=== PATIENT | male | born 1970 | race Caucasian/White ===

== ENCOUNTER → 2017-09-22 | Outpatient (CLI) | payer MEDICARE, OTHER ==
[2017-09-22 10:18] LABS: HCT 37.2 % (39.0-53.0); HGB 11.2 gm/dL (13.0-17.5); Hypochromasia Moderate; MCH 31.1 pg (25.0-35.0); MCHC 30.3 g/dL (31.0-37.0); MCV 102.8 fL (80.0-100.0); Macrocytosis Slight; Mean Platelet Volume 8.1; Platelet Count 410 k/uL (150-450); RBC 3.61 m/uL (4.30-5.90); RDW 14.8 % (11.5-15.5); WBC 5.7 k/uL (3.8-10.6)
[2017-09-22 10:22] LABS: INR 1.1 (<1.2); Prothrombin Time 10.7 sec (9.0-12.0)
[2017-09-22 10:31] LABS: Albumin 3.6 g/dL (3.5-5.0); Calcium 9.4 mg/dL (8.4-10.2); Phosphorus 3.2 mg/dL (2.5-4.5); Total Bilirubin 0.8 mg/dL (0.2-1.3); Total Protein 7.4 g/dL (6.3-8.2)
[2017-09-22 10:33] LABS: Potassium 4.7 mmol/L (3.5-5.1)
--- NOTE | 2017-09-22 10:50 | US ---
EXAMINATION TYPE: US kidneys/renal and bladder DATE OF EXAM: 09/22/2017 COMPARISON: 08/29/2012 CLINICAL HISTORY: R94.4 ABN KIDNEY FUNCTIONS. Abnormal labs. Poor historian. Hx of Down Syndrome an d Autism EXAM MEASUREMENTS: Right Kidney: 6.8 x 3.3 x 3.2 cm Left Kidney: 6.9 x 4.8 x 3.3 cm Limited exam due to patient unable to stay still during the exam Right Kidney: Appears small in size. No hydronephrosis or masses seen Left Kidney: Appears small in size. No hydronephrosis or masses seen Bladder: Nondistended, not visualized There is no evidence for hydronephrosis at this point in time. No nephrolithiasis is seen. No tomasa s are identified. The urinary bladder is anechoic. Bilateral ureteral jets are seen. IMPRESSION: Stable diminutive kidneys.
[2017-09-22 11:03] LABS: Appearance,Urine Clear (Clear); Bilirubin,Urine Negative (Negative); Blood,Urine Negative (Negative); Color,Urine Yellow; Glucose,Urine (UA) Negative (Negative); Ketones,Urine Negative (Negative); Leukocyte Esterase,Urine Negative (Negative); Nitrite,Urine Negative (Negative); PH, Urine 5.5 (5.0-8.0); Protein,Urine Negative (Negative); Specific Gravity,Urine 1.018 (1.001-1.035); Urobilinogen,Urine <2.0 mg/dL (<2.0)
== END | disposition home or self-care (01) ==
LOC: RADUSWWP 09:39 → EEVIPCON 11:00
PROVIDERS: ATTEND Family Medicine
DX: N27.1 Small kidney, bilateral (principal); R94.4 Abnormal results of kidney function studies
CPT/HCPCS: 36415; 76770; 80053; 81003; 84100; 85027; 85610

== ENCOUNTER → 2018-01-10 | Outpatient (CLI) | payer MEDICARE, OTHER ==
[2018-01-10 10:41] LABS: HCT 39.5 % (39.0-53.0); HGB 12.7 gm/dL (13.0-17.5); MCH 32.9 pg (25.0-35.0); MCHC 32.2 g/dL (31.0-37.0); MCV 102.2 fL (80.0-100.0); Macrocytosis Slight; Mean Platelet Volume 7.4; Platelet Count 269 k/uL (150-450); RBC 3.86 m/uL (4.30-5.90); RDW 15.3 % (11.5-15.5); WBC 4.7 k/uL (3.8-10.6)
[2018-01-10 10:44] LABS: Appearance,Urine Clear (Clear); Bacteria,Urine Rare /hpf; Bilirubin,Urine Negative (Negative); Blood,Urine Trace (Negative); Color,Urine Light Yellow; Glucose,Urine (UA) Negative (Negative); Ketones,Urine Negative (Negative); Leukocyte Esterase,Urine Negative (Negative); Mucus,Urine Rare /hpf; Nitrite,Urine Negative (Negative); Protein,Urine Negative (Negative); RBC,Urine 1 /hpf (0-5); Urobilinogen,Urine <2.0 mg/dL (<2.0); WBC,Urine 1 /hpf (0-5)
[2018-01-10 11:07] LABS: Albumin 3.9 g/dL (3.5-5.0); Magnesium 1.9 mg/dL (1.6-2.3); Phosphorus 3.4 mg/dL (2.5-4.5); Total Bilirubin 0.6 mg/dL (0.2-1.3); Total Protein 7.1 g/dL (6.3-8.2); Uric Acid 7.5 mg/dL (3.5-8.5)
[2018-01-10 16:08] LABS: Iron Saturation 15.02 (15.00-50.00)
[2018-01-10 16:13] LABS: Vitamin D 25 Hydroxy 23.7 ng/mL (30.0-100.0)
[2018-01-10 17:52] LABS: Parathyroid Hormone Intact 108.2 pg/mL (14.0-72.0)
== END | disposition home or self-care (01) ==
LOC: LABWHC1 10:03
PROVIDERS: ATTEND Internal Medicine
DX: E55.9 Vitamin D deficiency, unspecified (principal); M10.9 Gout, unspecified; N39.0 Urinary tract infection, site not specified; D63.1 Anemia in chronic kidney disease; N18.3 Chronic kidney disease, stage 3 (moderate); N25.81 Secondary hyperparathyroidism of renal origin
CPT/HCPCS: 36415; 80053; 81001; 82306; 82728; 83540; 83550; 83735; 83970; 84100; 84550; 85027

== ENCOUNTER 2018-06-01 21:26 | Inpatient (IN) | payer MEDICARE, OTHER ==
[2018-06-01] MEDS: SODIUM CHLORIDE 0.9% 500 ML 500 ML IV SCH (22:42)
[2018-06-01 23:22] LABS: Albumin 3.5 g/dL (3.5-5.0); Calcium 8.8 mg/dL (8.4-10.2); Potassium 4.4 mmol/L (3.5-5.1); Total Bilirubin 0.4 mg/dL (0.2-1.3); Total Protein 7.2 g/dL (6.3-8.2)
[2018-06-01 23:32] LABS: INR 1.1 (<1.2); Prothrombin Time 10.8 sec (9.0-12.0)
[2018-06-01 23:44] LABS: Basophils % (A) 0 %; Eosinophils % (A) 0 %; HCT 37.2 % (39.0-53.0); HGB 11.5 gm/dL (13.0-17.5); Lymphocytes # (A) 0.5 k/uL (1.0-4.8); Lymphocytes % (A) 2 %; MCH 31.8 pg (25.0-35.0); MCHC 30.9 g/dL (31.0-37.0); MCV 103.1 fL (80.0-100.0); Macrocytosis Slight; Mean Platelet Volume 8.2; Monocytes # (A) 0.3 k/uL (0-1.0); Monocytes % (A) 1 %; Neutrophils # (A) 20.1 k/uL (1.3-7.7); Neutrophils % (A) 96 %; Platelet Count 371 k/uL (150-450); RBC 3.61 m/uL (4.30-5.90); RDW 14.4 % (11.5-15.5)
--- NOTE | 2018-06-02 00:05 | ED ---
URI HPI - General Chief Complaint: Upper Respiratory Infection Stated Complaint: coughing, shaking, not eating Time Seen by Provider: 06/01/18 22:20 Source: patient Mode of arrival: ambulatory Limitations: physical limitation - History of Present Illness Initial Comments: Adrian is a 47-year-old male with history of Down syndrome who presents the ED today with his caregiver for evaluation of cough and fever. Caregiver reports that Adrian has had a cough for a few days duration, however when he coughs up productive sputum he then swallows it. Caregiver reports that she noticed today that he had a fever and he didn't seem to want to eat or drink as much as usual so she decided to bring him to the ER for evaluation of possible ammonia. The patient is nonverbal at baseline, - Related Data Home Medications Medication Instructions Recorded Confirmed Allopurinol [Zyloprim] 100 mg PO DAILY 06/01/18 06/01/18 Ferrous Sulfate [Feosol] 325 mg PO BID 06/01/18 06/01/18 hydrOXYzine HCL [Atarax] 25 mg PO HS 06/01/18 06/01/18 Allergies Allergy/AdvReac Type Severity Reaction Status Date / Time No Known Allergies Allergy Verified 06/01/18 22:21 Review of Systems ROS Statement: Those systems with pertinent positive or pertinent negative responses have been documented in the HPI. ROS Other: All systems not noted in ROS Statement are negative. Limitations: ROS unobtainable due to patients medical condition ( is nonverbal) Past Medical History Additional Past Medical History / Comment(s): Down syndrom and autism, kidney issues, cardiac cushion defects History of Any Multi-Drug Resistant Organisms: None Reported Past Surgical History: No Surgical Hx Reported Past Psychological History: No Psychological Hx Reported Smoking Status: Never smoker Past Alcohol Use History: None Reported Past Drug Use History: None Reported General Exam - General Exam Comments Initial Comments: GENERAL: Traumatic appearance HENT: Down faces, webbed neck EYES: The sclera were anicteric and conjunctiva were pink and moist. Extraocular movements were intact and pupils were equal round and reactive to light. Eyelids were unremarkable. PULMONARY: Decreased breath sounds at bilateral bases CARDIOVASCULAR: tachycardic systolic murmus ABDOMEN: Soft and nontender with normal bowel sounds. Patient ticklish and laughing on exam SKIN: Psoriatic lesions on arms NEUROLOGIC: Non-verbal, moving all extremities MUSCULOSKELETAL: Normal extremities with adequate strength and full range of motion. No lower extremity swelling or edema. No calf tenderness. LYMPHATICS: No significant lymphadenopathy is noted PSYCHIATRIC: Non-verbal, autistic, laughing Limitations: no limitations Limitations: physical limitation Course Vital Signs 06/01/18 06/02/18 06/02/18 21:37 02:22 03:26 Temperature 100.7 F H Pulse Rate 107 H 85 66 Respiratory 20 20 16 Rate Blood Pressure 124/75 105/66 100/66 O2 Sat by Pulse 95 95 96 Oximetry Medical Decision Making - Medical Decision Making Patient was seen and evaluated history is obtained from the caregiver Sepsis workup was ordered Chest x-ray consistent with bilateral pneumonia, labs to reveal leukocytosis mildly elevated creatinine that the patient does have a chronic kidney disease IV antibiotics and fluids were ordered Caregiver agreeable to plan for admission for IV fluids and antibiotics Patient is improving after IV fluids, heart rate improved, sleeping comfortably , caregiver remains at bedside Patient care was discussed with Dr. Reina primary care physician who accepts the admission - Lab Data Result diagrams: 06/01/18 22:39 06/01/18 22:39 Lab Results 06/01/18 06/01/18 06/01/18 Range/Units 22:39 22:39 22:39 WBC 21.0 H (3.8-10.6) k/uL RBC 3.61 L (4.30-5.90) m/uL Hgb 11.5 L (13.0-17.5) gm/dL Hct 37.2 L (39.0-53.0) % MCV 103.1 H (80.0-100.0) fL MCH 31.8 (25.0-35.0) pg MCHC 30.9 L (31.0-37.0) g/dL RDW 14.4 (11.5-15.5) % Plt Count 371 (150-450) k/uL Neutrophils % 96 % Lymphocytes % 2 % Monocytes % 1 % Eosinophils % 0 % Basophils % 0 % Neutrophils # 20.1 H (1.3-7.7) k/uL Lymphocytes # 0.5 L (1.0-4.8) k/uL Monocytes # 0.3 (0-1.0) k/uL Eosinophils # 0.0 (0-0.7) k/uL Basophils # 0.0 (0-0.2) k/uL Macrocytosis Slight PT (9.0-12.0) sec INR (<1.2) APTT (22.0-30.0) sec Sodium 141 (137-145) mmol/L Potassium 4.4 (3.5-5.1) mmol/L Chloride 110 H (98-107) mmol/L Carbon Dioxide 21 L (22-30) mmol/L Anion Gap 10 mmol/L BUN 27 H (9-20) mg/dL Creatinine 2.47 H (0.66-1.25) mg/dL Est GFR (CKD-EPI)AfAm 34 (>60 ml/min/1.73 sqM) Est GFR (CKD-EPI)NonAf 30 (>60 ml/min/1.73 sqM) Glucose 167 H (74-99) mg/dL Plasma Lactic Acid Maurisio 1.5 (0.7-2.0) mmol/L Calcium 8.8 (8.4-10.2) mg/dL Total Bilirubin 0.4 (0.2-1.3) mg/dL AST 25 (17-59) U/L ALT 28 (21-72) U/L Alkaline Phosphatase 93 (38-126) U/L Total Protein 7.2 (6.3-8.2) g/dL Albumin 3.5 (3.5-5.0) g/dL 06/01/18 Range/Units 22:39 WBC (3.8-10.6) k/uL RBC (4.30-5.90) m/uL Hgb (13.0-17.5) gm/dL Hct (39.0-53.0) % MCV (80.0-100.0) fL MCH (25.0-35.0) pg MCHC (31.0-37.0) g/dL RDW (11.5-15.5) % Plt Count (150-450) k/uL Neutrophils % % Lymphocytes % % Monocytes % % Eosinophils % % Basophils % % Neutrophils # (1.3-7.7) k/uL Lymphocytes # (1.0-4.8) k/uL Monocytes # (0-1.0) k/uL Eosinophils # (0-0.7) k/uL Basophils # (0-0.2) k/uL Macrocytosis PT 10.8 (9.0-12.0) sec INR 1.1 (<1.2) APTT 24.0 (22.0-30.0) sec Sodium (137-145) mmol/L Potassium (3.5-5.1) mmol/L Chloride (98-107) mmol/L Carbon Dioxide (22-30) mmol/L Anion Gap mmol/L BUN (9-20) mg/dL Creatinine (0.66-1.25) mg/dL Est GFR (CKD-EPI)AfAm (>60 ml/min/1.73 sqM) Est GFR (CKD-EPI)NonAf (>60 ml/min/1.73 sqM) Glucose (74-99) mg/dL Plasma Lactic Acid Maurisio (0.7-2.0) mmol/L Calcium (8.4-10.2) mg/dL Total Bilirubin (0.2-1.3) mg/dL AST (17-59) U/L ALT (21-72) U/L Alkaline Phosphatase (38-126) U/L Total Protein (6.3-8.2) g/dL Albumin (3.5-5.0) g/dL Disposition Clinical Impression: Bilateral pneumonia, Sepsis Disposition: ADMITTED IP TO THIS [facility] Condition: Serious Referrals: Joni Reina DO [Primary Care Provider] - 1-2 days
--- NOTE | 2018-06-02 00:54 | XR ---
EXAMINATION TYPE: XR chest 2V DATE OF EXAM: 06/02/2018 COMPARISON: NONE HISTORY: Cough and fever TECHNIQUE: Frontal and lateral views of the chest are obtained. FINDINGS: Heart is normal. There is some coarsening of the lung markings. There is no gross heart fa ilure. There are probably bilateral lower lobe pulmonary infiltrates. There is no definite heart fail ure. There are chest leads. Bony thorax is intact. IMPRESSION: Bilateral lower lobe pneumonia. Pulmonary fibrosis. No gross heart failure.
[2018-06-02] MEDS ORDERED: AZITHROMYCIN 500 MG in SODIUM CHLORIDE 0.9% 250 ML IVPB STA (01:02)
[2018-06-02] MEDS ORDERED: PNEUMONIA PROTOCOL UTILIZED 1 EACH MISC PO PRN (04:26)
[2018-06-02 10:58] VITALS: BMI 23.2
[2018-06-02] MEDS ORDERED: IPRATROPIUM-ALBUTEROL 3 ML NEB INHALATION PRN (14:17)
[2018-06-02] MEDS ORDERED: ACETAMINOPHEN TAB 325 MG TAB PO PRN (14:25)
--- NOTE | 2018-06-02 14:26 | P.HPIM ---
History of Present Illness H&P Date: 06/02/18 Chief Complaint: cough, fever 47-year-old male with a past medical history significant for Down syndrome who presented to the emergency room with his caregiver due to cough and fever. The patient is nonverbal at baseline. Caregiver reports patient has had a nonproductive cough for about 4-5 days. She states he was just not acting like himself at home and she knew something was wrong so she came to the ER for further evaluation. Chest x-ray completed in the emergency room revealed bilateral lower lobe pneumonia. Pulmonary fibrosis. No gross heart failure. Laboratory data upon admission revealed white count 21.5. Hemoglobin 11.5. Daily count 371. Sodium 141. Potassium 4.4. BUN 27. Creatinine 2.47. Glucose 167. Lactic acid 1.5. Testing for influenza A and B was negative. The patient was admitted to the hospital under the care of Dr. Reina. REVIEW OF SYSTEMS: Unable to complete due to mental status PHYSICAL EXAM: GENERAL: This is a 47-year-old male in no apparent distress at the time of examination. HEENT: Head is atraumatic, normocephalic. Pupils are equal, round, and reactive to light. Sclerae anicteric. Conjunctivae are clear. Mucus membranes of the mouth are moist. Neck is supple. RESPIRATORY: Lungs coarse. No wheezes, rales, or rhonchi. No use of accessory muscles. Patient maintaining oxygen saturation greater than 92%. CARDIOVASCULAR: Regular rate and rhythm. S1 and S2 noted. No systolic or diastolic murmur auscultated. No JVD noted. No S3 or S4 noted. GASTROINTESTINAL: No distention noted. Abdomen soft and round. Normal active bowel sounds auscultated x 4 quadrants. INTEGUMENTARY: No cyanosis. No jaundice. No rashes noted. No cellulitis noted. EXTREMITIES: 2+ peripheral pulses. No evidence of peripheral edema. NEUROLOGIC: Cranial nerves II-XII grossly intact. PSYCHIATRIC: Awake and alert. Nonverbal at baseline. ASSESSMENT: Bilateral pneumonia, community-acquired Leukocytosis Acute kidney injury, current 2.47 on admission, secondary to decreased oral intake Chronic kidney disease, stage III History of Down syndrome History of autism History of gout PLAN: Continue antibiotics: zithromax and ceftriaxone Sputum culture Mucinex await results of blood cultures Home meds as appropriate Monitor labs GI prophylaxis: Protonix 40 mg PO Daily DVT prophylaxis: SCDs to bilateral LE Monitor vital signs and address as appropriate Discharge planning: Patient to return home when stable. Patient has a caregiver. Further recommendations pending patient's course Nurse practitioner note has been reviewed by physician. Signing provider agrees with the documented findings, assessment, and plan of care. Past Medical History Additional Past Medical History / Comment(s): eDown syndrom and autism, kidney issues, cardiac cushion defects, gout arthritis and psoriasis pnuemonia years ago with pneumothorax History of Any Multi-Drug Resistant Organisms: None Reported Past Surgical History: No Surgical Hx Reported Past Psychological History: No Psychological Hx Reported Smoking Status: Never smoker Past Alcohol Use History: None Reported Past Drug Use History: None Reported Medications and Allergies Home Medications Medication Instructions Recorded Confirmed Type Allopurinol [Zyloprim] 100 mg PO DAILY 06/01/18 06/01/18 History Ferrous Sulfate [Feosol] 325 mg PO BID 06/01/18 06/01/18 History hydrOXYzine HCL [Atarax] 25 mg PO HS 06/01/18 06/01/18 History Allergies Allergy/AdvReac Type Severity Reaction Status Date / Time No Known Allergies Allergy Verified 06/01/18 22:21 Physical Exam Vitals: Vital Signs Temp Pulse Resp BP Pulse Ox 06/02/18 10:00 82 18 103/63 06/02/18 09:00 86 10 L 110/67 06/02/18 08:00 86 11 L 93/67 06/02/18 07:00 63 13 114/54 06/02/18 06:00 62 13 102/61 97 06/02/18 05:00 80 12 98/65 95 06/02/18 04:00 75 14 99/65 96 06/02/18 03:26 66 16 100/66 96 06/02/18 02:22 85 20 105/66 95 06/01/18 21:37 100.7 F H 107 H 20 124/75 95 Intake and Output 06/01/18 06/02/18 06/02/18 22:59 06:59 14:59 Other: Weight 52.163 kg 52.163 kg Results CBC & Chem 7: 06/01/18 22:39 06/01/18 22:39 Labs: Abnormal Lab Results - Last 24 Hours (Table) 11/29/18 11/29/18 Range/Units 22:39 22:39 WBC 21.0 H (3.8-10.6) k/uL RBC 3.61 L (4.30-5.90) m/uL Hgb 11.5 L (13.0-17.5) gm/dL Hct 37.2 L (39.0-53.0) % MCV 103.1 H (80.0-100.0) fL MCHC 30.9 L (31.0-37.0) g/dL Neutrophils # 20.1 H (1.3-7.7) k/uL Lymphocytes # 0.5 L (1.0-4.8) k/uL Chloride 110 H (98-107) mmol/L Carbon Dioxide 21 L (22-30) mmol/L BUN 27 H (9-20) mg/dL Creatinine 2.47 H (0.66-1.25) mg/dL Glucose 167 H (74-99) mg/dL Thrombosis Risk Factor Assmnt - Choose All That Apply Each Factor Represents 1 point: Age 41-60 years Thrombosis Risk Factor Assessment Total Risk Factor Score: 1 Thrombosis Risk Factor Assessment Level: Low Risk
[2018-06-02] MEDS: SODIUM CHLORIDE 0.9% 1,000 ML IV SCH (15:45)
[2018-06-02] MEDS: IPRATROPIUM-ALBUTEROL 3 ML NEB INHALATION SCH ×3 (17:20→23:26)
[2018-06-02] MEDS: FERROUS SULFATE 325 MG TAB PO SCH (17:27)
[2018-06-02] MEDS: guaiFENesin 600 MG TABLET.ER PO SCH (22:41)
[2018-06-02] MEDS: hydrOXYzine HCL 25 MG TAB PO SCH (22:41)
[2018-06-03] MEDS: IPRATROPIUM-ALBUTEROL 3 ML NEB INHALATION SCH ×6 (02:59→23:30)
[2018-06-03] MEDS: SODIUM CHLORIDE 0.9% 1,000 ML IV SCH ×2 (06:38→17:11)
[2018-06-03] MEDS: FERROUS SULFATE 325 MG TAB PO SCH ×2 (08:04→18:01)
[2018-06-03] MEDS: guaiFENesin 600 MG TABLET.ER PO SCH ×2 (08:04→20:04)
[2018-06-03] MEDS: AZITHROMYCIN 500 MG TAB PO SCH (08:04)
[2018-06-03] MEDS: PANTOPRAZOLE 40 MG TABLET PO SCH (08:04)
[2018-06-03] MEDS: ALLOPURINOL 100 MG TAB PO SCH (08:04)
--- NOTE | 2018-06-03 09:46 | XR ---
EXAMINATION TYPE: XR chest 2V DATE OF EXAM: 06/03/2018 COMPARISON: 06/02/2018 HISTORY: Follow-up for pneumonia. TECHNIQUE: Frontal and lateral views of the chest are obtained. FINDINGS: Frontal view is suboptimal however multifocal airspace disease is demonstrated on the late ral view. Airspace disease is most pronounced within the right middle lobe and at the left lung base although also seen within the right lower lobe. Cardiomediastinal silhouette again appears upper limi ts of normal size but is partially obscured. Osseous structures are grossly intact. IMPRESSION: Suboptimal exam however there is appearance of increasing confluence of the right middle lobe and bibasilar opacities suspicious for multifocal pneumonia.
[2018-06-03 12:00] LABS: Basophils # (A) 0.1 k/uL (0-0.2); Basophils % (A) 1 %; Eosinophils # (A) 0.1 k/uL (0-0.7); Eosinophils % (A) 1 %; HCT 35.1 % (39.0-53.0); Hypochromasia Slight; Lymphocytes # (A) 1.4 k/uL (1.0-4.8); Lymphocytes % (A) 15 %; MCH 32.4 pg (25.0-35.0); MCHC 31.4 g/dL (31.0-37.0); MCV 103.4 fL (80.0-100.0); Macrocytosis Slight; Mean Platelet Volume 7.7; Monocytes # (A) 0.5 k/uL (0-1.0); Monocytes % (A) 5 %; Neutrophils # (A) 7.4 k/uL (1.3-7.7); Neutrophils % (A) 77 %; Platelet Count 339 k/uL (150-450); RDW 14.3 % (11.5-15.5); WBC 9.6 k/uL (3.8-10.6)
[2018-06-03 12:20] LABS: Calcium 8.2 mg/dL (8.4-10.2); Potassium 4.7 mmol/L (3.5-5.1)
[2018-06-03] MEDS ORDERED: FUROSEMIDE 10 MG/ML 4 ML VIAL IV STA (18:33)
[2018-06-03] MEDS: hydrOXYzine HCL 25 MG TAB PO SCH (20:04)
--- NOTE | 2018-06-03 23:30 | PN ---
PROGRESS NOTE DATE OF SERVICE: 06/03/2018. I am covering for Dr. Reina. HISTORY OF PRESENT ILLNESS: This 47-year-old gentleman with a past medical history of multiple medical problems including Down syndrome,kidney disease system, cardiac , gouty arthritis, psoriasis, and previous pneumonia, was admitted with bilateral pneumonia. Otherwise at this time the patient still has a cough. Patient is noncommunicative at this time. The caregiver is at the bedside. The patient is closely monitored. Patient on broad- spectrum IV antibiotics. PAST MEDICAL HISTORY: Reviewed. REVIEW OF SYSTEMS: Could not be taken. CURRENT MEDICATIONS: 1. Tylenol 650 every 4 hours p.r.n. 2. DuoNeb q.i.d. and p.r.n. 4. Zithromax 500 mg p.o. daily. 5. Rocephin 1 g daily. 6. Iron sulfate 320 mg b.i.d. 7. Mucinex 600 mg p.o. b.i.d. 8. Atarax 25 mg at bedtime. 9. Protonix 40 mg daily. PHYSICAL EXAM: Patient is alert, oriented x3. The pulse is 74, blood pressure 114/70, respiration 18, temperature 98.6, pulse ox 94% on room air. HEENT: Conjunctivae normal. Oral mucosa moist. NECK: No jugular venous distention. No lymph node enlargement. CARDIOVASCULAR: S1 and S2 muffled. LUNGS: Breath sounds diminished at the bases. Scattered rhonchi and coarse crackles present. ABDOMEN: Soft, nontender. Legs no edema. NERVOUS SYSTEM: No focal deficits. LABS: WBC 9.2, hemoglobin 11, MCV 103, sodium 143, potassium 4.7. Influenza is negative. ASSESSMENT: 1. Bilateral pneumonia, possibly community-acquired. 2. Leukocytosis. 3. Acute kidney injury with possible prerenal factors. 4. Chronic kidney disease stage III. 5. History of Down syndrome. 6. gout. RECOMMENDATIONS AND DISCUSSION: In this 47-year-old gentleman who presented with multiple complex medical problems, we will monitor the patient closely, continue the current medications and treatment plan. At this time I recommend continue with bronchodilators. Continue with IV antibiotics. Patient is on Zithromax and Rocephin. I would recommend to continue the current medications. Chest x-ray was personally reviewed. Further recommendations to follow. MMODL / IJN: [id number] / SHANEL
[2018-06-04] MEDS: IPRATROPIUM-ALBUTEROL 3 ML NEB INHALATION SCH ×6 (03:09→23:29)
[2018-06-04] MEDS: PANTOPRAZOLE 40 MG TABLET PO SCH (07:32)
[2018-06-04] MEDS: FERROUS SULFATE 325 MG TAB PO SCH ×2 (07:32→17:28)
[2018-06-04] MEDS: ALLOPURINOL 100 MG TAB PO SCH (07:32)
[2018-06-04] MEDS: guaiFENesin 600 MG TABLET.ER PO SCH ×2 (07:32→19:54)
[2018-06-04] MEDS: AZITHROMYCIN 500 MG TAB PO SCH (07:33)
[2018-06-04 09:30] LABS: Basophils # (A) 0.1 k/uL (0-0.2); Basophils % (A) 1 %; Eosinophils # (A) 0.1 k/uL (0-0.7); Eosinophils % (A) 1 %; HCT 36.5 % (39.0-53.0); HGB 11.4 gm/dL (13.0-17.5); Hypochromasia Slight; Lymphocytes # (A) 1.4 k/uL (1.0-4.8); Lymphocytes % (A) 19 %; MCH 32.4 pg (25.0-35.0); MCHC 31.3 g/dL (31.0-37.0); MCV 103.4 fL (80.0-100.0); Macrocytosis Slight; Mean Platelet Volume 7.5; Monocytes # (A) 0.4 k/uL (0-1.0); Monocytes % (A) 5 %; Neutrophils # (A) 5.3 k/uL (1.3-7.7); Neutrophils % (A) 72 %; Platelet Count 319 k/uL (150-450); RBC 3.53 m/uL (4.30-5.90); RDW 14.2 % (11.5-15.5); WBC 7.4 k/uL (3.8-10.6)
[2018-06-04 09:32] LABS: Calcium 8.2 mg/dL (8.4-10.2); Potassium 4.4 mmol/L (3.5-5.1)
[2018-06-04] MEDS: hydrOXYzine HCL 25 MG TAB PO SCH (19:53)
--- NOTE | 2018-06-04 20:16 | PN ---
PROGRESS NOTE DATE OF SERVICE: 06/04/2018 I am covering for Dr. Reina. This 47-year-old gentleman was admitted with bilateral pneumonia. Also had renal failure. No chest pain. No palpitations. No fever. EXAM: Alert and oriented x3. Pulse is 79, blood pressure 119/60, respiration 18, temperature 97.4, pulse ox 94% on room air. HEENT: Conjunctivae normal. Oral mucosa moist. NECK: No jugular venous distention. No lymph node enlargement. CARDIOVASCULAR: S1, S2. RESPIRATORY: Diminished breath sounds at the bases. A few scattered rhonchi and crackles. ABDOMEN: Soft, nontender. LEGS: No swelling. NERVOUS SYSTEM: No focal deficits. LABS: WBC 7, hemoglobin 11.4. Creatinine is 2.39. Influenza negative. ASSESSMENT: 1. Bilateral pneumonia, possibly community acquired. 2. Leukocytosis. 3. Acute kidney injury with possible prerenal factor. 4. Chronic kidney disease stage III. 5. History of Down syndrome. 6. Gout history. RECOMMENDATIONS: Recommend to continue current management, continue symptomatic treatment. The BNP is only 413. Continue rest of medications. Repeat labs. Repeat creatinine. Continue the antibiotics. Dr. Reina will follow. MMODL / IJN: [id number] /
[2018-06-05] MEDS: IPRATROPIUM-ALBUTEROL 3 ML NEB INHALATION SCH ×2 (04:17→09:57)
[2018-06-05 05:37] VITALS: BP 168/92; PULSE 71; RESP 18; TEMP 98.3
[2018-06-05] MEDS: guaiFENesin 600 MG TABLET.ER PO SCH (07:30)
[2018-06-05] MEDS: PANTOPRAZOLE 40 MG TABLET PO SCH (07:30)
[2018-06-05] MEDS: ALLOPURINOL 100 MG TAB PO SCH (07:30)
[2018-06-05] MEDS: FERROUS SULFATE 325 MG TAB PO SCH (07:30)
[2018-06-05] MEDS: AZITHROMYCIN 500 MG TAB PO SCH (07:30)
--- NOTE | 2018-06-05 09:38 | P.DS ---
Providers Date of admission: 06/02/18 04:26 Expected date of discharge: 06/05/18 Attending physician: Joni Reina Primary care physician: Joni Reina [facility] Course: 47-year-old male with a past medical history significant for Down syndrome who presented to the emergency room with his caregiver due to cough and fever. The patient is nonverbal at baseline. Caregiver reports patient has had a nonproductive cough for about 4-5 days. She states he was just not acting like himself at home and she knew something was wrong so she came to the ER for further evaluation. Chest x-ray completed in the emergency room revealed bilateral lower lobe pneumonia. Pulmonary fibrosis. No gross heart failure. Laboratory data upon admission revealed white count 21.5. Hemoglobin 11.5. Daily count 371. Sodium 141. Potassium 4.4. BUN 27. Creatinine 2.47. Glucose 167. Lactic acid 1.5. Testing for influenza A and B was negative. The patient received IV hydration and antibiotics. He has improved and is back to his baseline. He was deemed stable for discharge home today. Discharge Diagnosis: Bilateral pneumonia, community-acquired Sepsis, present on admission, secondary to above, resolved Leukocytosis Acute kidney injury, current 2.47 on admission, secondary to decreased oral intake Chronic kidney disease, stage III History of Down syndrome History of autism History of gout Nurse practitioner note has been reviewed by physician. Signing provider agrees with the documented findings, assessment, and plan of care. Patient Condition at Discharge: Good Plan - Discharge Summary New Discharge Prescriptions: New Cefuroxime Axetil [Ceftin] 500 mg PO BID #10 tab guaiFENesin [Mucinex] 600 mg PO Q12HR #30 tab Continue hydrOXYzine HCL [Atarax] 25 mg PO HS Ferrous Sulfate [Iron (65 MG Elemental)] 325 mg PO BID Allopurinol [Zyloprim] 100 mg PO DAILY Discharge Medication List Allopurinol [Zyloprim] 100 mg PO DAILY 06/01/18 [History] Ferrous Sulfate [Iron (65 MG Elemental)] 325 mg PO BID 06/01/18 [History] hydrOXYzine HCL [Atarax] 25 mg PO HS 06/01/18 [History] Cefuroxime Axetil [Ceftin] 500 mg PO BID #10 tab 06/05/18 [Rx] guaiFENesin [Mucinex] 600 mg PO Q12HR #30 tab 06/05/18 [Rx] Follow up Appointment(s)/Referral(s): Joni Reina DO [Primary Care Provider] - 1 Week (caregiver stated she will make his appointment) Patient Instructions/Handouts: Pneumonia (DC) Discharge Disposition: HOME SELF-CARE
--- NOTE | 2018-06-05 11:13 | ECHOF ---
Referral Reason:chf MEASUREMENTS -------- HEIGHT: 149.9 cm WEIGHT: 52.2 kg BP: 168/92 RVIDd: 3.5 cm (< 3.3) IVSd: 1.0 cm (0.6 - 1.1) LVIDd: 4.1 cm (3.9 - 5.3) LVPWd: 0.9 cm (0.6 - 1.1) IVSs: 1.4 cm LVIDs: 2.4 cm LVPWs: 1.5 cm LA Diam: 2.5 cm (2.7 - 3.8) LAESV Index (A-L): 9.35 ml/m Ao Diam: 3.1 cm (2.0 - 3.7) AV Cusp: 2.2 cm (1.5 - 2.6) MV EXCURSION: 12.475 mm (> 18.000) MV EF SLOPE: 31 mm/s (70 - 150) EPSS: 1.1 cm AR PHT: 926 ms RAP: 5.00 mmHg RVSP: 85.33 mmHg FINDINGS -------- Sinus rhythm. This was a technically adequate study. The left ventricular size is normal. Left ventricular wall thickness is normal. Overall left vent ricular systolic function is normal with, an EF between 55 - 60 %. The right ventricle is mildly enlarged. Normal LA size by volume 22+/-6 ml/m2. The right atrium is normal in size. The aortic valve is trileaflet and appears structurally normal. There is mild aortic regurgitation. The mitral valve is normal. Mild mitral regurgitation is present. Moderate tricuspid regurgitation present. There is severe pulmonary hypertension. Mild prolapse o f the anterior tricuspid valve leaflet. There is no pulmonic regurgitation present. The aortic root size is normal. IVC Not well visulized. There is no pericardial effusion. CONCLUSIONS -------- 1. Sinus rhythm. 2. This was a technically adequate study. 3. The left ventricular size is normal. 4. Left ventricular wall thickness is normal. 5. Overall left ventricular systolic function is normal with, an EF between 55 - 60 %. 6. The right ventricle is mildly enlarged. 7. Normal LA size by volume 22+/-6 ml/m2. 8. The aortic valve is trileaflet and appears structurally normal. 9. There is mild aortic regurgitation. 10. The mitral valve is normal. 11. Mild mitral regurgitation is present. 12. Moderate tricuspid regurgitation present. 13. There is severe pulmonary hypertension. 14. Mild prolapse of the anterior tricuspid valve leaflet. 15. There is no pulmonic regurgitation present. 16. The aortic root size is normal. 17. IVC Not well visulized. 18. There is no pericardial effusion. AIR HOLE DRILLER: Violet Bruno RDCS
--- NOTE | 2018-06-08 07:46 | CDI ---
Last Revision, June 2017 Documentation Clarification Form Date: 06/08/18 From: Vianey Sinclair Phone: If you have a question regarding this query, please contact Prieto Prather at [phone] between 8am and 5pm. Admit Date: 06/02/2018 4:26:00 AM Patient Name: Adrian Londono Visit Number: [id number] Discharge Date: 06/05/18 ATTENTION: The Clinical Documentation Specialists (CDI) and [facility] Coding Staff appreciate your assistance in clarifying documentation. Please respond to the clarification below the line at the bottom and electronically sign. The CDI & [facility] Coding staff will review the response and follow-up if needed. Please note: Queries are made part of the Legal Health Record. If you have any questions, please contact the author of this message via ITS. Joni Middleton , /LAN Ya Sepsis is documented in the ED note. History/Risk Factors: Patient was admitted for community acquired pneumonia. Patient has a history of CKD stage 3, pulmonary fibrosis, Down's syndrome and autism. Clinical Indicators: Leukocytosis, fever. WBC/Left Shift:: 21.0/20.1 Lactic acid: 1.5 Blood cultures: No growth. Vitals signs on admission: T. 100.7, P. 107, R. 20, BP 124/75 Treatment: Antibiotics: IV Azithromycin, IV Ceftriaxone, PO Azithromycin IV Bolus: 1 liter sodium chloride In your professional opinion, please clarify if these findings signify one of the following conditions, whether the condition is POA, and cause, if known: Sepsis ruled out SIRS, without underlying infectious process Sepsis Severe Sepsis Septic Shock Other, please specify Unable to determine Link or clarify if there is associated (due to/with): Organ failure Shock MTDD
== END 2018-06-05 10:29 | disposition home or self-care (01) | DRG 871 ==
LOC: EC 21:26 → 4MS4W 06-02 04:26
PROVIDERS: ADMIT Family Medicine; ATTEND Family Medicine
DX: A41.9 Sepsis, unspecified organism (principal); J18.9 Pneumonia, unspecified organism; F84.0 Autistic disorder; N17.9 Acute kidney failure, unspecified; J84.10 Pulmonary fibrosis, unspecified; M10.9 Gout, unspecified; N18.3 Chronic kidney disease, stage 3 (moderate); Q90.9 Down syndrome, unspecified; L40.9 Psoriasis, unspecified; Z79.899 Other long term (current) drug therapy; Z87.01 Personal history of pneumonia (recurrent)
CPT/HCPCS: 36415; 71046; 80048; 80053; 83605; 83880; 85025; 85610; 85730; 87040; 87502; 93005; 93306; 94640; 96365; 96366; 96367; 99284

== ENCOUNTER 2018-10-16 09:29 | Emergency (ER) | payer MEDICARE, OTHER ==
--- NOTE | 2018-10-16 10:20 | ED ---
General Adult HPI - General Chief complaint: Extremity Injury, Upper Stated complaint: left hand/fingers pain Time Seen by Provider: 10/16/18 09:44 Source: patient Mode of arrival: ambulatory Limitations: no limitations - History of Present Illness Initial comments: Dictation was produced using [employer] dictation software. please excuse any grammatical, word or spelling errors. Chief Complaint: 48-year-old male past medical history of autism and Down syndrome presents with left hand issues. History of Present Illness: 48-year-old male with mental retardation, Down syndrome and autism. He is brought in by tax credit leasing consultant. Patient noted to have abnormal hand positioning. Patient unable to provide detailed H PI at this time given mental status. However tax credit leasing consultant noted that this morning his hand was kind of in a closed position. Patient does have a history of arthritis. Clipper Machine was concerned patient is having a stroke. The ROS documented in this emergency department record has been reviewed and confirmed by me. Those systems with pertinent positive or negative responses have been documented in the HPI. All other systems are other negative and/or noncontributory. PHYSICAL EXAM: General Impression: not in acute distress HEENT: Normocephalic atraumatic, extra-ocular movements intact, pupils equal and reactive to light bilaterally, mucous membranes moist. Cardiovascular: Heart regular rate and rhythm, S1&S2 audible, no murmurs, rubs or gallops Chest: Lungs clear to auscultation bilaterally, no rhonchi, no wheeze, no rales Abdomen: Bowel sounds present, abdomen soft, non-tender, non-distended, no organomegaly Musculoskeletal: Pulses present and equal in all extremities, no peripheral edema Motor: no focal deficits noted Neurological: CN II-XII grossly intact, no focal motor or sensory deficits noted, no facial asymmetry, motor movements intact to the left hand, intact sensation to pain. Full abduction of left upper extremity symmetrical to right. No gait ataxia. Skin: Intact with no visualized rashes Psych: Normal affect and mood ED course: 48-year-old male with past medical history mental retardation, Down syndrome and autism presents with abnormal hand positioning. Patient is well- appearing at this time. At this point reassurance provided. No signs and symptoms to suggest stroke at this time. Likely patient's symptoms are secondary to arthritis. Clipper Machine is told to follow-up with primary care physician upon discharge per she is counseled and instructed on the signs of C VA. EKG interpretation: Ventricular rate [default value]. No TN prolongation, no QTC prolongation, no ST or T-wave changes noted. EKG compared to [default value] showing no changes. Overall, this EKG is unremarkable - Related Data Home Medications Medication Instructions Recorded Confirmed Allopurinol [Zyloprim] 100 mg PO DAILY 06/01/18 06/01/18 Ferrous Sulfate [Iron (65 MG 325 mg PO BID 06/01/18 06/01/18 Elemental)] hydrOXYzine HCL [Atarax] 25 mg PO HS 06/01/18 06/01/18 Previous Rx's Medication Instructions Recorded Cefuroxime Axetil [Ceftin] 500 mg PO BID #10 tab 06/05/18 guaiFENesin [Mucinex] 600 mg PO Q12HR #30 tab 06/05/18 Allergies Allergy/AdvReac Type Severity Reaction Status Date / Time No Known Allergies Allergy Verified 10/16/18 09:40 Review of Systems ROS Statement: Those systems with pertinent positive or pertinent negative responses have been documented in the HPI. ROS Other: All systems not noted in ROS Statement are negative. Past Medical History Additional Past Medical History / Comment(s): Down syndrom and autism, kidney issues, cardiac cushion defects, gout arthritis and psoriasis pnuemonia years ago with pneumothorax History of Any Multi-Drug Resistant Organisms: None Reported Past Surgical History: No Surgical Hx Reported Past Psychological History: No Psychological Hx Reported Smoking Status: Never smoker Past Alcohol Use History: None Reported Past Drug Use History: None Reported General Exam Limitations: no limitations Disposition Clinical Impression: Hand pain Disposition: HOME SELF-CARE Condition: Good Instructions (If sedation given, give patient instructions): Hand Sprain (ED) Is patient prescribed a controlled substance at d/c from ED?: No Referrals: Joni Reina DO [Primary Care Provider] - 1-2 days Time of Disposition: 10:20
== END 2018-10-16 10:36 | disposition home or self-care (01) ==
LOC: EC 09:29
DX: M79.642 Pain in left hand (principal); Q90.9 Down syndrome, unspecified; F84.0 Autistic disorder; M10.9 Gout, unspecified; Z79.899 Other long term (current) drug therapy
CPT/HCPCS: 99283

== ENCOUNTER 2019-07-26 13:31 | Inpatient (IN) | payer MEDICARE, OTHER ==
--- NOTE | 2019-07-26 14:30 | ED ---
General Adult HPI - General Chief complaint: Shortness of Breath Stated complaint: cough, SOB Time Seen by Provider: 07/26/19 13:57 Source: patient, RN notes reviewed, Caregiver Mode of arrival: wheelchair Limitations: altered mental status - History of Present Illness Initial comments: 48-year-old male presents to the emergency department for a chief complaint of cough. Caregiver states the patient developed a cough about 2 weeks ago. States he has been on Keflex for about 6 days but it does not seem to be improving. States his breathing seemed a little bit short of breath but then improved. States he is not eating normally but is continuing to drink some. States that he has had tremors which he gets with fevers however she has not detected any fevers. States that she is here because she would like patient to have a chest x-ray for pneumonia. She states that he is very uncooperative and would prefer to just do a chest x-ray and check for the flu before initiating any blood work. Patient is nonverbal.Patient has no other complaints at this time including chest pain, abdominal pain, nausea or vomiting, headache, or visual changes. - Related Data Home Medications Medication Instructions Recorded Confirmed Allopurinol [Zyloprim] 100 mg PO DAILY 06/01/18 10/16/18 Ferrous Sulfate [Iron (65 MG 325 mg PO BID 06/01/18 10/16/18 Elemental)] hydrOXYzine HCL [Atarax] 25 mg PO HS 06/01/18 10/16/18 Allergies Allergy/AdvReac Type Severity Reaction Status Date / Time amoxicillin AdvReac Unknown Verified 07/26/19 13:41 Review of Systems ROS Statement: Those systems with pertinent positive or pertinent negative responses have been documented in the HPI. ROS Other: All systems not noted in ROS Statement are negative. Past Medical History Additional Past Medical History / Comment(s): Down syndrom and autism, kidney issues, cardiac cushion defects, gout arthritis and psoriasis pnuemonia years ago with pneumothorax History of Any Multi-Drug Resistant Organisms: None Reported Past Surgical History: No Surgical Hx Reported Past Psychological History: No Psychological Hx Reported Smoking Status: Never smoker Past Alcohol Use History: None Reported Past Drug Use History: None Reported General Exam Limitations: altered mental status General appearance: alert, in no apparent distress (Ambulating around room) Head exam: Present: atraumatic, normocephalic, normal inspection Eye exam: Present: normal appearance, PERRL, EOMI. Absent: scleral icterus, conjunctival injection, periorbital swelling ENT exam: Present: normal exam, mucous membranes moist Neck exam: Present: normal inspection, full ROM. Absent: tenderness, meningismu s, lymphadenopathy Respiratory exam: Present: normal lung sounds bilaterally. Absent: respiratory distress, wheezes, rales, rhonchi, stridor Cardiovascular Exam: Present: regular rate, normal rhythm, normal heart sounds. Absent: bradycardia, tachycardia, irregular rhythm Neurological exam: Present: alert, normal gait Course Vital Signs 07/26/19 13:34 Temperature 98.1 F Pulse Rate 73 Respiratory 19 Rate Blood Pressure 142/71 O2 Sat by Pulse 93 L Oximetry Procedures - Sepsis Sepsis Focused Exam #1 Sepsis Focused Exam Complete: Yes Capillary Refill: < 2 Seconds: Fingers Peripheral Pulses: Normal: Radial (R) Skin Color: Normal for Patient Respiratory Exam: rales Cardiovascular Exam: regular rate, normal rhythm Medical Decision Making - Medical Decision Making Caregiver initially wanted to start with a chest x-ray and influenza. Influenza was negative however chest x-ray is nonspecific. Impression reads there may be a component of volume overload, pulmonary venous congestion, and interstitial edema. Correlate to exclude basilar pneumonia versus subsegmental atelectasis. Patient has been on Keflex. However on review of previous admission patient had acute kidney injury when he presented with similar complaints. He also had an Accu cardiogram about a year ago that showed ejection fraction between 55- 60%. At this point lab work was initiated. This did reveal a white count of 21.5, patient was started on Rocephin and azithromycin however does not meet sepsis criteria. Lactic acid was found to be 7.4 and will be repeated. Creatinine 2.18 appears chronic. Chest x-ray revealed possible venous congestion I suspect changes are likely related to pneumonia given leukocytosis and a normal BNP of 2:15. Patient did have an echo done about a year ago which showed a 55% ejection fraction. Patient was bolused with 30 mL/kg of fluids. He is stable at this point however given lactic acid severe sepsis exam was performed. Dr. Choe spoke with Dr Isabel who recommends telemetry placement rather than ICU. - Lab Data Result diagrams: 07/26/19 15:46 07/26/19 15:46 Lab Results 07/26/19 07/26/19 07/26/19 Range/Units 14:27 15:46 15:46 WBC 21.5 H (3.8-10.6) k/uL RBC 3.70 L (4.30-5.90) m/uL Hgb 12.7 L (13.0-17.5) gm/dL Hct 38.4 L (39.0-53.0) % MCV 103.8 H (80.0-100.0) fL MCH 34.2 (25.0-35.0) pg MCHC 33.0 (31.0-37.0) g/dL RDW 13.2 (11.5-15.5) % Plt Count 370 (150-450) k/uL Neutrophils % 93 % Lymphocytes % 4 % Monocytes % 2 % Eosinophils % 0 % Basophils % 0 % Neutrophils # 19.9 H (1.3-7.7) k/uL Lymphocytes # 0.9 L (1.0-4.8) k/uL Monocytes # 0.4 (0-1.0) k/uL Eosinophils # 0.1 (0-0.7) k/uL Basophils # 0.1 (0-0.2) k/uL Hypochromasia Slight Macrocytosis Slight Sodium 144 (137-145) mmol/L Potassium 4.2 (3.5-5.1) mmol/L Chloride 106 (98-107) mmol/L Carbon Dioxide 21 L (22-30) mmol/L Anion Gap 17 mmol/L BUN 20 (9-20) mg/dL Creatinine 2.18 H (0.66-1.25) mg/dL Est GFR (CKD-EPI)AfAm 39 (>60 ml/min/1.73 sqM) Est GFR (CKD-EPI)NonAf 34 (>60 ml/min/1.73 sqM) Glucose 138 H (74-99) mg/dL Plasma Lactic Acid Maurisio (0.7-2.0) mmol/L Calcium 9.3 (8.4-10.2) mg/dL Total Bilirubin 1.0 (0.2-1.3) mg/dL AST 33 (17-59) U/L ALT 17 (4-49) U/L Alkaline Phosphatase 104 (38-126) U/L Troponin I (0.000-0.034) ng/mL NT-Pro-B Natriuret Pep pg/mL Total Protein 7.8 (6.3-8.2) g/dL Albumin 3.9 (3.5-5.0) g/dL Influenza Type A RNA Not Detected (Not Detectd) Influenza Type B (PCR) Not Detected (Not Detectd) 07/26/19 07/26/19 07/26/19 Range/Units 15:46 15:46 15:46 WBC (3.8-10.6) k/uL RBC (4.30-5.90) m/uL Hgb (13.0-17.5) gm/dL Hct (39.0-53.0) % MCV (80.0-100.0) fL MCH (25.0-35.0) pg MCHC (31.0-37.0) g/dL RDW (11.5-15.5) % Plt Count (150-450) k/uL Neutrophils % % Lymphocytes % % Monocytes % % Eosinophils % % Basophils % % Neutrophils # (1.3-7.7) k/uL Lymphocytes # (1.0-4.8) k/uL Monocytes # (0-1.0) k/uL Eosinophils # (0-0.7) k/uL Basophils # (0-0.2) k/uL Hypochromasia Macrocytosis Sodium (137-145) mmol/L Potassium (3.5-5.1) mmol/L Chloride (98-107) mmol/L Carbon Dioxide (22-30) mmol/L Anion Gap mmol/L BUN (9-20) mg/dL Creatinine (0.66-1.25) mg/dL Est GFR (CKD-EPI)AfAm (>60 ml/min/1.73 sqM) Est GFR (CKD-EPI)NonAf (>60 ml/min/1.73 sqM) Glucose (74-99) mg/dL Plasma Lactic Acid Maurisio 7.4 H* (0.7-2.0) mmol/L Calcium (8.4-10.2) mg/dL Total Bilirubin (0.2-1.3) mg/dL AST (17-59) U/L ALT (4-49) U/L Alkaline Phosphatase (38-126) U/L Troponin I <0.012 (0.000-0.034) ng/mL NT-Pro-B Natriuret Pep 215 pg/mL Total Protein (6.3-8.2) g/dL Albumin (3.5-5.0) g/dL Influenza Type A RNA (Not Detectd) Influenza Type B (PCR) (Not Detectd) Disposition Clinical Impression: Pneumonia, Leukocytosis, CKD (chronic kidney disease) Disposition: ADMITTED IP TO THIS HOSP Condition: Fair Is patient prescribed a controlled substance at d/c from ED?: No Referrals: Joni Reina DO [Primary Care Provider] - 1-2 days Time of Disposition: 18:23
--- NOTE | 2019-07-26 15:00 | XR ---
EXAMINATION TYPE: XR chest 1V DATE OF EXAM: 07/26/2019 COMPARISON: Prior chest x-ray 06/03/2000 HISTORY: Cough TECHNIQUE: Single frontal view of the chest is obtained. FINDINGS: Patient is rotated. Exam is expiratory. Patchy basilar density is noted. No evident pneumo thorax or pleural effusion. Heart size within normal limits. Interstitium is increased. Perihilar vas cular indistinctness noted. IMPRESSION: There may be a component of volume overload, pulmonary venous hypertension and interstit ial edema. Correlate to exclude basilar pneumonia versus subsegmental atelectatic changes. Follow-up is recommended.
[2019-07-26 16:08] LABS: Basophils # (A) 0.1 k/uL (0-0.2); Basophils % (A) 0 %; Eosinophils # (A) 0.1 k/uL (0-0.7); Eosinophils % (A) 0 %; HCT 38.4 % (39.0-53.0); HGB 12.7 gm/dL (13.0-17.5); Hypochromasia Slight; Lymphocytes # (A) 0.9 k/uL (1.0-4.8); Lymphocytes % (A) 4 %; MCH 34.2 pg (25.0-35.0); MCV 103.8 fL (80.0-100.0); Macrocytosis Slight; Mean Platelet Volume 8.3; Monocytes # (A) 0.4 k/uL (0-1.0); Monocytes % (A) 2 %; Neutrophils # (A) 19.9 k/uL (1.3-7.7); Neutrophils % (A) 93 %; Platelet Count 370 k/uL (150-450); RDW 13.2 % (11.5-15.5); WBC 21.5 k/uL (3.8-10.6)
[2019-07-26] MEDS ORDERED: AZITHROMYCIN 500 MG in SODIUM CHLORIDE 0.9% 250 ML IVPB STA (16:12)
[2019-07-26] MEDS ORDERED: cefTRIAXone IN SWFI 1,000 MG/10 ML SYRINGE IVP STA (16:12)
[2019-07-26] MEDS ORDERED: SODIUM CHLORIDE 0.9% 500 ML 500 ML IV STA (16:17)
[2019-07-26 16:22] LABS: Albumin 3.9 g/dL (3.5-5.0); Calcium 9.3 mg/dL (8.4-10.2); Potassium 4.2 mmol/L (3.5-5.1); Total Protein 7.8 g/dL (6.3-8.2)
[2019-07-26] MEDS ORDERED: SODIUM CHLORIDE 0.9% 1,000 ML IV STA (17:04)
[2019-07-26] MEDS ORDERED: ACETAMINOPHEN TAB 500 MG TAB PO STA ×2 (17:57→19:06)
[2019-07-26] MEDS ORDERED: NALOXONE 0.4 MG/ML 1 ML VIAL IV PRN (18:18)
[2019-07-26] MEDS ORDERED: ACETAMINOPHEN TAB 325 MG TAB PO PRN (18:18)
[2019-07-26] MEDS: SODIUM CHLORIDE 0.9% 1,000 ML IV SCH (19:14)
[2019-07-27] MEDS ORDERED: AZITHROMYCIN 500 MG in SODIUM CHLORIDE 0.9% 250 ML IVPB SCH ×2 (09:00→16:00)
[2019-07-27] MEDS ORDERED: guaiFENesin 600 MG TABLET.ER PO PRN (09:49)
--- NOTE | 2019-07-27 10:07 | P.HPIM ---
History of Present Illness This is a pleasant 48 years old male with past medical history of Down syndrome, autism, cardiac cushion defect, gouty arthritis, psoriasis. Patient is nonverbal at baseline, his from adult foster home, he has his sister Mrs. Penaloza as his guardian. As per sister patient has been called by the staff that he has been having cold that is slowly progressive and he has struggled with breathing over the last few days. Also he has decreased appetite. He was not sure if he has been vomiting, although she says that he has history of overt eating and vomiting before. Denies history of seizure Vitas looks stable. He is saturating 92% on room air. Lap showing leukocytosis of 20 1.5K. Hemoglobin of 12.7. Lactic acid was elevated at 7.4, came back to 0.7 which is within normal limits this morning. His creatinine was 2.1 yes terday, baseline is 1.9-2.4. Liver enzymes aren't elevated. Chest x-ray: Bilateral pneumonia versus pulmonary congestion. ProBNP is 215. Influenza is negative On admission he was started on Rocephin, Zithromax, he was given the current half of normal saline, and started on 100 mL per hour Review of Systems n/a Past Medical History Past Medical History: Skin Disorder Additional Past Medical History / Comment(s): Down syndrom and autism, kidney issues, cardiac cushion defects, gout arthritis and psoriasis pnuemonia years ago with pneumothorax. History of Any Multi-Drug Resistant Organisms: None Reported Past Surgical History: No Surgical Hx Reported, Unable to Obtain Past Anesthesia/Blood Transfusion Reactions: Unable to Obtain Past Psychological History: No Psychological Hx Reported, Unable to Obtain Smoking Status: Never smoker Past Alcohol Use History: None Reported Past Drug Use History: None Reported - Past Family History Sister(s) Family Medical History: Hypertension Father Family Medical History: CVA/TIA Additional Family Medical History / Comment(s): Parkinsons Medications and Allergies Home Medications Medication Instructions Recorded Confirmed Type Allopurinol [Zyloprim] 100 mg PO DAILY@0700 06/01/18 07/26/19 History Ferrous Sulfate [Iron (65 MG 325 mg PO BID@0700,2100 06/01/18 07/26/19 History Elemental)] hydrOXYzine HCL [Atarax] 25 mg PO HS@209906/01/18 07/26/19 History Acetaminophen Tab [Tylenol Tab] 650 mg PO Q6H PRN 07/26/19 07/26/19 History Cephalexin [Keflex] 500 mg PO TID 07/26/19 07/26/19 History Cholecalciferol (Vitamin D3) 2,000 unit PO DAILY@0700 07/26/19 07/26/19 History [Vitamin D3] QUEtiapine [SEROquel] 50 mg PO HS@2100 07/26/19 07/26/19 History guaiFENesin [Mucinex] 600 mg PO BID PRN 07/26/19 07/26/19 History Allergies Allergy/AdvReac Type Severity Reaction Status Date / Time amoxicillin AdvReac Unknown Verified 07/26/19 20:45 Physical Exam Vitals: Vital Signs Temp Pulse Pulse Resp BP BP Pulse Ox 07/27/19 07:49 97.3 F L 59 L 18 123/70 95 07/27/19 04:07 97.9 F 70 18 123/76 94 L 07/27/19 00:00 98.6 F 102 H 18 106/78 93 L 07/26/19 20:53 101.7 F H 116 H 18 115/52 92 L 07/26/19 19:16 66 16 126/73 07/26/19 13:34 98.1 F 73 19 142/71 93 L Intake and Output 07/26/19 07/27/19 07/27/19 22:59 06:59 14:59 Other: # Voids 2 Weight 49.487 kg -GENERAL: The patient is alert , patient smiling, not in any acute distress. Obese HEENT: Pupils are round and equally reacting to light. EOMI. No scleral icterus. No conjunctival pallor. Normocephalic, atraumatic. No pharyngeal erythema. No thyromegaly. CARDIOVASCULAR: S1 and S2 present. No murmurs, rubs, or gallops. -PULMONARY: Chest is clear to auscultation, no wheezing or crackles. Harsh sounds bilaterally ABDOMEN: Soft, nontender, nondistended, normoactive bowel sounds. No palpable organomegaly. MUSCULOSKELETAL: No joint swelling or deformity. EXTREMITIES: No cyanosis, clubbing, or pedal edema. NEUROLOGICAL: Gross neurological examination did not reveal any focal deficits. SKIN: No rashes. No petechiae Results CBC & Chem 7: 07/26/19 15:46 07/26/19 15:46 Labs: Abnormal Lab Results - Last 24 Hours (Table) 07/26/19 07/26/19 07/26/19 Range/Units 15:46 15:46 15:46 WBC 21.5 H (3.8-10.6) k/uL RBC 3.70 L (4.30-5.90) m/uL Hgb 12.7 L (13.0-17.5) gm/dL Hct 38.4 L (39.0-53.0) % MCV 103.8 H (80.0-100.0) fL Neutrophils # 19.9 H (1.3-7.7) k/uL Lymphocytes # 0.9 L (1.0-4.8) k/uL Carbon Dioxide 21 L (22-30) mmol/L Creatinine 2.18 H (0.66-1.25) mg/dL Glucose 138 H (74-99) mg/dL Plasma Lactic Acid Maurisio 7.4 H* (0.7-2.0) mmol/L 07/26/19 Range/Units 19:59 WBC (3.8-10.6) k/uL RBC (4.30-5.90) m/uL Hgb (13.0-17.5) gm/dL Hct (39.0-53.0) % MCV (80.0-100.0) fL Neutrophils # (1.3-7.7) k/uL Lymphocytes # (1.0-4.8) k/uL Carbon Dioxide (22-30) mmol/L Creatinine (0.66-1.25) mg/dL Glucose (74-99) mg/dL Plasma Lactic Acid Maurisio 2.3 H* (0.7-2.0) mmol/L Thrombosis Risk Factor Assmnt - Choose All That Apply Any of the Below Risk Factors Present?: Yes Each Factor Represents 1 point: Age 41-60 years, Medical pt on bed rest Thrombosis Risk Factor Assessment Total Risk Factor Score: 2 Thrombosis Risk Factor Assessment Level: Low Risk Assessment and Plan Assessment: Bilateral pneumonia rather than CHF. Height lactic acid, came back to normal Dehydration, improving Down syndrome History of autism Cardiac cushion defect History of Gouty arthritis Psoriasis Plan: This is a pleasant 48 years old male who presents mostly with aspiration pneumonia, rule out aspiration. We'll check a swallow evaluation. Call pulmonary consult, a sputum for culture and sensitivity. Change antibiotics to Zosyn, decreased to 50 mL per hour. Follow-up culture results and WBC count. Labs and medication were reviewed.. Continue same treatment. Continue with symptomatic treatment. Resume home medication. Monitor lytes and vitals. DVT and GI prophylaxis. Further recommendations of the clinical course of the patie nt DVT prophylaxis: Subcutaneous heparin GI Prophylaxis: Pepcid PT/OT: Pending Prognosis is guarded
[2019-07-27] MEDS ORDERED: PIPERACILLIN-TAZOBACTAM 3.375 GM in SODIUM CHLORIDE 0.9% 100 ML IVPB SCH ×2 (10:15→14:00)
[2019-07-27] MEDS ORDERED: FAMOTIDINE 20 MG/2 ML VIAL IV SCH (12:00)
--- NOTE | 2019-07-27 14:24 | P.CNPUL ---
History of Present Illness Consult date: 07/27/19 Requesting physician: Chance Albrecht Reason for consult: abnormal CXR/CT (Right lower lobe infiltrate/atelectasis) Chief complaint: Cough, congestion History of present illness: This is a pleasant 48-year-old gentleman who has Down syndrome as well as a form of autism, gout, psoriasis, congenital cardiac defects. He has resided in a foster [facility] since he was 6 years old. He is nonverbal. His sister who is his guardian is present at the bedside and supplies most of the information. They found him to have increasing cough congestion weakness less interactive than usual the last several days. He was brought into the emergency room and was found to have a mild right lower lobe infiltrate. She states he eats well he does need to be fed but does not choke on food or drinks. No previous history of aspiration. He is seen today in consultation on the regular medical floor. He is maintaining O2 saturations in the mid 90s on room air. He's been afebrile. Hemodynamically stable. White count 21.5. Hemoglobin 12.7. Creatinine 2.18. Lactic acid 7.4 currently 0.7. He is currently on Zosyn. His sister states he is more interactive today compared to yesterday. Review of Systems ROS unobtainable: due to mental status Past Medical History Past Medical History: Skin Disorder Additional Past Medical History / Comment(s): Down syndrom and autism, kidney issues, cardiac cushion defects, gout arthritis and psoriasis pnuemonia years ago with pneumothorax. History of Any Multi-Drug Resistant Organisms: None Reported Past Surgical History: No Surgical Hx Reported, Unable to Obtain Past Anesthesia/Blood Transfusion Reactions: Unable to Obtain Past Psychological History: No Psychological Hx Reported, Unable to Obtain Smoking Status: Never smoker Past Alcohol Use History: None Reported Past Drug Use History: None Reported - Past Family History Sister(s) Family Medical History: Hypertension Father Family Medical History: CVA/TIA Additional Family Medical History / Comment(s): Parkinsons Medications and Allergies Home Medications Medication Instructions Recorded Confirmed Type Allopurinol [Zyloprim] 100 mg PO DAILY@0700 06/01/18 07/26/19 History Ferrous Sulfate [Iron (65 MG 325 mg PO BID@0700,2100 06/01/18 07/26/19 History Elemental)] hydrOXYzine HCL [Atarax] 25 mg PO HS@2100 06/01/18 07/26/19 History Acetaminophen Tab [Tylenol Tab] 650 mg PO Q6H PRN 07/26/19 07/26/19 History Cephalexin [Keflex] 500 mg PO TID 07/26/19 07/26/19 History Cholecalciferol (Vitamin D3) 2,000 unit PO DAILY@0700 07/26/19 07/26/19 History [Vitamin D3] QUEtiapine [SEROquel] 50 mg PO HS@2100 07/26/19 07/26/19 History guaiFENesin [Mucinex] 600 mg PO BID PRN 07/26/19 07/26/19 History Allergies Allergy/AdvReac Type Severity Reaction Status Date / Time amoxicillin AdvReac Unknown Verified 07/26/19 20:45 Physical Exam Vitals: Vital Signs Temp Pulse Pulse Resp BP BP Pulse Ox 07/27/19 12:31 81 20 105/60 97 07/27/19 08:00 18 07/27/19 07:49 97.3 F L 59 L 18 123/70 95 07/27/19 04:07 97.9 F 70 18 123/76 94 L 07/27/19 00:00 98.6 F 102 H 18 106/78 93 L 07/26/19 20:53 101.7 F H 116 H 18 115/52 92 L 07/26/19 19:16 66 16 126/73 Intake and Output 07/26/19 07/27/19 07/27/19 22:59 06:59 14:59 Other: # Voids 2 Weight 49.487 kg GENERAL EXAM: 48-year-old gentleman with clinical features of Down syndrome. Alert, smiling, on room air, comfortable in no apparent distress. HEAD: Normocephalic. EYES: Normal reaction of pupils, equal size. NOSE: Clear with pink turbinates. THROAT: No erythema or exudates. NECK: No masses, no JVD. CHEST: No chest wall deformity. LUNGS: Equal air entry with bilateral scattered rhonchi more so on the right lung CVS: S1 and S2 normal with no audible murmur, regular rhythm. ABDOMEN: No hepatosplenomegaly, normal bowel sounds, no guarding or rigidity. SPINE: No scoliosis or deformity SKIN: No rashes CENTRAL NERVOUS SYSTEM: No focal deficits, tone is normal in all 4 extremities. EXTREMITIES: There is no peripheral edema. No clubbing, no cyanosis. Peripheral pulses are intact. Results - Laboratory Findings CBC and BMP: 07/26/19 15:46 07/26/19 15:46 Abnormal lab findings: Abnormal Labs 07/26/19 07/26/19 07/26/19 15:46 15:46 15:46 WBC 21.5 H RBC 3.70 L Hgb 12.7 L Hct 38.4 L MCV 103.8 H Neutrophils # 19.9 H Lymphocytes # 0.9 L Carbon Dioxide 21 L Creatinine 2.18 H Glucose 138 H Plasma Lactic Acid Maurisio 7.4 H* 07/26/19 19:59 WBC RBC Hgb Hct MCV Neutrophils # Lymphocytes # Carbon Dioxide Creatinine Glucose Plasma Lactic Acid Maurisio 2.3 H* - Diagnostic Findings Chest x-ray: image reviewed Assessment and Plan Assessment: 1 Acute right lower lobe pneumonia, community-acquired however the patient does live in foster care setting. 2 Leukocytosis secondary to above. 3 Febrile illness secondary to above, recovered 4 Lactic acidosis secondary to above, recovered 5 Down syndrome 6 Autism 7 History of cardiac congenital abnormality 8 Gout 9 Psoriasis. Plan: The patient was seen and evaluated by Dr. Isabel. Chest x-ray and labs reviewed. We'll continue with Radha for now. Currently on room air. Repeat labs in a.m. We'll continue to follow. I, the cosigning physician, performed a history & physical examination of the patient. Lungs sounds with scattered rhonchi more so on the right. Maintaining good O2 saturations in the 90s on room air. I discussed the assessment and plan of care with my nurse practitioner, Marycarmen Bartlett. I attest to the above consultation as dictated by her. Time with Patient: Greater than 30
[2019-07-27] MEDS: SODIUM CHLORIDE 0.9% 1,000 ML IV SCH ×2 (17:20→18:40)
[2019-07-27] MEDS: FERROUS SULFATE 325 MG TAB PO SCH (20:30)
[2019-07-27] MEDS: hydrOXYzine HCL 25 MG TAB PO SCH (20:31)
[2019-07-27] MEDS: QUEtiapine 50 MG TAB PO SCH (20:32)
[2019-07-27] MEDS: HEPARIN SODIUM,PORCINE 5,000 UNIT/ML 1 ML VIAL SQ SCH (20:32)
[2019-07-27] MEDS: PIPERACILLIN-TAZOBACTAM 3.375 GM in SODIUM CHLORIDE 0.9% 100 ML IVPB SCH (23:55)
[2019-07-28 07:44] LABS: Basophils # (A) 0.1 k/uL (0-0.2); Basophils % (A) 1 %; Eosinophils % (A) 0 %; HCT 33.5 % (39.0-53.0); HGB 10.6 gm/dL (13.0-17.5); Hypochromasia Slight; Lymphocytes # (A) 1.2 k/uL (1.0-4.8); Lymphocytes % (A) 16 %; MCH 33.2 pg (25.0-35.0); MCHC 31.7 g/dL (31.0-37.0); MCV 104.4 fL (80.0-100.0); Macrocytosis Slight; Mean Platelet Volume 8.3; Monocytes # (A) 0.4 k/uL (0-1.0); Monocytes % (A) 6 %; Neutrophils % (A) 76 %; Platelet Count 280 k/uL (150-450); RBC 3.21 m/uL (4.30-5.90); RDW 13.4 % (11.5-15.5); WBC 7.9 k/uL (3.8-10.6)
[2019-07-28 07:57] LABS: Calcium 7.8 mg/dL (8.4-10.2); Potassium 4.1 mmol/L (3.5-5.1)
[2019-07-28] MEDS: PIPERACILLIN-TAZOBACTAM 3.375 GM in SODIUM CHLORIDE 0.9% 100 ML IVPB SCH ×3 (08:13→23:45)
[2019-07-28] MEDS: FERROUS SULFATE 325 MG TAB PO SCH ×2 (08:15→20:32)
[2019-07-28] MEDS: ALLOPURINOL 100 MG TAB PO SCH (08:15)
[2019-07-28] MEDS: CHOLECALCIFEROL 1,000 UNIT TAB PO SCH (08:15)
[2019-07-28] MEDS: FAMOTIDINE 20 MG TAB PO SCH (08:15)
[2019-07-28] MEDS: HEPARIN SODIUM,PORCINE 5,000 UNIT/ML 1 ML VIAL SQ SCH ×2 (08:15→20:32)
--- NOTE | 2019-07-28 09:32 | P.PN ---
Subjective This is a pleasant 48 years old male with past medical history of Down syndrome, autism, cardiac cushion defect, gouty arthritis, psoriasis. Patient is nonverbal at baseline, his from adult foster home, he has his sister Mrs. Penaloza as his guardian. As per sister patient has been called by the staff that he has been having cold that is slowly progressive and he has struggled with breathing over the last few days. Also he has decreased appetite. He was not sure if he has been vomiting, although she says that he has history of overt eating and vomiting before. Denies history of seizure Vitas looks stable. He is saturating 92% on room air. Lap showing leukocytosis of 20 1.5K. Hemoglobin of 12.7. Lactic acid was elevated at 7.4, came back to 0.7 which is within normal limits this morning. His creatinine was 2.1 yesterday, baseline is 1.9-2.4. Liver enzymes aren't elevated. Chest x-ray: Bilateral pneumonia versus pulmonary congestion. ProBNP is 215. Influenza is negative On admission he was started on Rocephin, Zithromax, he was given the current half of normal saline, and started on 100 mL per hour 07/28/2019 Patient still sleeping most of the time. No more fevers since admission. Vitals are stable. WBC came back to normal at 7.9. Lactic acid, 0.7. Influenza is negative. Patient remains on Zosyn. Evaluation was done yesterday showing no evidence of aspiration however in view of his impulsive behavior and history of excessive eating and recommended regular diet/thin liquids restrict one-to-one supervision . at baseline and he can walk with the help. We'll ask for physical therapy evaluation Objective - Vital Signs Vital signs: Vital Signs Temp 97.6 F 07/28/19 05:39 Pulse 88 07/28/19 05:39 Resp 16 07/28/19 05:39 BP 101/67 07/28/19 05:39 Pulse Ox 94 L 07/28/19 05:39 Intake & Output 07/27/19 07/28/19 07/28/19 18:59 06:59 18:59 Intake Total 350 600 Balance 350 600 Intake: Intake, IV Titration 100 600 Amount Piperacillin-Tazobactam 3 100 100 .375 gm In Sodium Chloride 0.9% 100 ml @ 25 mls/hr IVPB Q8H [facility] Rx#: [id number] Piperacillin-Tazobactam 3 100 .375 gm In Sodium Chloride 0.9% 100 ml @ 25 mls/hr IVPB Q8HR [facility] Rx# :[id number] Sodium Chloride 0.9% 1, 400 000 ml @ 50 mls/hr IV . Q20H [facility] Rx#:[id number] Oral 250 Other: Voiding Method Diaper # Voids 2 1 # Bowel Movements 1 - Exam -GENERAL: The patient is alert , patient smiling, not in any acute distress. Obese HEENT: Pupils are round and equally reacting to light. EOMI. No scleral icterus. No conjunctival pallor. Normocephalic, atraumatic. No pharyngeal erythema. No thyromegaly. CARDIOVASCULAR: S1 and S2 present. No murmurs, rubs, or gallops. -PULMONARY: Chest is clear to auscultation, no wheezing or crackles. Harsh sounds bilaterally ABDOMEN: Soft, nontender, nondistended, normoactive bowel sounds. No palpable organomegaly. MUSCULOSKELETAL: No joint swelling or deformity. EXTREMITIES: No cyanosis, clubbing, or pedal edema. NEUROLOGICAL: Gross neurological examination did not reveal any focal deficits. SKIN: No rashes. No petechiae - Labs CBC & Chem 7: 07/28/19 07:10 07/28/19 07:10 Labs: Abnormal Lab Results - Last 24 Hours (Table) 07/28/19 07/28/19 Range/Units 07:10 07:10 RBC 3.21 L (4.30-5.90) m/uL Hgb 10.6 L (13.0-17.5) gm/dL Hct 33.5 L (39.0-53.0) % MCV 104.4 H (80.0-100.0) fL Chloride 115 H (98-107) mmol/L Creatinine 1.98 H (0.66-1.25) mg/dL Glucose 113 H (74-99) mg/dL Calcium 7.8 L (8.4-10.2) mg/dL Microbiology - Last 24 Hours (Table) 07/26/19 15:46 Blood Culture - Preliminary Blood No Growth after 24 hours Assessment and Plan Assessment: Right lower lobe pneumonia, community acquired versus aspiration pneumonia. No evidence of aspiration Heigh lactic acid, came back to normal Dehydration, improving Down syndrome History of autism Cardiac cushion defect History of Gouty arthritis Psoriasis Plan: This is a pleasant 48 years old male who presents mostly with aspiration pneumonia, rule out aspiration. We'll check a swallow evaluation. Call pulmonary consult, a sputum for culture and sensitivity. Change antibiotics to Zosyn, decreased to 50 mL per hour. Follow-up culture results and WBC count. Labs and medication were reviewed.. Continue same treatment. Continue with symptomatic treatment. Resume home medication. Monitor lytes and vitals. DVT and GI prophylaxis. Further recommendations of the clinical course of the patient DVT prophylaxis: Subcutaneous heparin GI Prophylaxis: Pepcid PT/OT: Pending Prognosis is guarded
[2019-07-28] MEDS: SODIUM CHLORIDE 0.9% 1,000 ML IV SCH (12:20)
--- NOTE | 2019-07-28 13:01 | P.PN ---
Subjective Progress Note Date: 07/28/19 Principal diagnosis: Acute right lower lobe pneumonia This is a pleasant 48-year-old gentleman who has Down syndrome as well as a form of autism, gout, psoriasis, congenital cardiac defects. He has resided in a foster fpc since he was 6 years old. He is nonverbal. His sister who is his guardian is present at the bedside and supplies most of the information. They found him to have increasing cough congestion weakness less interactive than usual the last several days. He was brought into the emergency room and was found to have a mild right lower lobe infiltrate. She states he eats well he does need to be fed but does not choke on food or drinks. No previous h istory of aspiration. He is seen today in consultation on the regular medical floor. He is maintaining O2 saturations in the mid 90s on room air. He's been afebrile. Hemodynamically stable. White count 21.5. Hemoglobin 12.7. Creatinine 2.18. Lactic acid 7.4 currently 0.7. He is currently on Zosyn. His sister states he is more interactive today compared to yesterday. The patient is seen today 12/27/2019 in follow-up on the regular medical floor. He is currently resting comfortably in bed. Awake and alert in no acute distress. Maintaining O2 saturation in the 90s on room air. He's afebrile. Hemodynamically stable. Blood cultures reveal no growth. White count 7.9. Hemoglobin 10.6. Creatinine is 1.98. Remains on Zosyn. Objective - Vital Signs Vital signs: Vital Signs Temp 97.6 F 07/28/19 05:39 Pulse 88 07/28/19 08:00 Resp 16 07/28/19 08:00 BP 101/67 07/28/19 05:39 Pulse Ox 94 L 07/28/19 05:39 Intake & Output 07/27/19 07/28/19 07/28/19 18:59 06:59 18:59 Intake Total 350 600 Balance 350 600 Intake: Intake, IV Titration 100 600 Amount Piperacillin-Tazobactam 3 100 100 .375 gm In Sodium Chloride 0.9% 100 ml @ 25 mls/hr IVPB Q8H [facility] Rx#: [id number] Piperacillin-Tazobactam 3 100 .375 gm In Sodium Chloride 0.9% 100 ml @ 25 mls/hr IVPB Q8HR [facility] Rx# :[id number] Sodium Chloride 0.9% 1, 400 000 ml @ 50 mls/hr IV . Q20H [facility] Rx#:[id number] Oral 250 Other: Voiding Method Diaper Diaper # Voids 2 1 # Bowel Movements 1 - Exam GENERAL EXAM: Pleasant 48-year-old gentleman with clinical features of Down syndrome. Alert, smiling, on room air, comfortable in no apparent distress. HEAD: Normocephalic. EYES: Normal reaction of pupils, equal size. NOSE: Clear with pink turbinates. THROAT: No erythema or exudates. NECK: No masses, no JVD. CHEST: No chest wall deformity. LUNGS: Equal air entry with bilateral scattered rhonchi more so on the right lung CVS: S1 and S2 normal with no audible murmur, regular rhythm. ABDOMEN: No hepatosplenomegaly, normal bowel sounds, no guarding or rigidity. SPINE: No scoliosis or deformity SKIN: No rashes CENTRAL NERVOUS SYSTEM: No focal deficits, tone is normal in all 4 extremities. EXTREMITIES: There is no peripheral edema. No clubbing, no cyanosis. Perip heral pulses are intact. - Labs CBC & Chem 7: 07/28/19 07:10 07/28/19 07:10 Labs: Abnormal Lab Results - Last 24 Hours (Table) 07/28/19 07/28/19 Range/Units 07:10 07:10 RBC 3.21 L (4.30-5.90) m/uL Hgb 10.6 L (13.0-17.5) gm/dL Hct 33.5 L (39.0-53.0) % MCV 104.4 H (80.0-100.0) fL Chloride 115 H (98-107) mmol/L Creatinine 1.98 H (0.66-1.25) mg/dL Glucose 113 H (74-99) mg/dL Calcium 7.8 L (8.4-10.2) mg/dL Microbiology - Last 24 Hours (Table) 07/26/19 15:46 Blood Culture - Preliminary Blood No Growth after 24 hours Assessment and Plan Assessment: 1 Acute right lower lobe pneumonia, community-acquired however the patient does live in foster care setting. 2 Leukocytosis secondary to above. 3 Febrile illness secondary to above, recovered 4 Lactic acidosis secondary to above, recovered 5 Down syndrome 6 Autism 7 History of cardiac congenital abnormality 8 Gout 9 Psoriasis. Plan: The patient was seen and evaluated by Dr. Isabel. We'll continue with Radha for now. We will repeat a chest x-ray in the a.m. Probable discharge in the a.m. We'll continue to follow. I, the cosigning physician, performed a history & physical examination of the patient. Lungs sounds with scattered rhonchi more so on the right. Maintaining good O2 saturations in the 90s on room air. I discussed the assessment and plan of care with my nurse practitioner, Marycarmen Bartlett. I attest to the above consultation as dictated by her.
[2019-07-28] MEDS: hydrOXYzine HCL 25 MG TAB PO SCH (20:31)
[2019-07-28] MEDS: QUEtiapine 50 MG TAB PO SCH (20:32)
--- NOTE | 2019-07-29 06:38 | XR ---
EXAMINATION TYPE: XR chest 1V portable DATE OF EXAM: 07/29/2019 HISTORY: F/U pneumonia. REFERENCE: Previous study dated 07/26/2019. FINDINGS: The lungs are overinflated. The heart is enlarged. There is bibasilar airspace disease eith er representing atelectasis or pneumonia. There are small, bilateral effusions. IMPRESSION: 1. COPD. 2. CARDIOMEGALY. 3. BIBASILAR AIRSPACE DISEASE. 4. SMALL, BILATERAL EFFUSIONS.
[2019-07-29] MEDS: CHOLECALCIFEROL 1,000 UNIT TAB PO SCH (07:18)
[2019-07-29] MEDS: ALLOPURINOL 100 MG TAB PO SCH (07:18)
[2019-07-29] MEDS: HEPARIN SODIUM,PORCINE 5,000 UNIT/ML 1 ML VIAL SQ SCH ×2 (07:18→21:31)
[2019-07-29] MEDS: FAMOTIDINE 20 MG TAB PO SCH (07:18)
[2019-07-29] MEDS: PIPERACILLIN-TAZOBACTAM 3.375 GM in SODIUM CHLORIDE 0.9% 100 ML IVPB SCH ×3 (07:18→23:22)
[2019-07-29] MEDS: FERROUS SULFATE 325 MG TAB PO SCH ×2 (07:18→21:29)
[2019-07-29] MEDS: SODIUM CHLORIDE 0.9% 1,000 ML IV SCH (07:20)
[2019-07-29 07:29] LABS: Basophils % (A) 1 %; Eosinophils # (A) 0.1 k/uL (0-0.7); Eosinophils % (A) 2 %; HCT 36.1 % (39.0-53.0); HGB 11.4 gm/dL (13.0-17.5); Hypochromasia Slight; Lymphocytes # (A) 1.1 k/uL (1.0-4.8); Lymphocytes % (A) 28 %; MCHC 31.5 g/dL (31.0-37.0); MCV 104.8 fL (80.0-100.0); Macrocytosis Slight; Mean Platelet Volume 8.3; Monocytes # (A) 0.2 k/uL (0-1.0); Monocytes % (A) 6 %; Neutrophils # (A) 2.4 k/uL (1.3-7.7); Neutrophils % (A) 60 %; Platelet Count 293 k/uL (150-450); RBC 3.44 m/uL (4.30-5.90); RDW 13.5 % (11.5-15.5)
--- NOTE | 2019-07-29 09:50 | P.PN ---
Subjective This is a pleasant 48 years old male with past medical history of Down syndrome, autism, cardiac cushion defect, gouty arthritis, psoriasis. Patient is nonverbal at baseline, his from adult foster home, he has his sister Mrs. Penaloza as his guardian. As per sister patient has been called by the staff that he has been having cold that is slowly progressive and he has struggled with breathing over the last few days. Also he has decreased appetite. He was not sure if he has been vomiting, although she says that he has history of overt eating and vomiting before. Denies history of seizure Vitas looks stable. He is saturating 92% on room air. Lap showing leukocytosis of 20 1.5K. Hemoglobin of 12.7. Lactic acid was elevated at 7.4, came back to 0.7 which is within normal limits this morning. His creatinine was 2.1 yesterday, baseline is 1.9-2.4. Liver enzymes aren't elevated. Chest x-ray: Bilateral pneumonia versus pulmonary congestion. ProBNP is 215. Influenza is negative On admission he was started on Rocephin, Zithromax, he was given the current half of normal saline, and started on 100 mL per hour 07/28/2019 Patient still sleeping most of the time. No more fevers since admission. Vitals are stable. WBC came back to normal at 7.9. Lactic acid, 0.7. Influenza is negative. Patient remains on Zosyn. Evaluation was done yesterday showing no evidence of aspiration however in view of his impulsive behavior and history of excessive eating and recommended regular diet/thin liquids restrict one-to-one supervision . at baseline and he can walk with the help. We'll ask for physical therapy evaluation Objective - Vital Signs Vital signs: Vital Signs Temp 98.4 F 07/29/19 05:00 Pulse 86 07/29/19 05:00 Resp 18 07/29/19 05:00 BP 137/69 07/29/19 05:00 Pulse Ox 98 07/29/19 05:00 Intake & Output 07/28/19 07/29/19 07/29/19 18:59 06:59 18:59 Intake Total 420 500 480 Balance 420 500 480 Intake: Intake, IV Titration 500 Amount Piperacillin-Tazobactam 3 100 .375 gm In Sodium Chloride 0.9% 100 ml @ 25 mls/hr IVPB Q8HR [facility] Rx# :[id number] Sodium Chloride 0.9% 1, 400 000 ml @ 50 mls/hr IV . Q20H [facility] Rx#:[id number] Oral 420 480 Other: Voiding Method Diaper Diaper # Voids 1 1 # Bowel Movements 1 - Exam -GENERAL: The patient is alert , patient smiling, not in any acute distress. Obese HEENT: Pupils are round and equally reacting to light. EOMI. No scleral icterus. No conjunctival pallor. Normocephalic, atraumatic. No pharyngeal erythema. No thyromegaly. CARDIOVASCULAR: S1 and S2 present. No murmurs, rubs, or gallops. -PULMONARY: Chest is clear to auscultation, no wheezing or crackles. Harsh sounds bilaterally ABDOMEN: Soft, nontender, nondistended, normoactive bowel sounds. No palpable organomegaly. MUSCULOSKELETAL: No joint swelling or deformity. EXTREMITIES: No cyanosis, clubbing, or pedal edema. NEUROLOGICAL: Gross neurological examination did not reveal any focal deficits. SKIN: No rashes. No petechiae - Labs CBC & Chem 7: 07/29/19 07:09 07/28/19 07:10 Labs: Abnormal Lab Results - Last 24 Hours (Table) 07/29/19 Range/Units 07:09 RBC 3.44 L (4.30-5.90) m/uL Hgb 11.4 L (13.0-17.5) gm/dL Hct 36.1 L (39.0-53.0) % MCV 104.8 H (80.0-100.0) fL Microbiology - Last 24 Hours (Table) 07/26/19 15:46 Blood Culture - Preliminary Blood No Growth after 48 hours Assessment and Plan Assessment: Right lower lobe pneumonia, community acquired versus aspiration pneumonia. No evidence of aspiration Heigh lactic acid, came back to normal Dehydration, improving Down syndrome History of autism Cardiac cushion defect History of Gouty arthritis Psoriasis Plan: This is a pleasant 48 years old male who presents mostly with aspiration pneumonia, rule out aspiration. Follow-up recommendation by pulmonary consult, a sputum for culture and sensitivity. Continue with Zosyn, decreased to 50 mL per hour. Blood culture showed no growth after 48 hours, final results pending Labs and medication were reviewed.. Continue same treatment. Continue with s ymptomatic treatment. Resume home medication. Monitor lytes and vitals. DVT and GI prophylaxis. Further recommendations of the clinical course of the patient DVT prophylaxis: Subcutaneous heparin GI Prophylaxis: Pepcid Prognosis is guarded
--- NOTE | 2019-07-29 12:42 | P.PN ---
Subjective Progress Note Date: 07/29/19 Principal diagnosis: Acute right lower lobe pneumonia This is a pleasant 48-year-old gentleman who has Down syndrome as well as a form of autism, gout, psoriasis, congenital cardiac defects. He has resided in a foster custodial since he was 6 years old. He is nonverbal. His sister who is his guardian is present at the bedside and supplies most of the information. They found him to have increasing cough congestion weakness less interactive than usual the last several days. He was brought into the emergency room and was found to have a mild right lower lobe infiltrate. She states he eats well he does need to be fed but does not choke on food or drinks. No previous h istory of aspiration. He is seen today in consultation on the regular medical floor. He is maintaining O2 saturations in the mid 90s on room air. He's been afebrile. Hemodynamically stable. White count 21.5. Hemoglobin 12.7. Creatinine 2.18. Lactic acid 7.4 currently 0.7. He is currently on Zosyn. His sister states he is more interactive today compared to yesterday. The patient is seen today 12/27/2019 in follow-up on the regular medical floor. He is currently resting comfortably in bed. Awake and alert in no acute distress. Maintaining O2 saturation in the 90s on room air. He's afebrile. Hemodynamically stable. Blood cultures reveal no growth. White count 7.9. Hemoglobin 10.6. Creatinine is 1.98. Remains on Zosyn. The patient is seen today 07/28/2019 in follow-up on the regular medical floor. He is currently sitting up in a chair. Awake. Appears in no acute distress. Maintaining O2 saturations in the 90s on room air. She's afebrile. Hemodynamically stable. Blood culture reveals no growth. White count 4.0. Hemoglobin 11.4. Continued on Zosyn. Objective - Vital Signs Vital signs: Vital Signs Temp 98.4 F 07/29/19 05:00 Pulse 65 07/29/19 08:00 Resp 18 07/29/19 08:00 BP 137/69 07/29/19 05:00 Pulse Ox 98 07/29/19 05:00 Intake & Output 01/25/20 01/26/20 01/26/20 18:59 06:59 18:59 Intake Total 420 500 480 Balance 420 500 480 Intake: Intake, IV Titration 500 Amount Piperacillin-Tazobactam 3 100 .375 gm In Sodium Chloride 0.9% 100 ml @ 25 mls/hr IVPB Q8HR [facility] Rx# :[id number] Sodium Chloride 0.9% 1, 400 000 ml @ 50 mls/hr IV . Q20H [facility] Rx#:[id number] Oral 420 480 Other: Voiding Method Diaper Diaper Diaper # Voids 1 1 # Bowel Movements 1 - Labs CBC & Chem 7: 07/29/19 07:09 07/28/19 07:10 Labs: Abnormal Lab Results - Last 24 Hours (Table) 07/29/19 Range/Units 07:09 RBC 3.44 L (4.30-5.90) m/uL Hgb 11.4 L (13.0-17.5) gm/dL Hct 36.1 L (39.0-53.0) % MCV 104.8 H (80.0-100.0) fL Microbiology - Last 24 Hours (Table) 07/26/19 15:46 Blood Culture - Preliminary Blood No Growth after 48 hours
[2019-07-29 13:49] VITALS: RESP 16
[2019-07-29 21:00] VITALS: TEMP 97.4
[2019-07-29] MEDS: hydrOXYzine HCL 25 MG TAB PO SCH (21:29)
[2019-07-29] MEDS: QUEtiapine 50 MG TAB PO SCH (21:29)
[2019-07-30] MEDS: SODIUM CHLORIDE 0.9% 1,000 ML IV SCH (03:18)
[2019-07-30 05:59] VITALS: BP 141/71; PULSE 77
[2019-07-30] MEDS: HEPARIN SODIUM,PORCINE 5,000 UNIT/ML 1 ML VIAL SQ SCH (08:05)
[2019-07-30] MEDS: PIPERACILLIN-TAZOBACTAM 3.375 GM in SODIUM CHLORIDE 0.9% 100 ML IVPB SCH (08:05)
[2019-07-30] MEDS: ALLOPURINOL 100 MG TAB PO SCH (08:05)
[2019-07-30] MEDS: CHOLECALCIFEROL 1,000 UNIT TAB PO SCH (08:05)
[2019-07-30] MEDS: FAMOTIDINE 20 MG TAB PO SCH (08:05)
[2019-07-30] MEDS: FERROUS SULFATE 325 MG TAB PO SCH (08:05)
[2019-07-30 08:29] LABS: Basophils # (A) 0.1 k/uL (0-0.2); Basophils % (A) 1 %; Eosinophils # (A) 0.1 k/uL (0-0.7); Eosinophils % (A) 3 %; HCT 34.8 % (39.0-53.0); HGB 11.2 gm/dL (13.0-17.5); Hypochromasia Slight; Lymphocytes # (A) 1.2 k/uL (1.0-4.8); Lymphocytes % (A) 24 %; MCH 32.8 pg (25.0-35.0); MCHC 32.1 g/dL (31.0-37.0); Macrocytosis Slight; Mean Platelet Volume 9.1; Monocytes # (A) 0.2 k/uL (0-1.0); Monocytes % (A) 5 %; Neutrophils # (A) 3.4 k/uL (1.3-7.7); Neutrophils % (A) 66 %; Platelet Count 313 k/uL (150-450); RBC 3.42 m/uL (4.30-5.90); RDW 13.6 % (11.5-15.5); WBC 5.1 k/uL (3.8-10.6)
[2019-07-30 08:39] LABS: Large Platelets Present
--- NOTE | 2019-07-30 11:24 | P.DS ---
Providers Date of admission: 07/26/19 17:49 Expected date of discharge: 07/30/19 Attending physician: Joni Reina Consults: 07/27/19 10:05 Consult Physician Urgent Consulting Provider: Cliff Isabel Reason/Comments: pna Do you want consulting provider notified?: Yes Primary care physician: Joni Reina Hospital Course: Right lower lobe pneumonia, community acquired. No evidence of aspiration Elevated lactic acid, secondary to the above, resolved Dehydration, improving Down syndrome History of autism Cardiac congenital defect History of Gouty arthritis Psoriasis Hospital course: This is a pleasant 48 years old male with past medical history of Down syndrome, autism, cardiac cushion defect, gouty arthritis, psoriasis. Patient is nonverbal at baseline, his from adult foster home, he has his sister Mrs. Penaloza as his guardian. As per sister patient has been called by the staff that he has been having cold that is slowly progressive and he has struggled with breathing over the last few days. Also he has decreased appetite. He was not sure if he has been vomiting, although she says that he has history of overt eating and vomiting before. Denies history of seizure Vitas looks stable. He is saturating 92% on room air. Lap showing leukocytosis of 20 1.5K. Hemoglobin of 12.7. Lactic acid was elevated at 7.4, came back to 0.7 which is within normal limits this morning. His creatinine was 2.1 yesterday, baseline is 1.9-2.4. Liver enzymes aren't elevated. Chest x-ray: Bilateral pneumonia versus pulmonary congestion. ProBNP is 215. Influenza is negative On admission he was started on Rocephin, Zithromax, he was given the current half of normal saline, and started on 100 mL per hour Maintained on Zosyn, WBC 5.1, afebrile. No evidence of aspiration as per evaluation with regular diet/thin liquids, restricting one-to-one supervision recommended. Significant clinical improvement. Patient will be discharged back to [facility] pending pulmonary clearance, in a stable condition with guarded prognosis. Microbiology 07/26/19 15:46 Blood Blood Culture - Preliminary No Growth after 72 hours - Exam -GENERAL: The patient is alert , patient smiling, not in any acute distress. Obese CARDIOVASCULAR: S1 and S2 present. No murmurs, rubs, or gallops. -PULMONARY: Chest is clear to auscultation, no wheezing or crackles. Coarse rhonchi. ABDOMEN: Soft, nontender, nondistended, normoactive bowel sounds. No palpable organomegaly. NEUROLOGICAL: Gross neurological examination did not reveal any focal deficits. The impression and plan of care has been dictated as directed. : I performed a history and examination of this patient, discussed the same with the dictator. I agree with the dictator's note ,documented as a scribe. Any additional findings or plans will be noted. Patient Condition at Discharge: Stable Plan - Discharge Summary Discharge Rx Participant: Yes New Discharge Prescriptions: New Amoxic-Pot Clav 875-125Mg [Augmentin 875-125] 1 tab PO Q12HR #10 tablet Famotidine [Pepcid] 20 mg PO DAILY #15 tablet Continue hydrOXYzine HCL [Atarax] 25 mg PO HS@2100 Ferrous Sulfate [Iron (65 MG Elemental)] 325 mg PO BID@0700,2100 Allopurinol [Zyloprim] 100 mg PO DAILY@0700 Cholecalciferol (Vitamin D3) [Vitamin D3] 2,000 unit PO DAILY@0700 Acetaminophen Tab [Tylenol] 650 mg PO Q6H PRN PRN Reason: Fever And/ Or Pain QUEtiapine [SEROquel] 50 mg PO HS@2100 guaiFENesin [Mucinex] 600 mg PO BID PRN PRN Reason: Congestion Discontinued Cephalexin [Keflex] 500 mg PO TID Discharge Medication List Allopurinol [Zyloprim] 100 mg PO DAILY@0700 06/01/18 [History] Ferrous Sulfate [Iron (65 MG Elemental)] 325 mg PO BID@0700,2100 06/01/18 [History] hydrOXYzine HCL [Atarax] 25 mg PO HS@2100 06/01/18 [History] Acetaminophen Tab [Tylenol] 650 mg PO Q6H PRN 07/26/19 [History] Cholecalciferol (Vitamin D3) [Vitamin D3] 2,000 unit PO DAILY@0700 07/26/19 [History] QUEtiapine [SEROquel] 50 mg PO HS@2100 07/26/19 [History] guaiFENesin [Mucinex] 600 mg PO BID PRN 07/26/19 [History] Amoxic-Pot Clav 875-125Mg [Augmentin 875-125] 1 tab PO Q12HR #10 tablet 07/30/19 [Rx] Famotidine [Pepcid] 20 mg PO DAILY #15 tablet 07/30/19 [Rx] Follow up Appointment(s)/Referral(s): Joni Reina DO [Primary Care Provider] - 3 Days Ambulatory/Diagnostic Orders: Complete Blood Count w/diff [LAB.AMB] Time Frame: 3 Days, Location: None Selected Activity/Diet/Wound Care/Special Instructions: [facility] Pending pulmonary clearance & final dc rec
[2019-07-30 12:12] LABS: Calcium 8.1 mg/dL (8.4-10.2)
[2019-07-30 12:14] LABS: Potassium 4.7 mmol/L (3.5-5.1)
--- NOTE | 2019-07-30 17:48 | P.PN ---
Subjective Progress Note Date: 07/30/19 Principal diagnosis: Acute right lower lobe pneumonia This is a pleasant 48-year-old gentleman who has Down syndrome as well as a form of autism, gout, psoriasis, congenital cardiac defects. He has resided in a foster retirement since he was 6 years old. He is nonverbal. His sister who is his guardian is present at the bedside and supplies most of the information. They found him to have increasing cough congestion weakness less interactive than usual the last several days. He was brought into the emergency room and was found to have a mild right lower lobe infiltrate. She states he eats well he does need to be fed but does not choke on food or drinks. No previous h istory of aspiration. He is seen today in consultation on the regular medical floor. He is maintaining O2 saturations in the mid 90s on room air. He's been afebrile. Hemodynamically stable. White count 21.5. Hemoglobin 12.7. Creatinine 2.18. Lactic acid 7.4 currently 0.7. He is currently on Zosyn. His sister states he is more interactive today compared to yesterday. The patient is seen today 07/28/2019 in follow-up on the regular medical floor. He is currently resting comfortably in bed. Awake and alert in no acute distress. Maintaining O2 saturation in the 90s on room air. He's afebrile. Hemodynamically stable. Blood cultures reveal no growth. White count 7.9. Hemoglobin 10.6. Creatinine is 1.98. Remains on Zosyn. The patient is seen today 07/29/2019 in follow-up on the regular medical floor. He is currently sitting up in a chair. Awake. Appears in no acute distress. Maintaining O2 saturations in the 90s on room air. She's afebrile. Hemodynamically stable. Blood culture reveals no growth. White count 4.0. Hemoglobin 11.4. Continued on Zosyn. The patient is seen today 07/30/2019 in follow-up on the regular medical floor. He is currently sitting up in a chair at the bedside. Awake and alert in no acute distress. He is maintaining good O2 saturations in the upper 90s on room air. He's been afebrile. Hemodynamically stable. More active today. Blood cultures reveal no growth. White count 5.1. Hemoglobin 11.2. Creatinine 2.22. Maintained on Zosyn. Objective - Vital Signs Vital signs: Vital Signs Temp 97.4 F L 07/29/19 20:59 Pulse 77 07/30/19 05:00 Resp 16 07/30/19 05:00 BP 141/71 07/30/19 05:00 Pulse Ox 98 07/30/19 05:00 Intake & Output 07/29/19 07/30/19 07/30/19 18:59 06:59 18:59 Intake Total 2500 1210 300 Balance 2500 1210 300 Intake: Intake, IV Titration 700 500 300 Amount Piperacillin-Tazobactam 3 100 100 100 .375 gm In Sodium Chloride 0.9% 100 ml @ 25 mls/hr IVPB Q8HR [facility] Rx# :[id number] Sodium Chloride 0.9% 1, 600 400 200 000 ml @ 50 mls/hr IV . Q20H [facility] Rx#:[id number] Oral 1800 710 Other: Voiding Method Diaper Toilet Toilet Diaper Diaper # Voids 2 2 2 # Bowel Movements 1 - Exam GENERAL EXAM: Pleasant 48-year-old gentleman with clinical features of Down syndrome. Nonverbal. Alert, smiling, on room air, comfortable in no apparent distress. HEAD: Normocephalic. EYES: Normal reaction of pupils, equal size. NOSE: Clear with pink turbinates. THROAT: No erythema or exudates. NECK: No masses, no JVD. CHEST: No chest wall deformity. LUNGS: Equal air entry with rhonchi, crackles or wheeze. CVS: S1 and S2 normal with no audible murmur, regular rhythm. ABDOMEN: No hepatosplenomegaly, normal bowel sounds, no guarding or rigidity. SPINE: No scoliosis or deformity SKIN: No rashes CENTRAL NERVOUS SYSTEM: No focal deficits, tone is normal in all 4 extremities. EXTREMITIES: There is no peripheral edema. No clubbing, no cyanosis. Peripheral pulses are intact. - Labs CBC & Chem 7: 07/30/19 07:39 07/30/19 07:39 Labs: Abnormal Lab Results - Last 24 Hours (Table) 07/30/19 07/30/19 Range/Units 07:39 07:39 RBC 3.42 L (4.30-5.90) m/uL Hgb 11.2 L (13.0-17.5) gm/dL Hct 34.8 L (39.0-53.0) % MCV 102.0 H (80.0-100.0) fL Chloride 117 H (98-107) mmol/L Carbon Dioxide 21 L (22-30) mmol/L Creatinine 2.22 H (0.66-1.25) mg/dL Calcium 8.1 L (8.4-10.2) mg/dL Microbiology - Last 24 Hours (Table) 07/26/19 15:46 Blood Culture - Preliminary Blood No Growth after 72 hours Assessment and Plan Assessment: 1 Acute right lower lobe pneumonia, community-acquired however the patient does live in foster care setting. 2 Leukocytosis secondary to above. Recovered. 3 Febrile illness secondary to above, recovered 4 Lactic acidosis secondary to above, recovered 5 Down syndrome 6 Autism 7 History of cardiac congenital abnormality 8 Gout 9 Psoriasis. Plan: The patient was seen and evaluated by Dr. Gamez. He is cleared for discharge from pulmonary standpoint. Complete course of antibiotics in the form of Augmentin. I, the cosigning physician, performed a history & physical examination of the patient. Lungs sounds clear. Maintaining good O2 saturations in the 90s on room air. I discussed the assessment and plan of care with my nurse practitioner, Ellie Bartlett. I attest to the above consultation as dictated by her.
== END 2019-07-30 16:39 | disposition home or self-care (01) | DRG 194 ==
LOC: EC 13:31 → 3SCARD 17:49 → 5NMEDONC 07-27 10:10
PROVIDERS: ADMIT Family Medicine; ATTEND Family Medicine
DX: J18.9 Pneumonia, unspecified organism (principal); E87.2 Acidosis; F84.0 Autistic disorder; E86.0 Dehydration; L40.9 Psoriasis, unspecified; M10.9 Gout, unspecified; N18.9 Chronic kidney disease, unspecified; Q24.9 Congenital malformation of heart, unspecified; Q90.9 Down syndrome, unspecified; Z79.899 Other long term (current) drug therapy; Z82.0 Family history of epilepsy and other diseases of the nervous system; Z82.49 Family history of ischemic heart disease and other diseases of the circulatory system; Z82.3 Family history of stroke; Z87.01 Personal history of pneumonia (recurrent); Z88.0 Allergy status to penicillin
CPT/HCPCS: 36415; 71045; 80048; 80053; 83605; 83880; 84484; 85025; 87040; 87502; 96361; 96374; 99285

== ENCOUNTER 2020-09-05 18:58 | Inpatient (IN) | payer MEDICARE, OTHER ==
[2020-09-05] MEDS ORDERED: ZIPRASIDONE 20 MG VIAL IM STA (19:47)
[2020-09-05] MEDS ORDERED: SODIUM CHLORIDE 0.9% 1,000 ML IV ONE (19:51)
[2020-09-05] MEDS ORDERED: LORazepam 2 MG/ML INJ IM STA ×2 (20:48→21:29)
--- NOTE | 2020-09-05 21:59 | CT ---
EXAMINATION TYPE: CT brain wo con DATE OF EXAM: 09/05/2020 COMPARISON: None HISTORY: Altered mental status. CT DLP: 1068.4 mGycm Automated exposure control for dose reduction was used. Ventricles are prominent.. There is no mass effect nor midline shift. There is no sign of intracrania l hemorrhage. There is some cerebral cortical atrophy. There is symmetric dense thalamic calcificatio n. The calvarium is intact. The skull base is intact. There is very little pneumatization of the mast oid sinuses. IMPRESSION: Cerebral atrophy. Thalamic calcification. No acute intracranial abnormality.
--- NOTE | 2020-09-05 22:01 | XR ---
EXAMINATION TYPE: XR chest 2V DATE OF EXAM: 09/05/2020 COMPARISON: 07/29/2019 HISTORY: Follow-up pneumonia TECHNIQUE: 2 views FINDINGS: Heart is slightly enlarged. There is no heart failure. There is mild increased interstitial pulmonary density. There is slight blunting of the costophrenic angles. Bony thorax is intact. IMPRESSION: Pleural fluid and interstitial mild edema is mostly cleared compared to old exam. Mild ca rdiomegaly.
[2020-09-05 22:07] LABS: Anisocytosis Slight; Basophils % (A) 0 %; Eosinophils # (A) 0.1 k/uL (0-0.7); Eosinophils % (A) 1 %; HCT 36.9 % (39.0-53.0); HGB 11.7 gm/dL (13.0-17.5); Lymphocytes # (A) 0.3 k/uL (1.0-4.8); Lymphocytes % (A) 4 %; MCH 32.6 pg (25.0-35.0); MCHC 31.8 g/dL (31.0-37.0); MCV 102.5 fL (80.0-100.0); Macrocytosis Moderate; Mean Platelet Volume 7.2; Monocytes # (A) 0.2 k/uL (0-1.0); Monocytes % (A) 2 %; Neutrophils # (A) 8.7 k/uL (1.3-7.7); Neutrophils % (A) 93 %; Platelet Count 283 k/uL (150-450); RDW 16.9 % (11.5-15.5); WBC 9.3 k/uL (3.8-10.6)
[2020-09-05 22:22] LABS: INR 1.1 (<1.2); Lactic Acid, Venous 1.4 mmol/L (0.7-2.0); Prothrombin Time 11.2 sec (9.0-12.0)
[2020-09-05 22:23] LABS: ALT 17 U/L (4-49); AST 35 U/L (17-59); Acetaminophen <10.0 ug/mL; African American GFR (CKD) 43 (>60 ml/min/1.73 sqM); Albumin 3.7 g/dL (3.5-5.0); Alkaline Phosphatase 106 U/L (38-126); Anion Gap 13 mmol/L; Blood Urea Nitrogen 21 mg/dL (9-20); Calcium 8.8 mg/dL (8.4-10.2); Carbon Dioxide 19 mmol/L (22-30); Chloride 107 mmol/L (98-107); Creatine Kinase 198 U/L (55-170); Glucose 169 mg/dL (74-99); Non-African American GFR(CKD) 38 (>60 ml/min/1.73 sqM); Partial Thromboplastin Time 21.5 sec (22.0-30.0); Potassium 3.4 mmol/L (3.5-5.1); Salicylate <1.0 mg/dL; Sodium 139 mmol/L (137-145); Total Bilirubin 0.8 mg/dL (0.2-1.3); Total Protein 6.9 g/dL (6.3-8.2)
[2020-09-05] MEDS ORDERED: AZITHROMYCIN 500 MG in SODIUM CHLORIDE 0.9% 250 ML IVPB STA (23:23)
[2020-09-05] MEDS ORDERED: cefTRIAXone IN SWFI 1,000 MG/10 ML SYRINGE IVP STA (23:23)
--- NOTE | 2020-09-05 23:26 | ED ---
General Adult HPI - General Chief complaint: Altered Mental Status Stated complaint: altered mental status Time Seen by Provider: 09/05/20 19:23 Source: Caregiver Mode of arrival: ambulatory Limitations: altered mental status, physical limitation - History of Present Illness Initial comments: 50-year-old male with past history of autism and Down's syndrome who presents emergency Department with reported abnormal behavior. Care Attendant is at bedside and helps provide the history. States that she has taking care of the patient since he is a teenager. He normally has a very soft demeanor and is easy to direct. States for the past 3 days the patient has been aggressive with constant yelling and screaming. States this is not his normal baseline. R eports that patient previously had similar episode and he was found to have pneumonia. She denies any sick contacts. No fevers or chills. No cough. Patient has not been complaining of any pain. He has had a decreased appetite with poor oral intake. The remainder of the HPI is limited because the patient's history of cerebral palsy and nonverbal status - Related Data Home Medications Medication Instructions Recorded Confirmed Ferrous Sulfate [Iron (65 MG 325 mg PO TID 06/01/18 09/05/20 Elemental)] allopurinoL [Zyloprim] 200 mg PO DAILY 06/01/18 09/05/20 hydrOXYzine HCL [Atarax] 25 mg PO HS 06/01/18 09/05/20 Cholecalciferol (Vitamin D3) 50 mcg PO Q48H 07/26/19 09/05/20 [Vitamin D3] QUEtiapine [SEROquel] 50 mg PO HS 07/26/19 09/05/20 Allergies Allergy/AdvReac Type Severity Reaction Status Date / Time amoxicillin AdvReac Unknown Verified 09/05/20 19:19 Review of Systems ROS Statement: Those systems with pertinent positive or pertinent negative responses have been documented in the HPI. ROS Other: All systems not noted in ROS Statement are negative. Past Medical History Past Medical History: Skin Disorder Additional Past Medical History / Comment(s): Down syndrom and autism, kidney issues, cardiac cushion defects, gout arthritis and psoriasis pnuemonia years ago with pneumothorax. History of Any Multi-Drug Resistant Organisms: None Reported Past Surgical History: No Surgical Hx Reported Past Anesthesia/Blood Transfusion Reactions: Unable to Obtain Past Psychological History: Anxiety Smoking Status: Never smoker Past Alcohol Use History: None Reported Past Drug Use History: None Reported - Past Family History Sister(s) Family Medical History: Hypertension Father Family Medical History: CVA/TIA Additional Family Medical History / Comment(s): Parkinsons General Exam Limitations: altered mental status, physical limitation General appearance: alert, anxious Head exam: Present: atraumatic, normocephalic, normal inspection Eye exam: Present: normal appearance, PERRL, EOMI. Absent: scleral icterus, conjunctival injection, periorbital swelling ENT exam: Present: mucous membranes dry Neck exam: Present: normal inspection. Absent: tenderness, meningismus, lymphadenopathy Respiratory exam: Present: normal lung sounds bilaterally. Absent: respiratory distress, wheezes, rales, rhonchi, stridor Cardiovascular Exam: Present: regular rate, normal rhythm, normal heart sounds. Absent: systolic murmur, diastolic murmur, rubs, gallop, clicks GI/Abdominal exam: Present: soft, normal bowel sounds. Absent: distended, tenderness, guarding, rebound, rigid Extremities exam: Present: normal inspection, full ROM, normal capillary refill. Absent: tenderness, pedal edema, joint swelling, calf tenderness Back exam: Present: normal inspection Neurological exam: Present: alert Psychiatric exam: Present: agitated, other (screaming, uncooperative) Skin exam: Present: warm, dry, intact, normal color. Absent: rash Course Vital Signs 09/05/20 09/05/20 09/05/20 20:55 22:16 23:55 Temperature 97.1 F L Pulse Rate 64 86 52 L Respiratory 20 16 16 Rate Blood Pressure 122/109 100/58 111/62 O2 Sat by Pulse 98 95 96 Oximetry 09/06/20 09/06/20 04:30 14:54 Temperature 98.0 F Pulse Rate 60 74 Respiratory 16 18 Rate Blood Pressure 95/64 110/78 O2 Sat by Pulse 96 99 Oximetry EKG Findings - EKG Comments: EKG Findings:: EKG demonstrates normal sinus rhythm with a ventricular rate of 93. KS interval 148. QRS 92. QTC 497. No acute ST segment elevations or depressions concerning for ischemic changes Medical Decision Making - Medical Decision Making Upon arrival patient was placed into room 25. A thorough history and physical exam was performed. Patient is extremely uncooperative, crouching down on the corner of the room. Because of this 20 mg of IM Geodon is ordered. Patient is watched for approximately one hour and has no change in his agitation. He was then given 2 mg of Ativan and watched for an additional hour. Patient continues to remain agitated and we are unable to get laboratory studies or imaging. Because of this and additional 2 mg of Ativan was ordered and patient is able to be placed in the bed. Laboratory studies are drawn. Catheterization is performed. Patient went for CT of his head as well as chest x-ray. Laboratory studies reviewed and discussed with the manager investment banking. Chest x-ray does demonstrate mild increased interstitial pulmonary density. Blood cultures obtained, patient started on antibiotics. Patient's will be admitted overnight. Spoke with Dr. Cool who agreed to admit the patient. Care Attendant agreed to this treatment plan and the patient is currently awaiting a bed on the floor - Lab Data Result diagrams: 09/06/20 05:55 09/06/20 05:55 Lab Results 09/05/20 09/05/20 09/05/20 Range/Units 21:45 21:45 21:45 WBC 9.3 (3.8-10.6) k/uL RBC 3.60 L (4.30-5.90) m/uL Hgb 11.7 L (13.0-17.5) gm/dL Hct 36.9 L (39.0-53.0) % MCV 102.5 H (80.0-100.0) fL MCH 32.6 (25.0-35.0) pg MCHC 31.8 (31.0-37.0) g/dL RDW 16.9 H (11.5-15.5) % Plt Count 283 (150-450) k/uL MPV 7.2 Neutrophils % 93 % Lymphocytes % 4 % Monocytes % 2 % Eosinophils % 1 % Basophils % 0 % Neutrophils # 8.7 H (1.3-7.7) k/uL Lymphocytes # 0.3 L (1.0-4.8) k/uL Monocytes # 0.2 (0-1.0) k/uL Eosinophils # 0.1 (0-0.7) k/uL Basophils # 0.0 (0-0.2) k/uL Anisocytosis Slight Macrocytosis Moderate PT 11.2 (9.0-12.0) sec INR 1.1 (<1.2) APTT 21.5 L (22.0-30.0) sec Sodium 139 (137-145) mmol/L Potassium 3.4 L (3.5-5.1) mmol/L Chloride 107 (98-107) mmol/L Carbon Dioxide 19 L (22-30) mmol/L Anion Gap 13 mmol/L BUN 21 H (9-20) mg/dL Creatinine 1.99 H (0.66-1.25) mg/dL Est GFR (CKD-EPI)AfAm 43 (>60 ml/min/1.73 sqM) Est GFR (CKD-EPI)NonAf 38 (>60 ml/min/1.73 sqM) Glucose 169 H (74-99) mg/dL Plasma Lactic Acid Maurisio (0.7-2.0) mmol/L Calcium 8.8 (8.4-10.2) mg/dL Total Bilirubin 0.8 (0.2-1.3) mg/dL AST 35 (17-59) U/L ALT 17 (4-49) U/L Alkaline Phosphatase 106 (38-126) U/L Ammonia (<30) umol/L Creatine Kinase 198 H (55-170) U/L Troponin I (0.000-0.034) ng/mL Total Protein 6.9 (6.3-8.2) g/dL Albumin 3.7 (3.5-5.0) g/dL TSH 3.190 (0.465-4.680) mIU/L Urine Color Urine Appearance (Clear) Urine pH (5.0-8.0) Ur Specific Jefferson (1.001-1.035) Urine Protein (Negative) Urine Glucose (UA) (Negative) Urine Ketones (Negative) Urine Blood (Negative) Urine Nitrite (Negative) Urine Bilirubin (Negative) Urine Urobilinogen (<2.0) mg/dL Ur Leukocyte Esterase (Negative) Urine RBC (0-5) /hpf Urine WBC (0-5) /hpf Urine Mucus (None) /hpf Salicylates <1.0 mg/dL Urine Opiates Screen (NotDetected) Ur Oxycodone Screen (NotDetected) Urine Methadone Screen (NotDetected) Ur Propoxyphene Screen (NotDetected) Acetaminophen <10.0 ug/mL Ur Barbiturates Screen (NotDetected) U Tricyclic Antidepress (NotDetected) Ur Phencyclidine Scrn (NotDetected) Ur Amphetamines Screen (NotDetected) U Methamphetamines Scrn (NotDetected) U Benzodiazepines Scrn (NotDetected) Urine Cocaine Screen (NotDetected) U Marijuana (THC) Screen (NotDetected) Coronavirus (PCR) (Not Detectd) 09/05/20 09/05/20 09/05/20 Range/Units 21:45 21:45 23:40 WBC (3.8-10.6) k/uL RBC (4.30-5.90) m/uL Hgb (13.0-17.5) gm/dL Hct (39.0-53.0) % MCV (80.0-100.0) fL MCH (25.0-35.0) pg MCHC (31.0-37.0) g/dL RDW (11.5-15.5) % Plt Count (150-450) k/uL MPV Neutrophils % % Lymphocytes % % Monocytes % % Eosinophils % % Basophils % % Neutrophils # (1.3-7.7) k/uL Lymphocytes # (1.0-4.8) k/uL Monocytes # (0-1.0) k/uL Eosinophils # (0-0.7) k/uL Basophils # (0-0.2) k/uL Anisocytosis Macrocytosis PT (9.0-12.0) sec INR (<1.2) APTT (22.0-30.0) sec Sodium (137-145) mmol/L Potassium (3.5-5.1) mmol/L Chloride (98-107) mmol/L Carbon Dioxide (22-30) mmol/L Anion Gap mmol/L BUN (9-20) mg/dL Creatinine (0.66-1.25) mg/dL Est GFR (CKD-EPI)AfAm (>60 ml/min/1.73 sqM) Est GFR (CKD-EPI)NonAf (>60 ml/min/1.73 sqM) Glucose (74-99) mg/dL Plasma Lactic Acid Maurisio 1.4 (0.7-2.0) mmol/L Calcium (8.4-10.2) mg/dL Total Bilirubin (0.2-1.3) mg/dL AST (17-59) U/L ALT (4-49) U/L Alkaline Phosphatase (38-126) U/L Ammonia <9 (<30) umol/L Creatine Kinase (55-170) U/L Troponin I <0.012 (0.000-0.034) ng/mL Total Protein (6.3-8.2) g/dL Albumin (3.5-5.0) g/dL TSH (0.465-4.680) mIU/L Urine Color Urine Appearance (Clear) Urine pH (5.0-8.0) Ur Specific [place] (1.001-1.035) Urine Protein (Negative) Urine Glucose (UA) (Negative) Urine Ketones (Negative) Urine Blood (Negative) Urine Nitrite (Negative) Urine Bilirubin (Negative) Urine Urobilinogen (<2.0) mg/dL Ur Leukocyte Esterase (Negative) Urine RBC (0-5) /hpf Urine WBC (0-5) /hpf Urine Mucus (None) /hpf Salicylates mg/dL Urine Opiates Screen (NotDetected) Ur Oxycodone Screen (NotDetected) Urine Methadone Screen (NotDetected) Ur Propoxyphene Screen (NotDetected) Acetaminophen ug/mL Ur Barbiturates Screen (NotDetected) U Tricyclic Antidepress (NotDetected) Ur Phencyclidine Scrn (NotDetected) Ur Amphetamines Screen (NotDetected) U Methamphetamines Scrn (NotDetected) U Benzodiazepines Scrn (NotDetected) Urine Cocaine Screen (NotDetected) U Marijuana (THC) Screen (NotDetected) Coronavirus (PCR) Not Detected (Not Detectd) 09/05/20 Range/Units 23:50 WBC (3.8-10.6) k/uL RBC (4.30-5.90) m/uL Hgb (13.0-17.5) gm/dL Hct (39.0-53.0) % MCV (80.0-100.0) fL MCH (25.0-35.0) pg MCHC (31.0-37.0) g/dL RDW (11.5-15.5) % Plt Count (150-450) k/uL MPV Neutrophils % % Lymphocytes % % Monocytes % % Eosinophils % % Basophils % % Neutrophils # (1.3-7.7) k/uL Lymphocytes # (1.0-4.8) k/uL Monocytes # (0-1.0) k/uL Eosinophils # (0-0.7) k/uL Basophils # (0-0.2) k/uL Anisocytosis Macrocytosis PT (9.0-12.0) sec INR (<1.2) APTT (22.0-30.0) sec Sodium (137-145) mmol/L Potassium (3.5-5.1) mmol/L Chloride (98-107) mmol/L Carbon Dioxide (22-30) mmol/L Anion Gap mmol/L BUN (9-20) mg/dL Creatinine (0.66-1.25) mg/dL Est GFR (CKD-EPI)AfAm (>60 ml/min/1.73 sqM) Est GFR (CKD-EPI)NonAf (>60 ml/min/1.73 sqM) Glucose (74-99) mg/dL Plasma Lactic Acid Maurisio (0.7-2.0) mmol/L Calcium (8.4-10.2) mg/dL Total Bilirubin (0.2-1.3) mg/dL AST (17-59) U/L ALT (4-49) U/L Alkaline Phosphatase (38-126) U/L Ammonia (<30) umol/L Creatine Kinase (55-170) U/L Troponin I (0.000-0.034) ng/mL Total Protein (6.3-8.2) g/dL Albumin (3.5-5.0) g/dL TSH (0.465-4.680) mIU/L Urine Color Yellow Urine Appearance Cloudy (Clear) Urine pH 5.0 (5.0-8.0) Ur Specific [place] 1.015 (1.001-1.035) Urine Protein 1+ H (Negative) Urine Glucose (UA) Negative (Negative) Urine Ketones Trace H (Negative) Urine Blood Moderate H (Negative) Urine Nitrite Negative (Negative) Urine Bilirubin Negative (Negative) Urine Urobilinogen <2.0 (<2.0) mg/dL Ur Leukocyte Esterase Negative (Negative) Urine RBC 18 H (0-5) /hpf Urine WBC 5 (0-5) /hpf Urine Mucus Rare H (None) /hpf Salicylates mg/dL Urine Opiates Screen Not Detected (NotDetected) Ur Oxycodone Screen Not Detected (NotDetected) Urine Methadone Screen Not Detected (NotDetected) Ur Propoxyphene Screen Not Detected (NotDetected) Acetaminophen ug/mL Ur Barbiturates Screen Not Detected (NotDetected) U Tricyclic Antidepress Not Detected (NotDetected) Ur Phencyclidine Scrn Not Detected (NotDetected) Ur Amphetamines Screen Not Detected (NotDetected) U Methamphetamines Scrn Not Detected (NotDetected) U Benzodiazepines Scrn Not Detected (NotDetected) Urine Cocaine Screen Not Detected (NotDetected) U Marijuana (THC) Screen Not Detected (NotDetected) Coronavirus (PCR) (Not Detectd) Disposition Clinical Impression: Pneumonia, CKD (chronic kidney disease), Acute encephalopathy Disposition: ADMITTED IP TO THIS [facility] Condition: Stable Is patient prescribed a controlled substance at d/c from ED?: No Decision to Admit Reason: Admit from EC Decision Date: 09/05/20 Decision Time: 23:29
[2020-09-05] MEDS ORDERED: NALOXONE 0.4 MG/ML 1 ML VIAL IV PRN (23:30)
[2020-09-06] MEDS ORDERED: AZITHROMYCIN 500 MG in SODIUM CHLORIDE 0.9% 250 ML IVPB ONE ×2
[2020-09-06 00:06] LABS: Appearance,Urine Cloudy (Clear); Bilirubin,Urine Negative (Negative); Blood,Urine Moderate (Negative); Color,Urine Yellow; Glucose,Urine (UA) Negative (Negative); Ketones,Urine Trace (Negative); Leukocyte Esterase,Urine Negative (Negative); Mucus,Urine Rare /hpf; Nitrite,Urine Negative (Negative); Protein,Urine 1+ (Negative); RBC,Urine 18 /hpf (0-5); Specific Gravity,Urine 1.015 (1.001-1.035); Urobilinogen,Urine <2.0 mg/dL (<2.0); WBC,Urine 5 /hpf (0-5)
[2020-09-06] MEDS: SODIUM CHLORIDE 0.9% 1,000 ML IV SCH ×4 (00:06→19:47)
[2020-09-06 00:17] LABS: Amphetamine Screen,Urine Not Detected (NotDetected); Barbiturate Screen,Urine Not Detected (NotDetected); Benzodiazepines Screen,Urine Not Detected (NotDetected); Cocaine Screen,Urine Not Detected (NotDetected); Methadone Screen, Urine Not Detected (NotDetected); Opiate Screen,Urine Not Detected (NotDetected); Oxycodone Screen, Urine Not Detected (NotDetected); Phencyclidine Screen,Urine Not Detected (NotDetected); Tricyclic Antidepressant,Urine Not Detected (NotDetected); Urn Cannabinoid Scrn Not Detected (NotDetected)
[2020-09-06 06:16] LABS: Anisocytosis Slight; Basophils % (A) 1 %; Eosinophils # (A) 0.1 k/uL (0-0.7); Eosinophils % (A) 1 %; HCT 40.4 % (39.0-53.0); HGB 12.5 gm/dL (13.0-17.5); Hypochromasia Slight; Lymphocytes # (A) 1.3 k/uL (1.0-4.8); Lymphocytes % (A) 15 %; MCH 32.8 pg (25.0-35.0); MCHC 30.9 g/dL (31.0-37.0); MCV 105.9 fL (80.0-100.0); Macrocytosis Moderate; Mean Platelet Volume 7.5; Monocytes # (A) 0.5 k/uL (0-1.0); Monocytes % (A) 6 %; Neutrophils # (A) 6.8 k/uL (1.3-7.7); Neutrophils % (A) 76 %; Platelet Count 228 k/uL (150-450); RBC 3.81 m/uL (4.30-5.90); RDW 16.6 % (11.5-15.5); WBC 8.9 k/uL (3.8-10.6)
[2020-09-06 06:26] LABS: Potassium 4.5 mmol/L (3.5-5.1)
[2020-09-06] MEDS ORDERED: LORazepam 2 MG/ML INJ IV PRN (16:12)
[2020-09-06] MEDS ORDERED: CHOLECALCIFEROL 25 MCG (1000 IU) TABLET PO SCH (17:00)
--- NOTE | 2020-09-06 18:25 | P.HPIM ---
History of Present Illness H&P Date: 09/06/20 Chief Complaint: Altered mental status 50-year-old male with past history of autism and Down's syndrome who presents emergency Department with reported abnormal behavior. Bag Valver is at bedside and helps provide the history. States that she has taking care of the patient s candie he is a teenager. He normally has a very soft and is easy to direct. States for the past 3 days the patient has been aggressive with constant yelling and screaming. States this is not his normal baseline. Reports that patient previously had similar episode and he was found to have pneumonia. She denies any sick contacts. No fevers or chills. No cough. Patient has not been complaining of any pain. He has had a decreased appetite with poor oral intake. The remainder of the HPI is limited because the patient's history of cerebral palsy and nonverbal status Chest x-ray does demonstrate mild increased interstitial pulmonary density. Blood cultures obtained patient started on antibiotics. Review of Systems ROS unobtainable: due to mental status Past Medical History Past Medical History: Skin Disorder Additional Past Medical History / Comment(s): Down syndrom and autism, kidney issues, cardiac cushion defects, gout arthritis and psoriasis pnuemonia years ago with pneumothorax. History of Any Multi-Drug Resistant Organisms: None Reported Past Surgical History: No Surgical Hx Reported Past Anesthesia/Blood Transfusion Reactions: Unable to Obtain Past Psychological History: Anxiety Smoking Status: Never smoker Past Alcohol Use History: None Reported Past Drug Use History: None Reported - Past Family History Sister(s) Family Medical History: Hypertension Father Family Medical History: CVA/TIA Additional Family Medical History / Comment(s): Parkinsons Medications and Allergies Home Medications Medication Instructions Recorded Confirmed Type Ferrous Sulfate [Iron (65 MG 325 mg PO TID 06/01/18 09/05/20 History Elemental)] allopurinoL [Zyloprim] 200 mg PO DAILY 06/01/18 09/05/20 History hydrOXYzine HCL [Atarax] 25 mg PO HS 06/01/18 09/05/20 History Cholecalciferol (Vitamin D3) 50 mcg PO Q48H 07/26/19 09/05/20 History [Vitamin D3] QUEtiapine [SEROquel] 50 mg PO HS 07/26/19 09/05/20 History Allergies Allergy/AdvReac Type Severity Reaction Status Date / Time amoxicillin AdvReac Unknown Verified 09/05/20 19:19 Physical Exam Vitals: Vital Signs Temp Pulse Resp BP Pulse Ox 09/06/20 04:30 98.0 F 60 16 95/64 96 09/05/20 23:55 52 L 16 111/62 96 09/05/20 22:16 86 16 100/58 95 09/05/20 20:55 97.1 F L 64 20 122/109 98 Intake and Output 09/05/20 09/06/20 09/06/20 22:59 06:59 14:59 Other: Weight 52.163 kg - Constitutional General appearance: Present: average body habitus, cooperative, no acute distress - EENT Eyes: Present: anicteric sclerae, EOMI, PERRLA, normal appearance ENT: Present: hearing grossly normal, normal oropharynx Ears: bilateral: normal - Neck Neck: Present: normal ROM. Absent: lymphadenopathy, rigidity, thyromegaly Carotids: negative: bruit present Thyroid: bilateral: normal size, negative: enlarged, nodule - Respiratory Respiratory: bilateral: CTA, negative: rales, rhonchi, wheezing - Cardiovascular Rhythm: regular Heart sounds: normal: S1, S2 Abnormal Heart Sounds: Absent: systolic murmur, diastolic murmur - Gastrointestinal General gastrointestinal: Present: normal bowel sounds, soft. Absent: distended, organomegaly, tenderness - Genitourinary Genitourinary Comment(s): deferred - Integumentary Integumentary: Present: normal turgor. Absent: jaundiced, rash, ulcer - Neurologic Neurologic: Present: CNII-XII intact. Absent: focal deficits - Musculoskeletal Musculoskeletal: Present: gait normal, strength equal bilaterally - Psychiatric Psychiatric: Present: A&O x's 3, appropriate affect, intact judgment & insight Results CBC & Chem 7: 09/06/20 05:55 09/06/20 05:55 Labs: Abnormal Lab Results - Last 24 Hours (Table) 09/05/20 09/05/20 09/05/20 Range/Units 21:45 21:45 21:45 RBC 3.60 L (4.30-5.90) m/uL Hgb 11.7 L (13.0-17.5) gm/dL Hct 36.9 L (39.0-53.0) % MCV 102.5 H (80.0-100.0) fL MCHC (31.0-37.0) g/dL RDW 16.9 H (11.5-15.5) % Neutrophils # 8.7 H (1.3-7.7) k/uL Lymphocytes # 0.3 L (1.0-4.8) k/uL APTT 21.5 L (22.0-30.0) sec Potassium 3.4 L (3.5-5.1) mmol/L Chloride (98-107) mmol/L Carbon Dioxide 19 L (22-30) mmol/L BUN 21 H (9-20) mg/dL Creatinine 1.99 H (0.66-1.25) mg/dL Glucose 169 H (74-99) mg/dL Calcium (8.4-10.2) mg/dL Creatine Kinase 198 H (55-170) U/L Urine Protein (Negative) Urine Ketones (Negative) Urine Blood (Negative) Urine RBC (0-5) /hpf Urine Mucus (None) /hpf 09/05/20 09/06/20 09/06/20 Range/Units 23:50 05:55 05:55 RBC 3.81 L (4.30-5.90) m/uL Hgb 12.5 L (13.0-17.5) gm/dL Hct (39.0-53.0) % MCV 105.9 H (80.0-100.0) fL MCHC 30.9 L (31.0-37.0) g/dL RDW 16.6 H (11.5-15.5) % Neutrophils # (1.3-7.7) k/uL Lymphocytes # (1.0-4.8) k/uL APTT (22.0-30.0) sec Potassium (3.5-5.1) mmol/L Chloride 114 H (98-107) mmol/L Carbon Dioxide (22-30) mmol/L BUN (9-20) mg/dL Creatinine 1.71 H (0.66-1.25) mg/dL Glucose (74-99) mg/dL Calcium 8.0 L (8.4-10.2) mg/dL Creatine Kinase (55-170) U/L Urine Protein 1+ H (Negative) Urine Ketones Trace H (Negative) Urine Blood Moderate H (Negative) Urine RBC 18 H (0-5) /hpf Urine Mucus Rare H (None) /hpf Assessment and Plan Assessment: 1. Altered mental status; toxic/metabolic encephalopathy - Community-acquired pneumonia - Acute renal injury/dehydration 2. Community-acquired pneumonia - We will start patient on IV Rocephin and azithromycin; sputum and blood cultures if possible 3. Acute renal injury/dehydration - Resume IV fluid hydration; monitor strict FRANCIS's, daily weights, renal function and electrolytes; avoid nephrotoxic agents 4. Hypokalemia; supplemented in ED ; we will monitor lactic lites closely 5. Hyperglycemia; no history of diabetes; we will monitor Accu-Cheks every b efore meals and at bedtime and make further recommendations 6. Down syndrome with autism; we will continue to use Geodon for agitation and behavior DVT prophylaxis; SCDs CODE STATUS; full code
[2020-09-06] MEDS ORDERED: HALOPERIDOL LACTATE 5 MG/ML 1 ML VIAL IVP PRN (18:26)
[2020-09-06] MEDS: QUEtiapine 50 MG TAB PO SCH (20:16)
[2020-09-06] MEDS: hydrOXYzine HCL 25 MG TAB PO SCH (20:16)
[2020-09-06] MEDS: FERROUS SULFATE 325 MG TAB PO SCH (20:16)
[2020-09-06] MEDS: HALOPERIDOL LACTATE 5 MG/ML 1 ML VIAL IM PRN (23:13)
[2020-09-07] MEDS: SODIUM CHLORIDE 0.9% 1,000 ML IV SCH ×2 (05:37→07:07)
[2020-09-07] MEDS: HALOPERIDOL LACTATE 5 MG/ML 1 ML VIAL IM PRN (07:00)
[2020-09-07] MEDS ORDERED: LORazepam 2 MG/ML INJ IM STA (07:58)
[2020-09-07] MEDS: FERROUS SULFATE 325 MG TAB PO SCH ×3 (08:12→20:04)
[2020-09-07] MEDS: allopurinoL 100 MG TAB PO SCH (08:13)
[2020-09-07] MEDS ORDERED: LORazepam 2 MG/ML INJ IM PRN (14:06)
[2020-09-07] MEDS: DOXYCYCLINE 100 MG CAP PO SCH ×2 (16:42→20:04)
--- NOTE | 2020-09-07 17:27 | P.PN ---
Subjective Progress Note Date: 09/07/20 Principal diagnosis: Altered mental status Toxic/metabolic encephalopathy 50-year-old male with past history of autism and Down's syndrome who presents emergency Department with reported abnormal behavior. Entry Level is at bedside and helps provide the history. States that she has taking care of the patient since he is a teenager. He normally has a very soft and is easy to direct. States for the past 3 days the patient has been aggressive with constant yelling and screaming. States this is not his normal baseline. Reports that patient previously had similar episode and he was found to have pneumonia. She denies any sick contacts. No fevers or chills. No cough. Patient has not been complaining of any pain. He has had a decreased appetite with poor oral intake. The remainder of the HPI is limited because the patient's history of cerebral palsy and nonverbal status Chest x-ray does demonstrate mild increased interstitial pulmonary density. Blood cultures obtained patient started on antibiotics. 09/07/2020 Patient is seen and evaluated sleeping comfortably in bed with caregiver at bedside; patient had multiple episodes of agitation and aggressive behavior and has been pulling out IVs refusing care; remains on IM Ativan/Haldol Vital signs are reviewed and are stable; patient has pulled off all IV lines; antibiotics have been switched to oral; we will monitor CBC, CRP and pro- calcitonin Patient continues to have multiple behavioral issues; psych is consulted for adjustment of medications Objective - Vital Signs Vital signs: Vital Signs Temp 98.3 F 09/06/20 20:00 Pulse 118 H 09/06/20 20:00 Resp 20 09/06/20 20:00 BP 153/69 09/06/20 20:00 Pulse Ox 95 09/06/20 20:00 Intake & Output 09/06/20 09/07/20 09/07/20 18:59 06:59 18:59 Intake Total 100 Balance 100 Weight 52.163 kg Intake: Oral 100 Other: Voiding Method Diaper Incontinent # Voids 1 1 2 # Bowel Movements 1 - Exam - Constitutional General appearance: Present: average body habitus, cooperative, no acute distress - EENT Eyes: Present: anicteric sclerae, EOMI, PERRLA, normal appearance ENT: Present: hearing grossly normal, normal oropharynx Ears: bilateral: normal - Neck Neck: Present: normal ROM. Absent: lymphadenopathy, rigidity, thyromegaly Carotids: negative: bruit present Thyroid: bilateral: normal size, negative: enlarged, nodule - Respiratory Respiratory: bilateral: CTA, negative: rales, rhonchi, wheezing - Cardiovascular Rhythm: regular Heart sounds: normal: S1, S2 Abnormal Heart Sounds: Absent: systolic murmur, diastolic murmur - Gastrointestinal General gastrointestinal: Present: normal bowel sounds, soft. Absent: distended, organomegaly, tenderness - Genitourinary Genitourinary Comment(s): deferred - Integumentary Integumentary: Present: normal turgor. Absent: jaundiced, rash, ulcer - Neurologic Neurologic: Present: CNII-XII intact. Absent: focal deficits - Musculoskeletal Musculoskeletal: Present: gait normal, strength equal bilaterally - Psychiatric Psychiatric: Present: A&O x's 3, appropriate affect, intact judgment & insight - Labs CBC & Chem 7: 09/06/20 05:55 09/06/20 05:55 Labs: Microbiology - Last 24 Hours (Table) 09/05/20 21:45 Blood Culture - Preliminary Blood No Growth after 24 hours 09/05/20 21:45 Blood Culture - Preliminary Blood No Growth after 24 hours Assessment and Plan Assessment: 1. Altered mental status; toxic/metabolic encephalopathy - Community-acquired pneumonia - Acute renal injury/dehydration 2. Community-acquired pneumonia - We will start patient on IV Rocephin and azithromycin; sputum and blood cultures if possible 3. Acute renal injury/dehydration - Resume IV fluid hydration; monitor strict FRANCIS's, daily weights, renal function and electrolytes; avoid nephrotoxic agents 4. Hypokalemia; supplemented in ED ; we will monitor lactic lites closely 5. Hyperglycemia; no history of diabetes; we will monitor Accu-Cheks every before meals and at bedtime and make further recommendations 6. Down syndrome with autism; we will continue to use Geodon for agitation and behavior DVT prophylaxis; SCDs CODE STATUS; full code
[2020-09-07] MEDS: hydrOXYzine HCL 25 MG TAB PO SCH (20:04)
[2020-09-07] MEDS: QUEtiapine 50 MG TAB PO SCH (20:04)
[2020-09-07 20:37] VITALS: TEMP 98.9
[2020-09-08] MEDS: DOXYCYCLINE 100 MG CAP PO SCH (07:22)
[2020-09-08] MEDS: FERROUS SULFATE 325 MG TAB PO SCH (07:22)
[2020-09-08] MEDS: allopurinoL 100 MG TAB PO SCH (07:22)
[2020-09-08 08:25] VITALS: BP 164/84; PULSE 107; RESP 17
[2020-09-08 09:01] LABS: Basophils # (A) 0.05 X 10*3/uL (0.00-0.10); Basophils % (A) 0.8 %; Eosinophils # (A) 0.17 X 10*3/uL (0.04-0.35); Eosinophils % (A) 2.8 %; HGB 12.4 g/dL (13.0-17.0); Lymphocytes # (A) 2.19 X 10*3/uL (0.90-5.00); Lymphocytes % (A) 36.3 %; MCH 32.4 pg (27.0-32.0); MCV 104.4 fL (80.0-97.0); Mean Platelet Volume 10.1 fL (9.5-12.2); Monocytes # (A) 0.47 X 10*3/uL (0.20-1.00); Monocytes % (A) 7.8 %; Neutrophils # (A) 3.12 X 10*3/uL (1.80-7.70); Neutrophils % (A) 51.8 %; Platelet Count 293 X 10*3/uL (140-440); RBC 3.83 X 10*6/uL (4.40-5.60); RDW 16.5 % (11.5-14.5); WBC 6.03 X 10*3/uL (4.50-10.00)
[2020-09-08 09:38] LABS: African American GFR (CKD) 49.1 (60.0-200.0); Anion Gap 8.7 mmol/L (4.00-12.00); BUN/Creat Ratio 7.78 Ratio (12.00-20.00); Calcium 9.3 mg/dL (8.7-10.3); Carbon Dioxide 24.3 mmol/L (21.6-31.8); Non-African American GFR(CKD) 42.3 (60.0-200.0); Potassium 4.2 mmol/L (3.5-5.5)
--- NOTE | 2020-09-09 17:17 | P.DS ---
Providers Date of admission: 09/06/20 00:00 Expected date of discharge: 09/08/20 Attending physician: Joni Reina Primary care physician: Joni Reina [facility] Course: Final Diagnoses: Community-acquired pneumonia Altered mental status, acute toxic, metabolic encephalopathy secondary to the above Acute on chronic renal failure III, secondary to dehydration Cardiac congenital defect Down syndrome with autism History of gouty arthritis Chronic psoriasis Hospital course: This a 50-year-old gentleman with Down syndrome admitted with community-acquired pneumonia and multiple other medical issues. Maintained on IV fluid hydration and IV antibiotic therapy with significant clinical improvement. Much more alert, sitting up in chair. Patient's caregiver Margo from his long term is at bedside -states patient is at baseline which is nonverbal, non-communicative , makes sounds. Patient will be discharged home today in a stable condition with guarded prognosis. The impression and plan of care has been dictated as directed. : I performed a history and examination of this patient, discussed the same with the dictator. I agree with the dictator's note ,documented as a scribe. Any additional findings or plans will be noted. Patient Condition at Discharge: Stable Plan - Discharge Summary Discharge Rx Participant: Yes New Discharge Prescriptions: New Doxycycline [Vibramycin] 100 mg PO BID #10 cap Continue hydrOXYzine HCL [Atarax] 25 mg PO HS Ferrous Sulfate [Iron (65 MG Elemental)] 325 mg PO TID allopurinoL [Zyloprim] 200 mg PO DAILY Cholecalciferol (Vitamin D3) [Vitamin D3] 50 mcg PO Q48H QUEtiapine [SEROquel] 50 mg PO HS Discharge Medication List Ferrous Sulfate [Iron (65 MG Elemental)] 325 mg PO TID 06/01/18 [History] allopurinoL [Zyloprim] 200 mg PO DAILY 06/01/18 [History] hydrOXYzine HCL [Atarax] 25 mg PO HS 06/01/18 [History] Cholecalciferol (Vitamin D3) [Vitamin D3] 50 mcg PO Q48H 07/26/19 [History] QUEtiapine [SEROquel] 50 mg PO HS 07/26/19 [History] Doxycycline [Vibramycin] 100 mg PO BID #10 cap 09/08/20 [Rx] Follow up Appointment(s)/Referral(s): Joni Reina DO [Primary Care Provider] - 09/10/20 10:00 am (Appointment set with Gwen) Ambulatory/Diagnostic Orders: Basic Metabolic Panel [LAB.AMB] Time Frame: 3 Days, Location: None Selected Complete Blood Count w/diff [LAB.AMB] Location: None Selected Patient Instructions/Handouts: Encephalopathy (DC) Discharge Disposition: HOME SELF-CARE
== END 2020-09-08 10:43 | disposition home or self-care (01) | DRG 193 ==
LOC: EC 18:58 → 4SSUR 09-06
PROVIDERS: ADMIT Family Medicine; ATTEND Family Medicine
DX: J18.9 Pneumonia, unspecified organism (principal); G92 Toxic encephalopathy; N17.9 Acute kidney failure, unspecified; F84.0 Autistic disorder; N18.9 Chronic kidney disease, unspecified; Q90.9 Down syndrome, unspecified; G80.9 Cerebral palsy, unspecified; F41.9 Anxiety disorder, unspecified; E87.6 Hypokalemia; E86.0 Dehydration; M10.9 Gout, unspecified; R73.9 Hyperglycemia, unspecified; R45.1 Restlessness and agitation; Z20.822 Contact with and (suspected) exposure to COVID-19; Z82.3 Family history of stroke; Z82.49 Family history of ischemic heart disease and other diseases of the circulatory system; Z82.0 Family history of epilepsy and other diseases of the nervous system; Z88.0 Allergy status to penicillin; Z79.899 Other long term (current) drug therapy
CPT/HCPCS: 36415; 70450; 71046; 80048; 80053; 80143; 80179; 80306; 81001; 82140; 82550; 83605; 84443; 84484; 85025; 85610; 85730; 87040; 87635; 93005; 96365; 96372; 96375; 99285

== ENCOUNTER 2020-11-25 21:57 | Emergency (ER) | payer MEDICARE, OTHER ==
--- NOTE | 2020-11-25 23:04 | ED ---
General Adult HPI - General Chief complaint: Back Pain/Injury Stated complaint: fever Time Seen by Provider: 11/25/20 22:34 Source: patient, family Mode of arrival: ambulatory Limitations: no limitations, physical limitation - History of Present Illness Initial comments: This patient is a 50-year-old man with history of Down syndrome and reportedly with dementia. Patient is brought by his caregiver who gives all of the history as he does not speak. The patient's for the past 3 days has been continually standing next to her and holding onto her arm. She reports that this is it change from his usual behavior. The patient's last stay in the hospital was for a change in kidney function and therefore caregiver concerned that this may have changed again. No change in bowel movements or urination is noted. No fever at home. Onset/Timin -: days(s) Improves with: none, immobilization Associated Symptoms: denies other symptoms Treatments Prior to Arrival: none - Related Data Home Medications Medication Instructions Recorded Confirmed Ferrous Sulfate [Iron (65 MG 325 mg PO TID 06/01/18 09/05/20 Elemental)] allopurinoL [Zyloprim] 200 mg PO DAILY 06/01/18 09/05/20 hydrOXYzine HCL [Atarax] 25 mg PO HS 06/01/18 09/05/20 Cholecalciferol (Vitamin D3) 50 mcg PO Q48H 07/26/19 09/05/20 [Vitamin D3] QUEtiapine [SEROquel] 50 mg PO HS 07/26/19 09/05/20 Previous Rx's Medication Instructions Recorded Doxycycline [Vibramycin] 100 mg PO BID #10 cap 09/08/20 Allergies Allergy/AdvReac Type Severity Reaction Status Date / Time amoxicillin AdvReac Unknown Verified 11/25/20 22:12 Review of Systems ROS Statement: Those systems with pertinent positive or pertinent negative responses have been documented in the HPI. ROS Other: All systems not noted in ROS Statement are negative. Limitations: ROS unobtainable due to patients medical condition Constitutional: Denies: fever Respiratory: Denies: cough, dyspnea Gastrointestinal: Denies: vomiting, diarrhea Skin: Reports: rash (Chronic psoriasis) Past Medical History Past Medical History: Dementia, Skin Disorder Additional Past Medical History / Comment(s): Down syndrom and autism, kidney is sues, cardiac cushion defects, gout arthritis and psoriasis pnuemonia years ago with pneumothorax. History of Any Multi-Drug Resistant Organisms: None Reported Past Surgical History: No Surgical Hx Reported Past Anesthesia/Blood Transfusion Reactions: Unable to Obtain Past Psychological History: Anxiety Smoking Status: Never smoker Past Alcohol Use History: None Reported Past Drug Use History: None Reported - Past Family History Sister(s) Family Medical History: Hypertension Father Family Medical History: CVA/TIA Additional Family Medical History / Comment(s): Parkinsons General Exam Limitations: no limitations, physical limitation General appearance: alert, in no apparent distress Head exam: Present: atraumatic Eye exam: Present: normal appearance, EOMI. Absent: scleral icterus, conjun ctival injection Neck exam: Present: normal inspection, full ROM. Absent: tenderness, meningismus Respiratory exam: Present: normal lung sounds bilaterally. Absent: respiratory distress, wheezes, rales, rhonchi, stridor, chest wall tenderness, accessory muscle use, decreased breath sounds, prolonged expiratory Cardiovascular Exam: Present: regular rate, normal rhythm, normal heart sounds. Absent: systolic murmur, diastolic murmur, rubs, gallop GI/Abdominal exam: Present: soft, guarding. Absent: distended, tenderness, rebound, rigid, mass Extremities exam: Present: normal inspection, normal capillary refill, pedal edema (Trace of edema at the feet bilaterally). Absent: calf tenderness Back exam: Present: normal inspection. Absent: tenderness, vertebral tenderness Neurological exam: Present: alert. Absent: motor sensory deficit Skin exam: Present: warm, dry, intact, other (Psoriatic plaques) Course Vital Signs 11/26/20 02:00 Pulse Rate 87 Respiratory 18 Rate Blood Pressure 162/90 O2 Sat by Pulse 98 Oximetry Medical Decision Making - Lab Data Result diagrams: 11/25/20 23:08 11/25/20 23:08 Lab Results 11/25/20 11/25/20 11/25/20 Range/Units 23:08 23:08 23:08 WBC 7.4 (3.8-10.6) k/uL RBC 3.88 L (4.30-5.90) m/uL Hgb 13.3 (13.0-17.5) gm/dL Hct 40.0 (39.0-53.0) % MCV 103.0 H (80.0-100.0) fL MCH 34.2 (25.0-35.0) pg MCHC 33.2 (31.0-37.0) g/dL RDW 14.2 (11.5-15.5) % Plt Count 272 (150-450) k/uL MPV 7.5 Neutrophils % 71 % Lymphocytes % 19 % Monocytes % 6 % Eosinophils % 2 % Basophils % 1 % Neutrophils # 5.2 (1.3-7.7) k/uL Lymphocytes # 1.4 (1.0-4.8) k/uL Monocytes # 0.4 (0-1.0) k/uL Eosinophils # 0.2 (0-0.7) k/uL Basophils # 0.1 (0-0.2) k/uL Macrocytosis Slight Sodium 138 (137-145) mmol/L Potassium 4.9 (3.5-5.1) mmol/L Chloride 104 (98-107) mmol/L Carbon Dioxide 27 (22-30) mmol/L Anion Gap 7 mmol/L BUN 27 H (9-20) mg/dL Creatinine 2.37 H (0.66-1.25) mg/dL Est GFR (CKD-EPI)AfAm 35 (>60 ml/min/1.73 sqM) Est GFR (CKD-EPI)NonAf 30 (>60 ml/min/1.73 sqM) Glucose 104 H (74-99) mg/dL Lactic Ac Sepsis Rflx Plasma Lactic Acid Maurisio 2.3 H* (0.7-2.0) mmol/L Calcium 9.3 (8.4-10.2) mg/dL Total Bilirubin 0.5 (0.2-1.3) mg/dL AST 38 (17-59) U/L ALT 18 (4-49) U/L Alkaline Phosphatase 92 (38-126) U/L Total Protein 6.8 (6.3-8.2) g/dL Albumin 3.9 (3.5-5.0) g/dL Urine Color Urine Appearance (Clear) Urine pH (5.0-8.0) Ur Specific [place] (1.001-1.035) Urine Protein (Negative) Urine Glucose (UA) (Negative) Urine Ketones (Negative) Urine Blood (Negative) Urine Nitrite (Negative) Urine Bilirubin (Negative) Urine Urobilinogen (<2.0) mg/dL Ur Leukocyte Esterase (Negative) Urine RBC (0-5) /hpf Urine WBC (0-5) /hpf Urine Mucus (None) /hpf 11/25/20 11/26/20 11/26/20 Range/Units 23:38 02:00 02:08 WBC (3.8-10.6) k/uL RBC (4.30-5.90) m/uL Hgb (13.0-17.5) gm/dL Hct (39.0-53.0) % MCV (80.0-100.0) fL MCH (25.0-35.0) pg MCHC (31.0-37.0) g/dL RDW (11.5-15.5) % Plt Count (150-450) k/uL MPV Neutrophils % % Lymphocytes % % Monocytes % % Eosinophils % % Basophils % % Neutrophils # (1.3-7.7) k/uL Lymphocytes # (1.0-4.8) k/uL Monocytes # (0-1.0) k/uL Eosinophils # (0-0.7) k/uL Basophils # (0-0.2) k/uL Macrocytosis Sodium (137-145) mmol/L Potassium (3.5-5.1) mmol/L Chloride (98-107) mmol/L Carbon Dioxide (22-30) mmol/L Anion Gap mmol/L BUN (9-20) mg/dL Creatinine (0.66-1.25) mg/dL Est GFR (CKD-EPI)AfAm (>60 ml/min/1.73 sqM) Est GFR (CKD-EPI)NonAf (>60 ml/min/1.73 sqM) Glucose (74-99) mg/dL Lactic Ac Sepsis Rflx Y Plasma Lactic Acid Maurisio 0.8 (0.7-2.0) mmol/L Calcium (8.4-10.2) mg/dL Total Bilirubin (0.2-1.3) mg/dL AST (17-59) U/L ALT (4-49) U/L Alkaline Phosphatase (38-126) U/L Total Protein (6.3-8.2) g/dL Albumin (3.5-5.0) g/dL Urine Color Light Yellow Urine Appearance Clear (Clear) Urine pH 6.0 (5.0-8.0) Ur Specific [place] 1.013 (1.001-1.035) Urine Protein Negative (Negative) Urine Glucose (UA) Negative (Negative) Urine Ketones Negative (Negative) Urine Blood Small H (Negative) Urine Nitrite Negative (Negative) Urine Bilirubin Negative (Negative) Urine Urobilinogen <2.0 (<2.0) mg/dL Ur Leukocyte Esterase Negative (Negative) Urine RBC 21 H (0-5) /hpf Urine WBC <1 (0-5) /hpf Urine Mucus Rare H (None) /hpf Disposition Clinical Impression: CKD (chronic kidney disease), Constipation Disposition: HOME SELF-CARE Condition: Fair Instructions (If sedation given, give patient instructions): Constipation (ED) Is patient prescribed a controlled substance at d/c from ED?: No Referrals: Joni Reina DO [Primary Care Provider] - 1-2 days
[2020-11-25 23:19] LABS: Basophils # (A) 0.1 k/uL (0-0.2); Basophils % (A) 1 %; Eosinophils # (A) 0.2 k/uL (0-0.7); Eosinophils % (A) 2 %; HGB 13.3 gm/dL (13.0-17.5); Lymphocytes # (A) 1.4 k/uL (1.0-4.8); Lymphocytes % (A) 19 %; MCH 34.2 pg (25.0-35.0); MCHC 33.2 g/dL (31.0-37.0); Macrocytosis Slight; Mean Platelet Volume 7.5; Monocytes # (A) 0.4 k/uL (0-1.0); Monocytes % (A) 6 %; Neutrophils # (A) 5.2 k/uL (1.3-7.7); Neutrophils % (A) 71 %; Platelet Count 272 k/uL (150-450); RBC 3.88 m/uL (4.30-5.90); RDW 14.2 % (11.5-15.5); WBC 7.4 k/uL (3.8-10.6)
[2020-11-25 23:28] LABS: Albumin 3.9 g/dL (3.5-5.0); Calcium 9.3 mg/dL (8.4-10.2); Potassium 4.9 mmol/L (3.5-5.1); Total Bilirubin 0.5 mg/dL (0.2-1.3); Total Protein 6.8 g/dL (6.3-8.2)
[2020-11-25] MEDS ORDERED: SODIUM CHLORIDE 0.9% 1,000 ML IV ONE (23:56)
[2020-11-26] MEDS ORDERED: KETAMINE 50 MG/ML 10 ML VIAL IM ONE (01:06)
[2020-11-26 02:13] VITALS: BP 162/90; PULSE 87; RESP 18
[2020-11-26 02:36] LABS: Appearance,Urine Clear (Clear); Bilirubin,Urine Negative (Negative); Blood,Urine Small (Negative); Color,Urine Light Yellow; Glucose,Urine (UA) Negative (Negative); Ketones,Urine Negative (Negative); Leukocyte Esterase,Urine Negative (Negative); Mucus,Urine Rare /hpf; Nitrite,Urine Negative (Negative); Protein,Urine Negative (Negative); RBC,Urine 21 /hpf (0-5); Specific Gravity,Urine 1.013 (1.001-1.035); Urobilinogen,Urine <2.0 mg/dL (<2.0); WBC,Urine <1 /hpf (0-5)
--- NOTE | 2020-11-26 02:45 | CT ---
EXAM: CT Abdomen and Pelvis Without Intravenous Contrast CLINICAL HISTORY: ITS.REASON CT Reason: suspected flank pain. fever. Pt. has down syndrome and Alzheimers. TECHNIQUE: Axial computed tomography images of the abdomen and pelvis without intravenous contrast. CTDI is 7.7 mGy and DLP is 382.1 mGy-cm. This CT exam was performed using one or more of the following dose reduction techniques: automated exposure control, adjustment of the mA and/or kV according to patient size, and/or use of iterative reconstruction technique. COMPARISON: No relevant prior studies available. FINDINGS: Lung bases: Mosaic attenuation in the lung bases. May reflect areas of atelectasis and scattered air trapping versus mild atelectasis/airspace disease. Mediastinum: Small hiatal hernia and/or distal esophageal wall thickening. Wall thickening appears circumferential and possibly irregular. Few small adjacent nodes. ABDOMEN: Liver: Unremarkable. Gallbladder and bile ducts: Unremarkable. No calcified stones. No ductal dilation. Pancreas: Unremarkable. No ductal dilation. Spleen: Unremarkable. No splenomegaly. Adrenals: Slightly nodular right adrenal gland. Left adrenal gland appears normal Kidneys and ureters: Multiple nonobstructing bilateral renal calculi. No obstructing calculus or hydronephrosis. Lobular renal contours. No obvious discrete lesion, although somewhat limited evaluation on noncontrast study. Stomach and bowel: Large amount of stool within the rectosigmoid colon as well as most of the rest of the colon. Rectum distended to 6.5 cm. Mild surrounding fat stranding. No mucosal thickening. PELVIS: Appendix: No findings to suggest acute appendicitis. Bladder: Unremarkable. No stones. Reproductive: Unremarkable as visualized. ABDOMEN and PELVIS: Intraperitoneal space: Unremarkable. No free air. No significant fluid collection. Bones/joints: Old right posterior rib fracture deformities. No dislocation. Soft tissues: Unremarkable. Vasculature: Unremarkable. No abdominal aortic aneurysm. Lymph nodes: See above. IMPRESSION: 1. Multiple nonobstructing bilateral renal calculi. No obstructing calculus or hydronephrosis. 2. Large amount of stool within the rectosigmoid colon and mild surrounding fat stranding. Correlate for fecal impaction/stercoral colitis. 3. Small hiatal hernia and/or distal esophageal wall thickening. Wall thickening appears circumferential and possibly irregular. Few small adjacent nodes. Consider further evaluation/endoscopy. Malignancy not excluded. 4. Mosaic attenuation in the lung bases. May reflect areas of atelectasis and scattered air trapping versus mild atelectasis/airspace disease.
[2020-11-26] MEDS ORDERED: PEG 3350-NA SULF,BICARB,CL/KCL 4,000 ML BOTTLE PO ONE (04:30)
== END 2020-11-26 04:22 | disposition home or self-care (01) ==
LOC: EC 21:57
DX: N18.9 Chronic kidney disease, unspecified (principal); K59.00 Constipation, unspecified; F02.80 Dementia in other diseases classified elsewhere, unspecified severity, without behavioral disturbance, psychotic disturbance, mood disturbance, and anxiety
CPT/HCPCS: 36415; 74176; 80053; 81001; 83605; 85025; 96372; 99284

== ENCOUNTER 2022-09-17 21:14 | Inpatient (IN) | payer MEDICARE, OTHER ==
--- NOTE | 2022-09-17 22:00 | ED ---
General Adult HPI - General Chief complaint: Upper Respiratory Infection Stated complaint: Difficulty Breathing, Cough Time Seen by Provider: 09/17/22 21:33 Source: family, Caregiver Mode of arrival: ambulatory Limitations: altered mental status, physical limitation - History of Present Illness Initial comments: Dictation was produced using [employer] dictation software. please excuse any grammatical, word or spelling errors. Chief Complaint: 52-year-old male presents to emergency room for 2 weeks of cough congestion History of Present Illness: 52-year-old male presents to the emergency room for 2 weeks with cough and congestion. Patient unable to provide history at this time. Secondary to mental status. Gas Regulator Repairer at the bedside phthisis are present illness. States that he's had a cough for 2 weeks. Over the last 3-4 days he's been a lot more cleaning than usual. Patient has not showed any signs of respiratory distress. Gas Regulator Repairer concerned that he is coming down again with pneumonia. The ROS documented in this emergency department record has been reviewed and confirmed by me. Those systems with pertinent positive or negative responses have been documented in the HPI. All other systems are other negative and/or noncontributory. PHYSICAL EXAM: General Impression: Alert, not in acute distress HEENT: Normocephalic atraumatic, extra-ocular movements intact, pupils equal and reactive to light bilaterally, mucous membranes moist. Cardiovascular: Heart regular rate and rhythm Chest: No wheezings, no rhonchi no Rales. Lung auscultation difficult due to patient making a lot of noise. No retractions, no tachypnea Abdomen: abdomen soft, non-tender, non-distended, no organomegaly Musculoskeletal: Pulses present and equal in all extremities, no peripheral edema Motor: no focal deficits noted Neurological: no focal motor or sensory deficits noted Skin: Intact with no visualized rashes ED course: 52-year-old male presents emergency Department with academic department chair for worsening cough and congestion for the last 2 weeks. Vital signs upon arrival are within acceptable limits. Patient not showing signs of significant distress. Nursing notes and chart review was performed Patient's well-appearing at the bedside and showed no signs of significant distress. Not hypotensive. No concerns for septic shock at this time. Was pt. sent in by a medical professional or institution (, PA, PAYROLL OFFICER, urgent care, hospital, or residential...) When possible be specific @ -No Did you speak to anyone other than the patient for history (EMS, parent, family, police, friend...)? What history was obtained from this source @ -Immersion Metal Cleaner at the bedside Did you review nursing and triage notes (agree or disagree)? Why? @ -I reviewed and agree with nursing and triage notes Were old charts reviewed (outside hosp., previous admission, EMS record, old EKG, old radiological studies, urgent care reports/EKG's, residential records)? Report findings @ -No old charts were reviewed Differential Diagnosis (chest pain, altered mental status, abdominal pain women, abdominal pain men, vaginal bleeding, musculoskeletal, weakness, fever, dyspnea, syncope, headache, dizziness, GI bleed, back pain, seizure, CVA, palpatations, mental health)? @ -Differential Dyspnea: Coronary syndrome, arrhythmia, tamponade, asthma, COPD, pulmonary embolism, pneumonia, pneumothorax, pulmonary effusion, anaphylaxis, diabetic ketoacidosis, flailed chest, pulmonary contusion, diaphragmatic rupture, anemia, neuromuscular, this is not meant to be an all-inclusive list. EKG interpreted by me (3pts min.). @ -None done X-rays interpreted by me (1pt min.). @ -Left-sided infiltrate CT interpreted by me (1pt min.). @ -None done U/S interpreted by me (1pt. min.). @ -None done What testing was considered but not performed or refused? (CT, X-rays, U/S, labs)? Why? @ -None What meds were considered but not given or refused? Why? @ -None Did you discuss the management of the patient with other professionals (professionals i.e. , PA, PAYROLL OFFICER, lab, RT, psych nurse, delinquency prevention social worker, fiction writer, teacher, strike operations officer, outpatient case manager)? Give summary @ -Discussed with Dr. Saleh for admission Was smoking cessation discussed for >3mins.? @ -No Was critical care preformed (if so, how long)? @ -No Were there social determinants of health that impacted care today? How? (Homelessness, low income, unemployed, alcoholism, drug addiction, transportation, low edu. Level, literacy, decrease access to med. care, skilled nursing, rehab)? @ -No Was there de-escalation of care discussed even if they declined (Discuss DNR or withdrawal of care, Hospice)? DNR status @ -No What co-morbidities impacted this encounter? (DM, HTN, Smoking, COPD, CAD, Cancer, CVA, ARF, Chemo, Hep., AIDS, mental health diagnosis, sleep apnea, morbid obesity)? @ -Autism, Down syndrome Was patient admitted / discharged? Hospital course, mention meds given and route, prescriptions, significant lab abnormalities, going to OR and other pertinent info. @ -42-year-old male presents emergency Department with chief complaint of cough and congestion. He has history of autism and Down syndrome. Patient vital signs within acceptable limits. X-ray shows left-sided pneumonia. White count elevated 23.1. Patient has significant comorbidities which warrants admission for medical monitoring. Patient be admitted. Pulmonology consult it. Started on pneumonia antibiotics. Undiagnosed new problem with uncertain prognosis? @ -No Drug Therapy requiring intensive monitoring for toxicity (Heparin, Nitro, Insulin, Cardizem)? @ -No Were any procedures done? @ -No Diagnosis/symptom? Acute, or Chronic, or Acute on Chronic? Uncomplicated (without systemic symptoms) or Complicated (systemic symptoms)? @ -1. Acute community acquired pneumonia Side effects of treatment? @ -No Exacerbation, Progression, or Severe Exacerbation? @ -No Poses a threat to life or bodily function? How? (Chest pain, [place], [place], pneumonia, PE, COPD, DKA, ARF, appy, cholecystitis, CVA, Diverticulitis, Homicidal, Suicidal, threat to staff... and all critical care pts) @ -yes - Related Data Home Medications Medication Instructions Recorded Confirmed Ferrous Sulfate [Iron (65 MG 325 mg PO TID 06/01/18 09/05/20 Elemental)] allopurinoL [Zyloprim] 200 mg PO DAILY 06/01/18 09/05/20 hydrOXYzine HCL [Atarax] 25 mg PO HS 06/01/18 09/05/20 Cholecalciferol (Vitamin D3) 50 mcg PO Q48H 07/26/19 09/05/20 [Vitamin D3] QUEtiapine [SEROquel] 50 mg PO HS 07/26/19 09/05/20 Previous Rx's Medication Instructions Recorded Doxycycline [Vibramycin] 100 mg PO BID #10 cap 09/08/20 Allergies Allergy/AdvReac Type Severity Reaction Status Date / Time amoxicillin AdvReac Unknown Verified 09/17/22 21:27 Review of Systems ROS Statement: Those systems with pertinent positive or pertinent negative responses have been documented in the HPI. ROS Other: All systems not noted in ROS Statement are negative. Past Medical History Past Medical History: Dementia, Skin Disorder Additional Past Medical History / Comment(s): Down syndrom and autism, kidney issues, cardiac cushion defects, gout arthritis and psoriasis pnuemonia years ago with pneumothorax. History of Any Multi-Drug Resistant Organisms: None Reported Past Surgical History: No Surgical Hx Reported Past Anesthesia/Blood Transfusion Reactions: Unable to Obtain Past Psychological History: Anxiety Smoking Status: Never smoker Past Alcohol Use History: None Reported Past Drug Use History: None Reported - Past Family History Sister(s) Family Medical History: Hypertension Father Family Medical History: CVA/TIA Additional Family Medical History / Comment(s): Parkinsons General Exam Limitations: altered mental status, physical limitation Course Vital Signs 09/17/22 21:19 Temperature 99.5 F Pulse Rate 58 L Respiratory 22 Rate Blood Pressure 123/79 O2 Sat by Pulse 92 L Oximetry Medical Decision Making - Lab Data Result diagrams: 09/17/22 22:07 Lab Results 09/17/22 09/17/22 Range/Units 21:42 22:07 WBC 23.1 H (3.8-10.6) k/uL RBC 3.23 L (4.30-5.90) m/uL Hgb 9.2 L (13.0-17.5) gm/dL Hct 30.3 L (39.0-53.0) % MCV 94.0 (80.0-100.0) fL MCH 28.6 (25.0-35.0) pg MCHC 30.4 L (31.0-37.0) g/dL RDW 20.6 H (11.5-15.5) % Plt Count 434 (150-450) k/uL MPV 8.8 Neutrophils % 94 % Lymphocytes % 3 % Monocytes % 2 % Eosinophils % 0 % Basophils % 0 % Neutrophils # 21.7 H (1.3-7.7) k/uL Lymphocytes # 0.8 L (1.0-4.8) k/uL Monocytes # 0.5 (0-1.0) k/uL Eosinophils # 0.0 (0-0.7) k/uL Basophils # 0.1 (0-0.2) k/uL Hypochromasia Moderate Anisocytosis Moderate Macrocytosis Slight Influenza Type A (PCR) Not Detected (Not Detectd) Influenza Type B (PCR) Not Detected (Not Detectd) RSV (PCR) Not Detected (Not Detectd) SARS-CoV-2 (PCR) Not Detected (Not Detectd) Disposition Clinical Impression: Pneumonia Disposition: ADMITTED IP TO THIS [facility] Condition: Fair Referrals: Nonstaff,Physician [REFERRING] - 1-2 days Decision Time: 23:31
--- NOTE | 2022-09-17 22:12 | XR ---
EXAMINATION TYPE: XR chest 2V DATE OF EXAM: 09/17/2022 COMPARISON: NONE HISTORY: Cough and congestion TECHNIQUE: FINDINGS: There is coarse interstitial density in the lungs. This is mainly in the left lower lobe. N o heart failure. There are no hilar masses. IMPRESSION: There is left-sided interstitial pneumonia. There is improvement in right lower lobe pneu monia compared to old exam.
[2022-09-17 22:23] LABS: Anisocytosis Moderate; Basophils # (A) 0.1 k/uL (0-0.2); Basophils % (A) 0 %; Eosinophils % (A) 0 %; HCT 30.3 % (39.0-53.0); HGB 9.2 gm/dL (13.0-17.5); Hypochromasia Moderate; Lymphocytes # (A) 0.8 k/uL (1.0-4.8); Lymphocytes % (A) 3 %; MCH 28.6 pg (25.0-35.0); MCHC 30.4 g/dL (31.0-37.0); Macrocytosis Slight; Mean Platelet Volume 8.8; Monocytes # (A) 0.5 k/uL (0-1.0); Monocytes % (A) 2 %; Neutrophils # (A) 21.7 k/uL (1.3-7.7); Neutrophils % (A) 94 %; Platelet Count 434 k/uL (150-450); RBC 3.23 m/uL (4.30-5.90); RDW 20.6 % (11.5-15.5); WBC 23.1 k/uL (3.8-10.6)
[2022-09-17] MEDS ORDERED: AZITHROMYCIN 500 MG in SODIUM CHLORIDE 0.9% 250 ML IVPB STA ×2 (23:05→23:25)
[2022-09-17] MEDS ORDERED: cefTRIAXone IN SWFI 1,000 MG/10 ML SYRINGE IVP ONE (23:15)
[2022-09-17] MEDS ORDERED: PNEUMONIA PROTOCOL UTILIZED 1 EACH MISC PO PRN (23:25)
[2022-09-17] MEDS ORDERED: SODIUM CHLORIDE 0.9% 1,000 ML IV SCH (23:30)
[2022-09-18 00:38] LABS: Calcium 8.5 mg/dL (8.4-10.2); Potassium 4.9 mmol/L (3.5-5.1)
[2022-09-18] MEDS ORDERED: LORazepam 2 MG/ML INJ IV PRN (00:52)
[2022-09-18] MEDS: ACETAMINOPHEN TAB 325 MG TAB PO PRN (01:05)
[2022-09-18] MEDS ORDERED: TRIAMCINOLONE 0.1% CREAM 80 GM TUBE TOPICAL PRN (11:29)
--- NOTE | 2022-09-18 11:52 | P.CNPUL ---
History of Present Illness Consult date: 09/18/22 Requesting physician: Ayush Saleh Reason for consult: dyspnea, abnormal CXR/CT Chief complaint: Shortness of breath History of present illness: This is a 52-year-old male patient with history of gout, hyperlipidemia, Down syndrome and autism. He was brought in to the emergency room yesterday with noted increasing shortness of breath and cough per the caretakers. Chest x-ray revealed some left-sided interstitial pneumonia. White count 20.1. Hemoglobin 9.2. Platelets 434. Sodium 143. Potassium 4.9. Bicarb 20. BUN 32. Creatinine 2.45. Glucose 1. Influenza screen negative. RSV screen negative. COVID-19 screen negative. He's been initiated on ceftriaxone and azithromycin. He is seen today in consultation on the regular medical floor. He is currently resting comfortably in bed. Caretakers at the bedside. He is maintaining good O2 saturations in the 90s on room air. Currently afebrile. He did have a T-max of 101.2. Review of Systems ROS unobtainable: due to mental status Past Medical History Past Medical History: Dementia, Skin Disorder Additional Past Medical History / Comment(s): Down syndrome and autism, kidney issues, cardiac cushion defects, gout arthritis and psoriasis pnuemonia years ago with pneumothorax. History of Any Multi-Drug Resistant Organisms: None Reported Past Surgical History: No Surgical Hx Reported Past Anesthesia/Blood Transfusion Reactions: Unable to Obtain Past Psychological History: Anxiety Smoking Status: Never smoker Past Alcohol Use History: None Reported Past Drug Use History: None Reported - Past Family History Sister(s) Family Medical History: Hypertension Father Family Medical History: CVA/TIA Additional Family Medical History / Comment(s): Parkinsons Medications and Allergies Home Medications Medication Instructions Recorded Confirmed Type Ferrous Sulfate [Iron (65 MG 325 mg PO DAILY 06/01/18 09/18/22 History Elemental)] allopurinoL [Zyloprim] 200 mg PO DAILY 06/01/18 09/18/22 History hydrOXYzine HCL [Atarax] 25 mg PO HS 06/01/18 09/18/22 History Cholecalciferol (Vitamin D3) 50 mcg PO Q48H 07/26/19 09/18/22 History [Vitamin D3] QUEtiapine [SEROquel] 50 mg PO HS 07/26/19 09/18/22 History Atorvastatin [Lipitor] 20 mg PO HS 09/18/22 09/18/22 History Furosemide [Lasix] 20 mg PO DAILY 09/18/22 09/18/22 History Memantine [Namenda] 10 mg PO BID 09/18/22 09/18/22 History Triamcinolone 0.1% Cream [Kenalog 1 applicatio TOPICAL BID PRN 09/18/22 09/18/22 History 0.1% Cream] Allergies Allergy/AdvReac Type Severity Reaction Status Date / Time amoxicillin AdvReac Unknown Verified 09/18/22 10:35 Physical Exam Vitals: Vital Signs Temp Pulse Pulse Resp BP BP BP 09/18/22 07:37 98.8 F 67 16 95/53 97/59 09/18/22 02:05 98.9 F 09/18/22 00:47 101.2 F H 09/18/22 00:10 22 09/17/22 21:19 99.5 F 58 L 22 123/79 Pulse Ox 09/18/22 07:37 94 L 09/18/22 02:05 09/18/22 00:47 09/18/22 00:10 09/17/22 21:19 92 L Intake and Output 09/17/22 09/18/22 09/18/22 22:59 06:59 14:59 Intake Total 120 Balance 120 Intake: Oral 120 Other: Voiding Method Diaper Diaper Incontinent Incontinent # Voids 2 Weight 48.988 kg 48.988 kg GENERAL EXAM: Alert, nonverbal, 52-year-old male patient on room air, features of Down syndrome, comfortable in no apparent distress. HEAD: Normocephalic. EYES: Normal reaction of pupils, equal size. NOSE: Clear with pink turbinates. THROAT: No erythema or exudates. NECK: No masses, no JVD. CHEST: No chest wall deformity. LUNGS: Equal air entry with few scattered rhonchi on the right. CVS: S1 and S2 normal with no audible murmur, regular rhythm. ABDOMEN: No hepatosplenomegaly, normal bowel sounds, no guarding or rigidity. SPINE: No scoliosis or deformity SKIN: No rashes CENTRAL NERVOUS SYSTEM: No focal deficits, tone is normal in all 4 extremities. EXTREMITIES: There is no peripheral edema. No clubbing, no cyanosis. Peripheral pulses are intact. Results - Laboratory Findings CBC and BMP: 09/17/22 22:07 09/17/22 22:07 Abnormal lab findings: Abnormal Labs 09/17/22 09/17/22 22:07 22:07 WBC 23.1 H RBC 3.23 L Hgb 9.2 L Hct 30.3 L MCHC 30.4 L RDW 20.6 H Neutrophils # 21.7 H Lymphocytes # 0.8 L Chloride 111 H BUN 32 H Creatinine 2.45 H Glucose 108 H - Diagnostic Findings Chest x-ray: image reviewed Assessment and Plan Assessment: Acute community-acquired pneumonia more so on the left lung Down syndrome Autism History of gout History psoriasis Hypertension Congenital cardiac defects Nonverbal, resides in foster care setting Plan: The patient was seen and evaluated Chest x-ray, labs and medications reviewed Currently stable and on room air Continue antibiotics Follow-up chest x-ray in a.m. We will continue to follow and make further recommendations based on his clinical status I have personally seen and examined the patient, performed the documentation and the assessment and plan as written. Number of minutes spent on the visit: 20.
[2022-09-18] MEDS: allopurinoL 100 MG TAB PO SCH (12:50)
--- NOTE | 2022-09-18 19:02 | P.HPIM ---
History of Present Illness H&P Date: 09/18/22 Chief Complaint: Cough congestion This is a 52-year-old patient follows with visiting physicians Dr. William. History is obtained by patient's care provider back at the bedside. Patient's sister Nanette Llanos is the guardian At the baseline: Patient is able to feed himself. Able to walk. Does get a BE. Does not talk. Has simple understanding of things. Has underlying diagnosis of Down syndrome/autism. For 3 years have some episodes of not cooperating and shouting at times. For last 10-14 days patient started having a cough. And the caregivers giving [id number] medications for the same. Last night decided not to take any cough syrup. Yesterday developed chills, congested productive cough. Tired, decrease oral intake. Overnight he had this morning was given Ativan. Review of systems: Patient himself is not able to give any history Past medical history to include: Cognitive impairment, Down syndrome, autism, chronic kidney disease, cardiac defects cringe and Nitrol, Cartia arthritis, psoriasis Social history: Patient has a caregiver called Pitts. Lives at the [facility] Nanette Llanos sister: Guardian Physical examination: VITAL SIGNS: [101.2, 70, 20, 10 6 x 60, 98% room air GENERAL: BMI 24.2, laying in bed tired sleepy. EYES: Pupils equal. Conjunctiva normal. HEENT: External appearance of nose and ears normal, oral cavity grossly normal. NECK: JVD not raised; masses not palpable. HEART: First and second heart sounds are normal; no edema. LUNGS: Respiratory rate increased coarse breath sounds. ABDOMEN: Soft, nontender, liver spleen not palpable, no masses palpable. PSYCH: Patient does not talkl. MUSCULOSKELETAL:No Clubbing/cyanosis;muscles-grossly intact NEUROLOGICAL: Cranial nerves grossly intact; no facial asymmetry, power and sensation grossly intact. LYMPHATICS: No lymph nodes palpable in the axilla and neck INVESTIGATIONS, reviewed in the clinical context: White count 23.1 hemoglobin 9.2 platelets 434 potassium 4.9 BUN 32 creatinine 2.45. Lactic acid 2.3 Influenza type A,b, RSV, COVID-19: Not detected EKG tracing personally reviewed by me-sinus tachycardia. Nonspecific ST/T-wave changes. Chest x-ray film personally reviewed by [id number] infiltrate Previous labs: Creatinine 2.November Assessment and plan: -Pneumonia suspect gram-negative organism. Causing sepsis IV ceftriaxone -Sepsis secondary to pneumonia IV ceftriaxone -Severe cognitive impairment from underlying Down syndrome and autism Patient is nonverbal -Down syndrome autism -Hyperuricemia Allopurinol -Hyperlipidemia Lipitor 20 mg daily at bedtime -Nanette Llanos [sister]: Guardian IV ceftriaxone. IV fluids. Home medications resumed. Care was discussed the care your the bedside. Questions answered. - Past Medical History Past Medical History: Dementia, Skin Disorder Additional Past Medical History / Comment(s): Down syndrome and autism, kidney issues, cardiac cushion defects, gout arthritis and psoriasis pnuemonia years ago with pneumothorax. History of Any Multi-Drug Resistant Organisms: None Reported Past Surgical History: No Surgical Hx Reported Past Anesthesia/Blood Transfusion Reactions: Unable to Obtain Past Psychological History: Anxiety Smoking Status: Never smoker Past Alcohol Use History: None Reported Past Drug Use History: None Reported - Past Family History Sister(s) Family Medical History: Hypertension Father Family Medical History: CVA/TIA Additional Family Medical History / Comment(s): Parkinsons Medications and Allergies Home Medications Medication Instructions Recorded Confirmed Type Ferrous Sulfate [Iron (65 MG 325 mg PO DAILY 06/01/18 09/18/22 History Elemental)] allopurinoL [Zyloprim] 200 mg PO DAILY 06/01/18 09/18/22 History hydrOXYzine HCL [Atarax] 25 mg PO HS 06/01/18 09/18/22 History Cholecalciferol (Vitamin D3) 50 mcg PO Q48H 07/26/19 09/18/22 History [Vitamin D3] QUEtiapine [SEROquel] 50 mg PO HS 07/26/19 09/18/22 History Atorvastatin [Lipitor] 20 mg PO HS 09/18/22 09/18/22 History Furosemide [Lasix] 20 mg PO DAILY 09/18/22 09/18/22 History Memantine [Namenda] 10 mg PO BID 09/18/22 09/18/22 History Triamcinolone 0.1% Cream [Kenalog 1 applicatio TOPICAL BID PRN 09/18/22 09/18/22 History 0.1% Cream] Allergies Allergy/AdvReac Type Severity Reaction Status Date / Time amoxicillin AdvReac Unknown Verified 09/18/22 10:35 Physical Exam Vitals: Vital Signs Temp Pulse Pulse Resp BP BP BP 09/18/22 07:37 98.8 F 67 16 95/53 97/59 09/18/22 02:05 98.9 F 09/18/22 00:47 101.2 F H 09/18/22 00:10 22 09/17/22 21:19 99.5 F 58 L 22 123/79 Pulse Ox 09/18/22 07:37 94 L 09/18/22 02:05 09/18/22 00:47 09/18/22 00:10 09/17/22 21:19 92 L Intake and Output 09/17/22 09/18/22 09/18/22 22:59 06:59 14:59 Intake Total 120 Balance 120 Intake: Oral 120 Other: Voiding Method Diaper Diaper Incontinent Incontinent # Voids 2 Weight 48.988 kg 48.988 kg Results CBC & Chem 7: 09/17/22 22:07 09/17/22 22:07 Labs: Abnormal Lab Results - Last 24 Hours (Table) 09/17/22 09/17/22 Range/Units 22:07 22:07 WBC 23.1 H (3.8-10.6) k/uL RBC 3.23 L (4.30-5.90) m/uL Hgb 9.2 L (13.0-17.5) gm/dL Hct 30.3 L (39.0-53.0) % MCHC 30.4 L (31.0-37.0) g/dL RDW 20.6 H (11.5-15.5) % Neutrophils # 21.7 H (1.3-7.7) k/uL Lymphocytes # 0.8 L (1.0-4.8) k/uL Chloride 111 H (98-107) mmol/L BUN 32 H (9-20) mg/dL Creatinine 2.45 H (0.66-1.25) mg/dL Glucose 108 H (74-99) mg/dL Thrombosis Risk Factor Assmnt - Choose All That Apply Any of the Below Risk Factors Present?: Yes Each Factor Represents 1 point: Age 41-60 years, Serious lung disease incl. pneumonia (< 1month) Thrombosis Risk Factor Assessment Total Risk Factor Score: 2 Thrombosis Risk Factor Assessment Level: Low Risk
[2022-09-18] MEDS: MEMANTINE 10 MG TAB PO SCH (21:56)
[2022-09-18] MEDS: ENOXAPARIN 30 MG/0.3 ML SYRINGE SQ SCH (21:56)
[2022-09-18] MEDS: QUEtiapine 50 MG TAB PO SCH (21:56)
[2022-09-18] MEDS: ATORVASTATIN 20 MG TAB PO SCH (21:56)
[2022-09-18] MEDS: DEXTROSE 5%-0.45% NACL 1,000 ML IV SCH (21:57)
[2022-09-18] MEDS: AZITHROMYCIN 500 MG in SODIUM CHLORIDE 0.9% 250 ML IVPB SCH (22:57)
[2022-09-19] MEDS: DEXTROSE 5%-0.45% NACL 1,000 ML IV SCH ×3 (06:02→20:43)
[2022-09-19 06:23] LABS: Anisocytosis Moderate; Basophils % (A) 0 %; Eosinophils # (A) 0.1 k/uL (0-0.7); Eosinophils % (A) 1 %; HCT 26.1 % (39.0-53.0); Hypochromasia Marked; Lymphocytes # (A) 1.8 k/uL (1.0-4.8); Lymphocytes % (A) 11 %; MCH 28.9 pg (25.0-35.0); MCHC 30.4 g/dL (31.0-37.0); MCV 94.9 fL (80.0-100.0); Macrocytosis Slight; Mean Platelet Volume 8.2; Monocytes # (A) 0.5 k/uL (0-1.0); Monocytes % (A) 3 %; Neutrophils # (A) 13.5 k/uL (1.3-7.7); Neutrophils % (A) 84 %; Platelet Count 361 k/uL (150-450); RBC 2.75 m/uL (4.30-5.90); RDW 21.1 % (11.5-15.5); WBC 16.2 k/uL (3.8-10.6)
[2022-09-19 06:39] LABS: African American GFR (CKD) 30 (>60 ml/min/1.73 sqM); Anion Gap 5 mmol/L; Blood Urea Nitrogen 36 mg/dL (9-20); Calcium 7.4 mg/dL (8.4-10.2); Carbon Dioxide 24 mmol/L (22-30); Chloride 112 mmol/L (98-107); Glucose 115 mg/dL (74-99); Non-African American GFR(CKD) 26 (>60 ml/min/1.73 sqM); Potassium 4.5 mmol/L (3.5-5.1); Sodium 141 mmol/L (137-145)
--- NOTE | 2022-09-19 07:49 | XR ---
EXAMINATION TYPE: XR chest 1V DATE OF EXAM: 09/19/2022 COMPARISON: 09/17/2022 HISTORY: 52-year-old male pneumonia, cough TECHNIQUE: Single frontal view of the chest is obtained. FINDINGS: Heart is mildly enlarged. Hyperinflation. Worsening bilateral perihilar airspace disease. Additional worsening bibasilar airspace disease and increasing diffuse interstitial change. No pleura l effusion. IMPRESSION: COPD with worsening bilateral interstitial and airspace disease. Correlate for atypical or multifocal pneumonia.
[2022-09-19] MEDS: CHOLECALCIFEROL 25 MCG (1000 IU) TABLET PO SCH (08:49)
[2022-09-19] MEDS: ENOXAPARIN 30 MG/0.3 ML SYRINGE SQ SCH (08:49)
[2022-09-19] MEDS: allopurinoL 100 MG TAB PO SCH (08:49)
[2022-09-19] MEDS: FERROUS SULFATE 325 MG TAB PO SCH (08:49)
[2022-09-19] MEDS: MEMANTINE 10 MG TAB PO SCH (08:49)
--- NOTE | 2022-09-19 13:02 | P.PN ---
Subjective Progress Note Date: 09/19/22 This is a 52-year-old male patient with history of gout, hyperlipidemia, Down syndrome and autism. He was brought in to the emergency room yesterday with noted increasing shortness of breath and cough per the caretakers. Chest x-ray revealed some left-sided interstitial pneumonia. White count 20.1. Hemoglobin 9.2. Platelets 434. Sodium 143. Potassium 4.9. Bicarb 20. BUN 32. Creatinine 2.45. Glucose 1. Influenza screen negative. RSV screen negative. COVID-19 screen negative. He's been initiated on ceftriaxone and azithromycin. He is seen today in consultation on the regular medical floor. He is currently resting comfortably in bed. Caretakers at the bedside. He is maintaining good O2 saturations in the 90s on room air. Currently afebrile. He did have a T-max of 101.2. Patient is seen today in 09/19/2022 in follow-up on the regular medical floor. He is currently awake and alert sitting up in bed. Caretakers at the bedside. Tolerating a diet. Chest x-ray today reveals COPD with worsening bilateral interstitial and airspace disease. Correlate for atypical or multifocal pneumonia. Blood cultures reveal no growth to date. White count 16.2. Hemoglobin 8.0. Sodium 141. Potassium 4.5. Bicarb 24. BUN 36. Creatinine 2.66. Glucose 1:15. Pro-calcitonin 53.2. He is continued on ceftriaxone and azithromycin. Currently afebrile. Hemodynamically stable. Objective - Vital Signs Vital signs: Vital Signs Temp 97.0 F L 09/18/22 17:57 Pulse 70 09/19/22 08:35 Resp 20 09/19/22 08:35 BP 106/60 09/18/22 17:57 Pulse Ox 95 09/18/22 23:25 FiO2 Intake & Output 09/18/22 09/19/22 09/19/22 18:59 06:59 18:59 Intake Total 840 Balance 840 Intake: Intake, IV Titration 300 Amount Azithromycin 500 mg In 250 Sodium Chloride 0.9% 250 ml @ 250 mls/hr IVPB Q24H [facility] Rx#:[id number] cefTRIAXone 2 gm In 50 Sodium Chloride 0.9% 50 ml @ 100 mls/hr IVPB Q24H [facility] Rx#:[id number] Oral 540 Other: Voiding Method Diaper Diaper Diaper Incontinent Incontinent Incontinent # Voids 3 2 - Exam GENERAL EXAM: Alert, nonverbal, 52-year-old male patient on room air, features of Down syndrome, comfortable in no apparent distress. HEAD: Normocephalic. EYES: Normal reaction of pupils, equal size. NOSE: Clear with pink turbinates. THROAT: No erythema or exudates. NECK: No masses, no JVD. CHEST: No chest wall deformity. LUNGS: Equal air entry with few scattered rhonchi bilaterally. CVS: S1 and S2 normal with no audible murmur, regular rhythm. ABDOMEN: No hepatosplenomegaly, normal bowel sounds, no guarding or rigidity. SPINE: No scoliosis or deformity SKIN: No rashes CENTRAL NERVOUS SYSTEM: No focal deficits, tone is normal in all 4 extremities. EXTREMITIES: There is no peripheral edema. No clubbing, no cyanosis. Peripheral pulses are intact. - Labs CBC & Chem 7: 09/19/22 05:36 09/19/22 05:36 Labs: Abnormal Lab Results - Last 24 Hours (Table) 09/19/22 09/19/22 09/19/22 Range/Units 05:36 05:36 05:36 WBC 16.2 H (3.8-10.6) k/uL RBC 2.75 L (4.30-5.90) m/uL Hgb 8.0 L (13.0-17.5) gm/dL Hct 26.1 L (39.0-53.0) % MCHC 30.4 L (31.0-37.0) g/dL RDW 21.1 H (11.5-15.5) % Neutrophils # 13.5 H (1.3-7.7) k/uL Chloride 112 H (98-107) mmol/L BUN 36 H (9-20) mg/dL Creatinine 2.66 H (0.66-1.25) mg/dL Glucose 115 H (74-99) mg/dL Calcium 7.4 L (8.4-10.2) mg/dL Procalcitonin 53.20 H (0.02-0.09) ng/mL Microbiology - Last 24 Hours (Table) 09/18/22 07:32 Blood Culture - Preliminary Blood No Growth after 24 hours 09/18/22 07:13 Blood Culture - Preliminary Blood No Growth after 24 hours Assessment and Plan Assessment: Acute community-acquired pneumonia bilaterally, pro-calcitonin 53. Cannot rule out aspiration though the patient is eating well. We'll plan for swallow evaluation Leukocytosis secondary to above Acute kidney injury suspecting secondary to dehydration Anemia Down syndrome Autism History of gout History psoriasis Hypertension Congenital cardiac defects Nonverbal, resides in foster care setting Plan: The patient was seen and evaluated Chest x-ray, labs and medications reviewed Currently stable and on room air Continue ceftriaxone and azithromycin for now Add bronchodilators Swallow evaluation We will continue to follow I have personally seen and examined the patient, performed the documentation and the assessment and plan as written. Number of minutes spent on the visit: 10.
--- NOTE | 2022-09-19 14:48 | P.PN ---
Progress Note - Text Progress Note Date: 09/19/22 Chief Complaint: Cough congestion This is a 52-year-old patient follows with visiting physicians Dr. William. History is obtained by patient's care provider back at the bedside. Patient's sister Nanette Llanos is the guardian At the baseline: Patient is able to feed himself. Able to walk. Does get a BE. Does not talk. Has simple understanding of things. Has underlying diagnosis of Down syndrome/autism. For 3 years have some episodes of not cooperating and shouting at times. For last 10-14 days patient started having a cough. And the caregivers giving [id number] medications for the same. Last night decided not to take any cough syrup. Yesterday developed chills, congested productive cough. Tired, decrease oral intake. Overnight he had this morning was given Ativan. Admitted with bilateral pneumonia. IV ceftriaxone. Causing sepsis 09/19/2022: Caregiver at the bedside. Had a good breakfast today. Sounds a bit less congested. IV ceftriaxone. IV fluids. Looks a bit more restful Active Medications Acetaminophen (Acetaminophen Tab 325 Mg Tab) 650 mg PO Q6HR PRN PRN Reason: Fever and/ or Pain Last Admin: 09/18/22 01:05 Dose: 650 mg Albuterol Sulfate (Albuterol Nebulized 2.5 Mg/3 Ml) 2.5 mg INHALATION RT-QID [facility] Allopurinol (Allopurinol 100 Mg Tab) 200 mg PO DAILY [facility] Last Admin: 09/19/22 08:49 Dose: 200 mg Atorvastatin Calcium (Atorvastatin 20 Mg Tab) 20 mg PO HS [facility] Last Admin: 09/18/22 21:56 Dose: 20 mg Cholecalciferol (Cholecalciferol 25 Mcg (1000 Iu) Tablet) 50 mcg PO Q48H [facility] Last Admin: 09/19/22 08:49 Dose: 50 mcg Enoxaparin Sodium (Enoxaparin 30 Mg/0.3 Ml Syringe) 30 mg SQ DAILY [facility] Last Admin: 09/19/22 08:49 Dose: 30 mg Ferrous Sulfate (Ferrous Sulfate 325 Mg Tab) 325 mg PO DAILY [facility] Last Admin: 09/19/22 08:49 Dose: 325 mg Ceftriaxone Sodium 2 gm/ (Sodium Chloride) 50 mls @ 100 mls/hr IVPB Q24H [facility]; Protocol Stop: 09/21/22 22:29 Last Admin: 09/18/22 21:56 Dose: 100 mls/hr Azithromycin 500 mg/ Sodium (Chloride) 250 mls @ 250 mls/hr IVPB Q24H [facility]; Protocol Stop: 09/19/22 22:59 Last Admin: 09/18/22 22:57 Dose: 250 mls/hr Dextrose/Sodium Chloride (Dextrose 5%-1/2ns Iv Soln) 1,000 mls @ 125 mls/hr IV .Q8H [facility] Last Admin: 09/19/22 14:02 Dose: 125 mls/hr Lorazepam (Lorazepam 2 Mg/Ml Inj) 0.5 mg IV Q8HR PRN PRN Reason: Anxiety Last Admin: 09/18/22 01:06 Dose: 0.5 mg Memantine (Memantine 5 Mg Tab) 5 mg PO BID [facility] Miscellaneous Information (Pneumonia Protocol Utilized 1 Each Misc) 1 each PO ONCE PRN PRN Reason: Per Protocol Quetiapine Fumarate (Quetiapine 50 Mg Tab) 50 mg PO HS [facility] Last Admin: 09/18/22 21:56 Dose: 50 mg Triamcinolone Acetonide (Triamcinolone 0.1% Cream 80 Gm Tube) 1 applic TOPICAL BID PRN; Protocol PRN Reason: Rash Past medical history to include: Cognitive impairment, Down syndrome, autism, chronic kidney disease, cardiac defects cringe and Nitrol, Cartia arthritis, psoriasis Social history: Patient has a caregiver called Hong. Lives at the [facility] Nanette Llanos sister: Guardian Physical examination: VITAL SIGNS: T-max 101.2, 88, 20, 144/68, 98% room air GENERAL: Laying in bed, eyes close, more comfortable EYES: Pupils equal. Conjunctiva normal. HEENT: External appearance of nose and ears normal, oral cavity grossly normal. NECK: JVD not raised; masses not palpable. HEART: First and second heart sounds are normal; no edema. LUNGS: Respiratory rate increased coarse breath sounds. ABDOMEN: Soft, nontender, liver spleen not palpable, no masses palpable. PSYCH: Patient does not talkl. INVESTIGATIONS, reviewed in the clinical context: September 19: White count 16.2 hemoglobin 8 potassium 4.5 BUN 36 creatinine 2.66 procalcitonin 53.2 White count 23.1 hemoglobin 9.2 platelets 434 potassium 4.9 BUN 32 creatinine 2.45. Lactic acid 2.3 Influenza type A,b, RSV, COVID-19: Not detected EKG tracing personally reviewed by me-sinus tachycardia. Nonspecific ST/T-wave changes. Chest x-ray film personally reviewed by [id number] infiltrate Previous labs: Creatinine 2.November Assessment and plan: -Pneumonia suspect gram-negative organism. Causing sepsis: Slow to respond IV ceftriaxone -Sepsis secondary to pneumonia: Slow to respond IV ceftriaxone -Severe cognitive impairment from underlying Down syndrome and autism Patient is nonverbal -Down syndrome autism -Chronic kidney disease stage III likely nephrosclerosis -Hyperuricemia Allopurinol -Hyperlipidemia Lipitor 20 mg daily at bedtime -Nanette Llanos [sister]: Guardian Continue IV ceftriaxone. IV fluids. Discussed with caregiver. -
[2022-09-19] MEDS: ALBUTEROL NEBULIZED 2.5 MG/3 ML INHALATION SCH ×2 (15:55→21:47)
[2022-09-19] MEDS: QUEtiapine 50 MG TAB PO SCH (20:43)
[2022-09-19] MEDS: ATORVASTATIN 20 MG TAB PO SCH (20:43)
[2022-09-19] MEDS: MEMANTINE 5 MG TAB PO SCH (20:43)
[2022-09-19] MEDS: AZITHROMYCIN 500 MG in SODIUM CHLORIDE 0.9% 250 ML IVPB SCH (21:20)
[2022-09-20] MEDS: DEXTROSE 5%-0.45% NACL 1,000 ML IV SCH ×3 (01:49→21:31)
[2022-09-20 04:43] LABS: Anisocytosis Moderate; Basophils # (A) 0.1 k/uL (0-0.2); Basophils % (A) 1 %; Eosinophils # (A) 0.1 k/uL (0-0.7); Eosinophils % (A) 1 %; HCT 26.8 % (39.0-53.0); Hypochromasia Marked; Lymphocytes # (A) 1.6 k/uL (1.0-4.8); Lymphocytes % (A) 18 %; MCH 28.6 pg (25.0-35.0); MCHC 29.8 g/dL (31.0-37.0); Macrocytosis Slight; Mean Platelet Volume 8.5; Monocytes # (A) 0.4 k/uL (0-1.0); Monocytes % (A) 4 %; Neutrophils # (A) 6.5 k/uL (1.3-7.7); Neutrophils % (A) 72 %; Platelet Count 375 k/uL (150-450); RBC 2.79 m/uL (4.30-5.90); RDW 21.6 % (11.5-15.5); WBC 9.1 k/uL (3.8-10.6)
[2022-09-20 06:46] LABS: African American GFR (CKD) 41 (>60 ml/min/1.73 sqM); Anion Gap 6 mmol/L; Blood Urea Nitrogen 27 mg/dL (9-20); Calcium 7.2 mg/dL (8.4-10.2); Carbon Dioxide 19 mmol/L (22-30); Chloride 116 mmol/L (98-107); Glucose 113 mg/dL (74-99); Non-African American GFR(CKD) 36 (>60 ml/min/1.73 sqM); Potassium 4.6 mmol/L (3.5-5.1); Sodium 141 mmol/L (137-145)
[2022-09-20] MEDS: ALBUTEROL NEBULIZED 2.5 MG/3 ML INHALATION SCH ×4 (09:04→20:49)
[2022-09-20] MEDS: MEMANTINE 5 MG TAB PO SCH ×2 (09:59→21:33)
[2022-09-20] MEDS: allopurinoL 100 MG TAB PO SCH (09:59)
[2022-09-20] MEDS: ENOXAPARIN 30 MG/0.3 ML SYRINGE SQ SCH (09:59)
[2022-09-20] MEDS: FERROUS SULFATE 325 MG TAB PO SCH (09:59)
--- NOTE | 2022-09-20 11:50 | P.PN ---
Subjective Progress Note Date: 09/20/22 This is a 52-year-old male patient with history of gout, hyperlipidemia, Down syndrome and autism. He was brought in to the emergency room yesterday with noted increasing shortness of breath and cough per the caretakers. Chest x-ray revealed some left-sided interstitial pneumonia. White count 20.1. Hemoglobin 9.2. Platelets 434. Sodium 143. Potassium 4.9. Bicarb 20. BUN 32. Creatinine 2.45. Glucose 1. Influenza screen negative. RSV screen negative. COVID-19 screen negative. He's been initiated on ceftriaxone and azithromycin. He is seen today in consultation on the regular medical floor. He is currently resting comfortably in bed. Caretakers at the bedside. He is maintaining good O2 saturations in the 90s on room air. Currently afebrile. He did have a T-max of 101.2. Patient is seen today in 09/19/2022 in follow-up on the regular medical floor. He is currently awake and alert sitting up in bed. Caretakers at the bedside. Tolerating a diet. Chest x-ray today reveals COPD with worsening bilateral interstitial and airspace disease. Correlate for atypical or multifocal pneumonia. Blood cultures reveal no growth to date. White count 16.2. Hemoglobin 8.0. Sodium 141. Potassium 4.5. Bicarb 24. BUN 36. Creatinine 2.66. Glucose 1:15. Pro-calcitonin 53.2. He is continued on ceftriaxone and azithromycin. Currently afebrile. Hemodynamically stable. The patient is seen today 09/20/2022 in follow-up on the regular medical floor. He is currently resting comfortably in bed. Caretakers at the bedside. He was awake most of the night. He remains afebrile. Hemodynamically stable. No worsening shortness of breath, cough or congestion. Blood cultures reveal no growth to date. Sodium 141. Potassium 4.6. Bicarb 19. BUN 27. Creatinine 2.06. BNP 437. He completed azithromycin. Currently on ceftriaxone. Objective - Vital Signs Vital signs: Vital Signs Temp 98.8 F 09/20/22 03:00 Pulse 74 09/20/22 03:00 Resp 18 09/20/22 03:00 BP 124/55 09/20/22 03:00 Pulse Ox 98 09/20/22 09:05 FiO2 Intake & Output 09/19/22 09/20/22 09/20/22 18:59 06:59 18:59 Other: Voiding Method Diaper Diaper Diaper Incontinent Incontinent Incontinent # Voids 2 2 - Exam GENERAL EXAM: Alert, nonverbal, 52-year-old male patient, on room air, features of Down syndrome, comfortable in no apparent distress. HEAD: Normocephalic. EYES: Normal reaction of pupils, equal size. NOSE: Clear with pink turbinates. THROAT: No erythema or exudates. NECK: No masses, no JVD. CHEST: No chest wall deformity. LUNGS: Equal air entry with few scattered rhonchi bilaterally. CVS: S1 and S2 normal with no audible murmur, regular rhythm. ABDOMEN: No hepatosplenomegaly, normal bowel sounds, no guarding or rigidity. SPINE: No scoliosis or deformity SKIN: No rashes CENTRAL NERVOUS SYSTEM: No focal deficits, tone is normal in all 4 extremities. EXTREMITIES: There is no peripheral edema. No clubbing, no cyanosis. Peripheral pulses are intact. - Labs CBC & Chem 7: 09/20/22 04:07 09/20/22 05:47 Labs: Abnormal Lab Results - Last 24 Hours (Table) 09/20/22 09/20/22 Range/Units 04:07 05:47 RBC 2.79 L (4.30-5.90) m/uL Hgb 8.0 L (13.0-17.5) gm/dL Hct 26.8 L (39.0-53.0) % MCHC 29.8 L (31.0-37.0) g/dL RDW 21.6 H (11.5-15.5) % Chloride 116 H (98-107) mmol/L Carbon Dioxide 19 L (22-30) mmol/L BUN 27 H (9-20) mg/dL Creatinine 2.06 H (0.66-1.25) mg/dL Glucose 113 H (74-99) mg/dL Calcium 7.2 L (8.4-10.2) mg/dL Microbiology - Last 24 Hours (Table) 09/18/22 07:13 Blood Culture - Preliminary Blood No Growth after 48 hours 09/18/22 07:32 Blood Culture - Preliminary Blood No Growth after 48 hours Assessment and Plan Assessment: Acute community-acquired pneumonia bilaterally, pro-calcitonin 53. Cannot rule out aspiration though the patient is eating well. Consult to speech therapy for swallow evaluation Leukocytosis secondary to above Acute kidney injury suspecting secondary to dehydration Anemia Down syndrome Autism History of gout History psoriasis Hypertension Congenital cardiac defects Nonverbal, resides in foster care setting Plan: The patient was seen and evaluated Labs and medications reviewed Currently stable and on room air Continue ceftriaxone Add bronchodilators Swallow evaluation We will continue to follow I have personally seen and examined the patient, performed the documentation and the assessment and plan as written. Number of minutes spent on the visit: 10.
--- NOTE | 2022-09-20 17:24 | P.PN ---
Progress Note - Text Progress Note Date: 09/20/22 Chief Complaint: Cough congestion This is a 52-year-old patient follows with visiting physicians Dr. William. History is obtained by patient's care provider back at the bedside. Patient's sister Nanette Llanos is the guardian At the baseline: Patient is able to feed himself. Able to walk. Does get a BE. Does not talk. Has simple understanding of things. Has underlying diagnosis of Down syndrome/autism. For 3 years have some episodes of not cooperating and shouting at times. For last 10-14 days patient started having a cough. And the caregivers giving [id number]-[id number] medications for the same. Last night decided not to take any cough syrup. Yesterday developed chills, congested productive cough. Tired, decrease oral intake. Overnight he had this morning was given Ativan. Admitted with bilateral pneumonia. IV ceftriaxone. Causing sepsis 09/19/2022: Caregiver at the bedside. Had a good breakfast today. Sounds a bit less congested. IV ceftriaxone. IV fluids. Looks a bit more restful 09/20/2022: Patient was seen this morning. Sleepy. Went to sleep early hours of the morning. Caregiver at the bedside. IV ceftriaxone. No further fever. IV fluids Active Medications Acetaminophen (Acetaminophen Tab 325 Mg Tab) 650 mg PO Q6HR PRN PRN Reason: Fever and/ or Pain Last Admin: 09/18/22 01:05 Dose: 650 mg Albuterol Sulfate (Albuterol Nebulized 2.5 Mg/3 Ml) 2.5 mg INHALATION RT-QID [facility] Last Admin: 09/20/22 16:02 Dose: Not Given Allopurinol (Allopurinol 100 Mg Tab) 200 mg PO DAILY [facility] Last Admin: 09/20/22 09:59 Dose: 200 mg Atorvastatin Calcium (Atorvastatin 20 Mg Tab) 20 mg PO HS [facility] Last Admin: 09/19/22 20:43 Dose: 20 mg Cholecalciferol (Cholecalciferol 25 Mcg (1000 Iu) Tablet) 50 mcg PO Q48H [facility] Last Admin: 09/19/22 08:49 Dose: 50 mcg Enoxaparin Sodium (Enoxaparin 30 Mg/0.3 Ml Syringe) 30 mg SQ DAILY [facility] Last Admin: 09/20/22 09:59 Dose: 30 mg Ferrous Sulfate (Ferrous Sulfate 325 Mg Tab) 325 mg PO DAILY [facility] Last Admin: 09/20/22 09:59 Dose: 325 mg Ceftriaxone Sodium 2 gm/ (Sodium Chloride) 50 mls @ 100 mls/hr IVPB Q24H [facility]; Protocol Stop: 09/21/22 22:29 Last Admin: 09/19/22 20:43 Dose: 100 mls/hr Dextrose/Sodium Chloride (Dextrose 5%-1/2ns Iv Soln) 1,000 mls @ 50 mls/hr IV .Q20H [facility] Last Admin: 09/20/22 13:24 Dose: 50 mls/hr Lorazepam (Lorazepam 2 Mg/Ml Inj) 0.5 mg IV Q8HR PRN PRN Reason: Anxiety Last Admin: 09/18/22 01:06 Dose: 0.5 mg Memantine (Memantine 5 Mg Tab) 5 mg PO BID [facility] Last Admin: 09/20/22 09:59 Dose: 5 mg Miscellaneous Information (Pneumonia Protocol Utilized 1 Each Misc) 1 each PO ONCE PRN PRN Reason: Per Protocol Quetiapine Fumarate (Quetiapine 50 Mg Tab) 50 mg PO HS [facility] Last Admin: 09/19/22 20:43 Dose: 50 mg Triamcinolone Acetonide (Triamcinolone 0.1% Cream 80 Gm Tube) 1 applic TOPICAL BID PRN; Protocol PRN Reason: Rash Past medical history to include: Cognitive impairment, Down syndrome, autism, chronic kidney disease, cardiac defects cringe and Nitrol, Cartia arthritis, psoriasis Social history: Patient has a caregiver called Hong. Lives at the [facility] Nanette Llanos sister: Guardian Physical examination: VITAL SIGNS: 97.4, 84, 18, 125/78, 100% room air GENERAL: Laying in bed, eyes close, more comfortable EYES: Pupils equal. Conjunctiva normal. HEENT: External appearance of nose and ears normal, oral cavity grossly normal. NECK: JVD not raised; masses not palpable. HEART: First and second heart sounds are normal; no edema. LUNGS: Respiratory rate increased coarse breath sounds. ABDOMEN: Soft, nontender, liver spleen not palpable, no masses palpable. PSYCH: Patient does not talkl. INVESTIGATIONS, reviewed in the clinical context: September 20: Potassium 4.6 BUN 27 creatinine 2.06 September 19: White count 16.2 hemoglobin 8 potassium 4.5 BUN 36 creatinine 2.66 procalcitonin 53.2 White count 23.1 hemoglobin 9.2 platelets 434 potassium 4.9 BUN 32 creatinine 2.45. Lactic acid 2.3 Influenza type A,b, RSV, COVID-19: Not detected EKG tracing personally reviewed by me-sinus tachycardia. Nonspecific ST/T-wave changes. Chest x-ray film personally reviewed by [id number] infiltrate Previous labs: Creatinine 2.November Assessment and plan: -Pneumonia suspect gram-negative organism. Causing sepsis: Improving IV ceftriaxone -Sepsis secondary to pneumonia: Improving IV ceftriaxone -Severe cognitive impairment from underlying Down syndrome and autism Patient is nonverbal -Acute kidney injury, prerenal and ATN from sepsis Creatinine peaked at 2.66., Now down to 2.06 -Down syndrome autism -Chronic kidney disease stage III likely nephrosclerosis -Hyperuricemia Allopurinol -Hyperlipidemia Lipitor 20 mg daily at bedtime -Nanette Oakesine [sister]: Guardian Continue IV ceftriaxone. IV fluids. Discussed with caregiver. -
[2022-09-20] MEDS: SODIUM BICARBONATE TAB 650 MG TAB PO SCH ×2 (17:46→21:33)
[2022-09-20] MEDS: QUEtiapine 50 MG TAB PO SCH (21:33)
[2022-09-20] MEDS: ATORVASTATIN 20 MG TAB PO SCH (21:33)
[2022-09-20] MEDS: ACETAMINOPHEN TAB 325 MG TAB PO PRN (23:23)
[2022-09-21 07:52] LABS: African American GFR (CKD) 48 (>60 ml/min/1.73 sqM); Anion Gap 6 mmol/L; Blood Urea Nitrogen 26 mg/dL (9-20); Calcium 7.4 mg/dL (8.4-10.2); Carbon Dioxide 20 mmol/L (22-30); Chloride 116 mmol/L (98-107); Glucose 98 mg/dL (74-99); Non-African American GFR(CKD) 41 (>60 ml/min/1.73 sqM); Potassium 4.8 mmol/L (3.5-5.1); Sodium 142 mmol/L (137-145)
[2022-09-21] MEDS: ALBUTEROL NEBULIZED 2.5 MG/3 ML INHALATION SCH ×2 (10:26→11:34)
[2022-09-21] MEDS: CHOLECALCIFEROL 25 MCG (1000 IU) TABLET PO SCH (11:48)
[2022-09-21] MEDS: allopurinoL 100 MG TAB PO SCH (11:48)
[2022-09-21] MEDS: SODIUM BICARBONATE TAB 650 MG TAB PO SCH (11:49)
[2022-09-21] MEDS: FERROUS SULFATE 325 MG TAB PO SCH (11:49)
[2022-09-21] MEDS: MEMANTINE 5 MG TAB PO SCH (11:49)
[2022-09-21 12:01] VITALS: BP 105/69; PULSE 102; RESP 17; TEMP 97.9
[2022-09-21] MEDS: ENOXAPARIN 30 MG/0.3 ML SYRINGE SQ SCH (12:41)
--- NOTE | 2022-09-21 14:12 | P.PN ---
Subjective Progress Note Date: 09/21/22 This is a 52-year-old male patient with history of gout, hyperlipidemia, Down syndrome and autism. He was brought in to the emergency room yesterday with noted increasing shortness of breath and cough per the caretakers. Chest x-ray revealed some left-sided interstitial pneumonia. White count 20.1. Hemoglobin 9.2. Platelets 434. Sodium 143. Potassium 4.9. Bicarb 20. BUN 32. Creatinine 2.45. Glucose 1. Influenza screen negative. RSV screen negative. COVID-19 screen negative. He's been initiated on ceftriaxone and azithromycin. He is seen today in consultation on the regular medical floor. He is currently resting comfortably in bed. Caretakers at the bedside. He is maintaining good O2 saturations in the 90s on room air. Currently afebrile. He did have a T-max of 101.2. Patient is seen today in 09/19/2022 in follow-up on the regular medical floor. He is currently awake and alert sitting up in bed. Caretakers at the bedside. Tolerating a diet. Chest x-ray today reveals COPD with worsening bilateral interstitial and airspace disease. Correlate for atypical or multifocal pneumonia. Blood cultures reveal no growth to date. White count 16.2. Hemoglobin 8.0. Sodium 141. Potassium 4.5. Bicarb 24. BUN 36. Creatinine 2.66. Glucose 1:15. Pro-calcitonin 53.2. He is continued on ceftriaxone and azithromycin. Currently afebrile. Hemodynamically stable. The patient is seen today 09/20/2022 in follow-up on the regular medical floor. He is currently resting comfortably in bed. Caretakers at the bedside. He was awake most of the night. He remains afebrile. Hemodynamically stable. No worsening shortness of breath, cough or congestion. Blood cultures reveal no growth to date. Sodium 141. Potassium 4.6. Bicarb 19. BUN 27. Creatinine 2.06. BNP 437. He completed azithromycin. Currently on ceftriaxone. The patient is seen today 09/21/2022 in follow-up on the regular medical floor. He is awake and alert. Caretakers at the bedside. Continues to maintain good O2 saturations in the 90s on room air. Afebrile. Hemodynamically stable. Blood cultures revealed no growth. Sodium 142. Potassium 4.8. Bicarb 20. BUN 26. Creatinine 1.81. Remains on bronchodilators. Remains on ceftriaxone. Lovenox for DVT prophylaxis. Objective - Vital Signs Vital signs: Vital Signs Temp 97.9 F 09/21/22 11:57 Pulse 102 H 09/21/22 11:57 Resp 17 09/21/22 11:57 BP 105/69 09/21/22 11:57 Pulse Ox 99 09/21/22 11:57 FiO2 Intake & Output 09/20/22 09/21/22 09/21/22 18:59 06:59 18:59 Intake Total 1090 Balance 1090 Intake: Intake, IV Titration 850 Amount Dextrose 5%-0.45% NaCl 1, 800 000 ml @ 50 mls/hr IV . Q20H [facility] Rx#:[id number] cefTRIAXone 2 gm In 50 Sodium Chloride 0.9% 50 ml @ 100 mls/hr IVPB Q24H [facility] Rx#:[id number] Oral 240 Other: Voiding Method Diaper Toilet Toilet Incontinent Diaper Diaper Incontinent Incontinent # Voids 2 3 # Bowel Movements 1 - Exam GENERAL EXAM: Alert, nonverbal, 52-year-old male, on room air, features of Down syndrome, comfortable in no apparent distress. HEAD: Normocephalic. EYES: Normal reaction of pupils, equal size. NOSE: Clear with pink turbinates. THROAT: No erythema or exudates. NECK: No masses, no JVD. CHEST: No chest wall deformity. LUNGS: Equal air entry with few scattered rhonchi bilaterally. CVS: S1 and S2 normal with no audible murmur, regular rhythm. ABDOMEN: No hepatosplenomegaly, normal bowel sounds, no guarding or rigidity. SPINE: No scoliosis or deformity SKIN: No rashes CENTRAL NERVOUS SYSTEM: No focal deficits, tone is normal in all 4 extremities. EXTREMITIES: There is no peripheral edema. No clubbing, no cyanosis. Peripheral pulses are intact. - Labs CBC & Chem 7: 09/20/22 04:07 09/21/22 06:09 Labs: Abnormal Lab Results - Last 24 Hours (Table) 09/21/22 Range/Units 06:09 Chloride 116 H (98-107) mmol/L Carbon Dioxide 20 L (22-30) mmol/L BUN 26 H (9-20) mg/dL Creatinine 1.81 H (0.66-1.25) mg/dL Calcium 7.4 L (8.4-10.2) mg/dL Microbiology - Last 24 Hours (Table) 09/18/22 07:32 Blood Culture - Preliminary Blood No Growth after 72 hours 09/18/22 07:13 Blood Culture - Preliminary Blood No Growth after 72 hours Assessment and Plan Assessment: Acute community-acquired pneumonia bilaterally, pro-calcitonin 53. Cannot rule out aspiration though the patient is eating well. Swallow evaluation revealed no significant aspiration. Continued on a regular texture diet with thin liquids. Leukocytosis secondary to above Acute kidney injury suspecting secondary to dehydration Anemia Down syndrome Autism History of gout History psoriasis Hypertension Congenital cardiac defects Nonverbal, resides in foster care setting Plan: The patient was seen and evaluated Labs and medications reviewed Swallow evaluation revealed no significant aspiration Currently stable and on room air Home once cleared by medicine Complete a course of antibiotics I have personally seen and examined the patient, performed the documentation and the assessment and plan as written. Number of minutes spent on the visit: 10.
--- NOTE | 2022-09-21 20:03 | P.DS ---
Providers Date of admission: 09/17/22 23:25 Expected date of discharge: 09/21/22 Attending physician: Ayush Saleh Consults: 09/17/22 23:25 Consult Physician Routine Consulting Provider: Phillip Felipe Consult Reason/Comments: pneumonia Do you want consulting provider notified?: Yes Primary care physician: Neil William MD Hospital Course: Chief Complaint: Cough congestion This is a 52-year-old patient follows with visiting physicians Dr. William. History is obtained by patient's care provider back at the bedside. Patient's sister Nanette Llanos is the guardian At the baseline: Patient is able to feed himself. Able to walk. Does get a BE. Does not talk. Has simple understanding of things. Has underlying diagnosis of Down syndrome/autism. For 3 years have some episodes of not cooperating and shouting at times. For last 10-14 days patient started having a cough. And the caregivers giving [id number] medications for the same. Last night decided not to take any cough syrup. Yesterday developed chills, congested productive cough. Tired, decrease oral intake. Overnight he had this morning was given Ativan. Admitted with bilateral pneumonia. IV ceftriaxone. Causing sepsis 09/19/2022: Caregiver at the bedside. Had a good breakfast today. Sounds a bit less congested. IV ceftriaxone. IV fluids. Looks a bit more restful 09/20/2022: Patient was seen this morning. Sleepy. Went to sleep early hours of the morning. Caregiver at the bedside. IV ceftriaxone. No further fever. IV fluids 09/21/2022: Doing well. caregivers at bedside. Did eat food. No fever. Some cough. 3 more days of Ceftin. Past medical history to include: Cognitive impairment, Down syndrome, autism, chronic kidney disease, cardiac defects cringe and Nitrol, Cartia arthritis, psoriasis Social history: Patient has a caregiver called Pitts. Lives at the [facility] Nanette Llanos sister: Guardian Physical examination: VITAL SIGNS: 97.9, 102, 17, 109/69, 99% room air GENERAL: Sitting up in bed, awake, caressing his head EYES: Pupils equal. Conjunctiva normal. HEENT: External appearance of nose and ears normal, oral cavity grossly normal. NECK: JVD not raised; masses not palpable. HEART: First and second heart sounds are normal; no edema. LUNGS: Respiratory rate increased coarse breath sounds. ABDOMEN: Soft, nontender, liver spleen not palpable, no masses palpable. PSYCH: Patient does not talkl. INVESTIGATIONS, reviewed in the clinical context: September 21: Potassium 4.8 bicarbonate 20 BUN 26 creatinine 1.81 September 20: Potassium 4.6 BUN 27 creatinine 2.06 September 19: White count 16.2 hemoglobin 8 potassium 4.5 BUN 36 creatinine 2.66 procalcitonin 53.2 White count 23.1 hemoglobin 9.2 platelets 434 potassium 4.9 BUN 32 creatinine 2.45. Lactic acid 2.3 Influenza type A,b, RSV, COVID-19: Not detected EKG tracing personally reviewed by me-sinus tachycardia. Nonspecific ST/T-wave changes. Chest x-ray film personally reviewed by [id number] infiltrate Previous labs: Creatinine 2.November Assessment and plan: -Pneumonia suspect gram-negative organism. Causing sepsis: Improving IV ceftriaxone. Ceftin 5 mg twice a day for 3 days -Sepsis secondary to pneumonia: Improving IV ceftriaxone -Severe cognitive impairment from underlying Down syndrome and autism Patient is nonverbal -Acute kidney injury, prerenal and ATN from sepsis: Improving Creatinine peaked at 2.66., Now down to 1.81 -Down syndrome autism -Chronic kidney disease stage III likely nephrosclerosis -Hyperuricemia Allopurinol -Hyperlipidemia Lipitor 20 mg daily at bedtime -Nanette Llanos [sister]: Guardian Disposition: Home - Plan - Discharge Summary Discharge Rx Participant: No New Discharge Prescriptions: New cefUROXime axetiL [Ceftin] 500 mg PO BID #6 tab Sodium Bicarbonate Tab 650 mg PO TID #20 tab Continue Ferrous Sulfate [Iron (65 MG Elemental)] 325 mg PO DAILY allopurinoL [Zyloprim] 200 mg PO DAILY Cholecalciferol (Vitamin D3) [Vitamin D3] 50 mcg PO Q48H QUEtiapine [SEROquel] 50 mg PO HS Memantine [Namenda] 10 mg PO BID Atorvastatin [Lipitor] 20 mg PO HS Triamcinolone 0.1% Cream [Kenalog 0.1% Cream] 1 applicatio TOPICAL BID PRN PRN Reason: Rash Discontinued hydrOXYzine HCL [Atarax] 25 mg PO HS Furosemide [Lasix] 20 mg PO DAILY Discharge Medication List Ferrous Sulfate [Iron (65 MG Elemental)] 325 mg PO DAILY 06/01/18 [History] allopurinoL [Zyloprim] 200 mg PO DAILY 06/01/18 [History] Cholecalciferol (Vitamin D3) [Vitamin D3] 50 mcg PO Q48H 07/26/19 [History] QUEtiapine [SEROquel] 50 mg PO HS 07/26/19 [History] Atorvastatin [Lipitor] 20 mg PO HS 09/18/22 [History] Memantine [Namenda] 10 mg PO BID 09/18/22 [History] Triamcinolone 0.1% Cream [Kenalog 0.1% Cream] 1 applicatio TOPICAL BID PRN 09/18/22 [History] Sodium Bicarbonate Tab 650 mg PO TID #20 tab 09/21/22 [Rx] cefUROXime axetiL [Ceftin] 500 mg PO BID #6 tab 09/21/22 [Rx] Follow up Appointment(s)/Referral(s): Neil William MD [Primary Care Provider] - 1 Week (Visiting physician - [facility] to set up appointment) Patient Instructions/Handouts: Cefuroxime (By mouth), Sodium Bicarbonate (By mouth), Bacterial Pneumonia (DC), Aspiration Precautions (DC) Activity/Diet/Wound Care/Special Instructions: Aspiration precautions. Patient should be up in chair for meals 90 degrees. Small frequent meals, small bites, small sips. Discharge Disposition: TRANSFER TO SNF/ECF
[2022-09-22] MEDS ORDERED: ENOXAPARIN 40 MG/0.4 ML SYRINGE SQ SCH (09:00)
== END 2022-09-21 14:23 | DRG 871 ==
LOC: EC 21:14 → 5NMEDONC 23:25
PROVIDERS: ADMIT Hospitalist; ATTEND Hospitalist
DX: A41.50 Gram-negative sepsis, unspecified (principal); J15.6 Pneumonia due to other Gram-negative bacteria; N17.0 Acute kidney failure with tubular necrosis; J44.0 Chronic obstructive pulmonary disease with (acute) lower respiratory infection; J84.9 Interstitial pulmonary disease, unspecified; F84.0 Autistic disorder; F03.90 Unspecified dementia, unspecified severity, without behavioral disturbance, psychotic disturbance, mood disturbance, and anxiety; R65.20 Severe sepsis without septic shock; N18.30 Chronic kidney disease, stage 3 unspecified; I12.9 Hypertensive chronic kidney disease with stage 1 through stage 4 chronic kidney disease, or unspecified chronic kidney disease; Q90.9 Down syndrome, unspecified; E78.5 Hyperlipidemia, unspecified; L40.9 Psoriasis, unspecified; R41.89 Other symptoms and signs involving cognitive functions and awareness; E79.0 Hyperuricemia without signs of inflammatory arthritis and tophaceous disease; Z20.822 Contact with and (suspected) exposure to COVID-19; Q24.9 Congenital malformation of heart, unspecified; Z87.01 Personal history of pneumonia (recurrent); Z88.0 Allergy status to penicillin; Z79.899 Other long term (current) drug therapy
CPT/HCPCS: 36415; 71045; 71046; 80048; 83880; 84145; 85025; 87040; 87636; 93005; 94640; 94760; 96365; 96375; 99285